=== PATIENT | male | born 1930 | race Caucasian/White ===

== ENCOUNTER 2018-05-06 11:44 | Inpatient (IN) ==
[2018-05-06] MEDS ORDERED: SODIUM CHLORIDE 0.9% 1,000 ML IV STA (13:13)
[2018-05-06 14:15] LABS: Basophils # 0.1 10*3/uL (0.0-0.2); Basophils % 0.8 % (0.0-0.8); Eosinophils # 0.2 10*3/uL (0.0-0.87); Eosinophils % 3.9 % (0.00-10.9); Hematocrit 41.4 VOL% (42.0-52.0); Hemoglobin 13.7 GM/DL (14.0-18.0); Immature Granulocytes % 0.2 %; Immature Granulocytes Absolute 0.01 #; Lymphocytes # 1.8 10*3/uL (1.4-4.0); Lymphocytes % 29.3 % (21.2-54.2); Mean Corpuscular HGB Conc 33.1 GM/DL (32-36); Mean Corpuscular Hemoglobin 32 PG (27-34); Mean Corpuscular Volume 96.3 FL (87-102); Mean Platelet Volume 9.6 FL (9.6-12.0); Monocytes # 0.7 10*3/uL (0.11-0.8); Monocytes % 10.7 % (1.7-12.7); Neutrophils # 3.4 10*3/uL (1.4-7.4); Neutrophils % 55.1 % (38.7-73.9); Platelet Count 115 T/CUMM (130-400); Red Cell Distribution Width 12.1 % (9.3-17.3); White Blood Count 6.2 T/CUMM (4-12)
[2018-05-06 14:30] LABS: INR 1.1; PT Patient Result 11.4 SECS
[2018-05-06 14:31] LABS: Apearance,Urine CLOUDY (Clear); Bacteria,Urine Many /HPF (Few); Bilirubin,Urine Negative (Negative); Blood, Urine Small mg/dL (Negative); Glucose,Urine (UA) Negative (Negative); Hyaline Casts,Urine 18 /LPF (0-3); Ketones,Urine Negative (Negative); Mucus,Urine Occasional /LPF (Occasional); Nitrite,Urine Positive (Negative); Protein,Urine Negative; RBC,Urine 13 /HPF (0-4); Renal Epithelial Cells,Urine Few /HPF (<1); Squamous Epithelial Cell,Urine Occasional /HPF (0-10); Transitional Epi Cells,Urine Occasional /HPF (<1); Urine Color Yellow (Yellow); Urine Specific Gravity 1.014 (1.001-1.035); Urine Urobilinogen < 2.0 EU/DL (0.2-1.0); WBC,Urine 74 /HPF (0-6)
[2018-05-06 14:44] LABS: Alanine Aminotransferase 18 U/L (16-61); Albumin 3.3 G/DL (3.4-5.0); Alkaline Phosphatase 56 U/L (45-117); Aspartate Amino Transferase 13 U/L (0-37); Bilirubin,Total < 0.39 MG/DL (0.2-1.0); Blood Urea Nitrogen 36 MG/DL (7-18); Calcium 8.6 MG/DL (8.5-10.1); Glucose 112 MG/DL (74-106); Osmolality,Calculated 291.1 MOS/KG (273-304); Potassium 3.8 MMOL/L (3.5-5.1); Sodium 142 MMOL/L (136-145); Total Protein 6.5 G/DL (6.4-8.3)
[2018-05-06] MEDS ORDERED: MEROPENEM 500 MG in SODIUM CHLORIDE 0.9% 100 ML IV STA (14:51)
[2018-05-06] MEDS: ACETAMINOPHEN 325 MG TABLET PO PRN (16:00)
[2018-05-06] MEDS ORDERED: INFLUENZA VIRUS VACCINE 0.5 ML SYRINGE IM ONE (17:35)
[2018-05-06] MEDS: CARVEDILOL 3.125 MG TABLET PO SCH (17:55)
[2018-05-06] MEDS: SODIUM CHLORIDE 0.9% 1,000 ML IV SCH (17:55)
[2018-05-06] MEDS: SIMVASTATIN 40 MG TABLET PO SCH (21:10)
[2018-05-06] MEDS: METHENAMINE HIPPURATE 1 GM TABLET PO SCH (21:10)
[2018-05-06] MEDS: DOCUSATE SODIUM 100 MG CAPSULE PO SCH (21:10)
[2018-05-07] MEDS: SODIUM CHLORIDE 0.9% 1,000 ML IV SCH ×2 (01:13→19:41)
[2018-05-07 05:06] LABS: Basophils % 0.7 % (0.0-0.8); Eosinophils # 0.3 10*3/uL (0.0-0.87); Eosinophils % 5.7 % (0.00-10.9); Hematocrit 38.3 VOL% (42.0-52.0); Hemoglobin 12.7 GM/DL (14.0-18.0); Immature Granulocytes % 0.2 %; Immature Granulocytes Absolute 0.01 #; Lymphocytes # 1.7 10*3/uL (1.4-4.0); Lymphocytes % 30.9 % (21.2-54.2); Mean Corpuscular HGB Conc 33.2 GM/DL (32-36); Mean Corpuscular Hemoglobin 32 PG (27-34); Mean Corpuscular Volume 96.5 FL (87-102); Mean Platelet Volume 10.4 FL (9.6-12.0); Monocytes # 0.7 10*3/uL (0.11-0.8); Monocytes % 13.1 % (1.7-12.7); Neutrophils # 2.7 10*3/uL (1.4-7.4); Neutrophils % 49.4 % (38.7-73.9); Platelet Count 99 T/CUMM (130-400); Red Blood Count 3.97 MC/CUMM (3.8-5.5); Red Cell Distribution Width 12.1 % (9.3-17.3); White Blood Count 5.4 T/CUMM (4-12)
[2018-05-07 05:32] LABS: Calcium 8.4 MG/DL (8.5-10.1); Osmolality,Calculated 295.7 MOS/KG (273-304); Potassium 3.5 MMOL/L (3.5-5.1)
[2018-05-07 05:38] LABS: Eosinophils 6 % (0-10); Hypochromasia 1+; Lymphocytes 38 % (20-55); Platelet Estimate Decreased; Segmented Neutrophils 42 % (50-85); Total Cells Counted 100
[2018-05-07] MEDS: MEROPENEM 500 MG in SODIUM CHLORIDE 0.9% 100 ML IV SCH ×2 (06:31→21:15)
[2018-05-07] MEDS: METHENAMINE HIPPURATE 1 GM TABLET PO SCH ×2 (11:55→21:14)
[2018-05-07] MEDS: FUROSEMIDE 20 MG TABLET PO SCH (11:55)
[2018-05-07] MEDS: CARVEDILOL 3.125 MG TABLET PO SCH ×2 (11:55→16:08)
[2018-05-07] MEDS: ASPIRIN EC 81 MG TABLET PO SCH (11:56)
[2018-05-07] MEDS: GLIMEPIRIDE 2 MG TABLET PO SCH (11:56)
[2018-05-07] MEDS: PANTOPRAZOLE 40 MG TABLET PO SCH (11:56)
[2018-05-07] MEDS: MULTIVITAMIN (CENTRUM) TABLET PO SCH (11:56)
[2018-05-07] MEDS: CITALOPRAM 20 MG TABLET PO SCH (11:56)
[2018-05-07] MEDS: DOCUSATE SODIUM 100 MG CAPSULE PO SCH ×2 (11:56→21:14)
[2018-05-07] MEDS: ACETAMINOPHEN 325 MG TABLET PO PRN (16:07)
[2018-05-07] MEDS: SIMVASTATIN 40 MG TABLET PO SCH (21:14)
[2018-05-08] MEDS: SODIUM CHLORIDE 0.9% 1,000 ML IV SCH ×3 (04:09→20:35)
[2018-05-08] MEDS: CITALOPRAM 20 MG TABLET PO SCH (09:34)
[2018-05-08] MEDS: GLIMEPIRIDE 2 MG TABLET PO SCH (09:34)
[2018-05-08] MEDS: FUROSEMIDE 20 MG TABLET PO SCH (09:34)
[2018-05-08] MEDS: DOCUSATE SODIUM 100 MG CAPSULE PO SCH ×2 (09:34→21:19)
[2018-05-08] MEDS: METHENAMINE HIPPURATE 1 GM TABLET PO SCH ×2 (09:35→21:19)
[2018-05-08] MEDS: PANTOPRAZOLE 40 MG TABLET PO SCH (09:35)
[2018-05-08] MEDS: MULTIVITAMIN (CENTRUM) TABLET PO SCH (09:35)
[2018-05-08] MEDS: MEROPENEM 500 MG in SODIUM CHLORIDE 0.9% 100 ML IV SCH ×2 (09:35→21:22)
[2018-05-08] MEDS: ASPIRIN EC 81 MG TABLET PO SCH (09:35)
[2018-05-08] MEDS: CARVEDILOL 3.125 MG TABLET PO SCH ×2 (09:35→18:09)
[2018-05-08] MEDS: ACETAMINOPHEN 325 MG TABLET PO PRN (09:36)
[2018-05-08] MEDS ORDERED: amLODIPine 5 MG TABLET PO SCH (16:00)
[2018-05-08] MEDS ORDERED: ZIPRASIDONE 20 MG/1 ML VIAL IM ONE (17:21)
[2018-05-08] MEDS: SIMVASTATIN 40 MG TABLET PO SCH (21:19)
[2018-05-09] MEDS: SODIUM CHLORIDE 0.9% 1,000 ML IV SCH ×4 (01:37→22:49)
[2018-05-09] MEDS: MEROPENEM 500 MG in SODIUM CHLORIDE 0.9% 100 ML IV SCH ×2 (05:20→18:16)
[2018-05-09] MEDS: CITALOPRAM 20 MG TABLET PO SCH (08:16)
[2018-05-09] MEDS: GLIMEPIRIDE 2 MG TABLET PO SCH (08:16)
[2018-05-09] MEDS: PANTOPRAZOLE 40 MG TABLET PO SCH (08:17)
[2018-05-09] MEDS: DOCUSATE SODIUM 100 MG CAPSULE PO SCH ×2 (08:17→20:01)
[2018-05-09] MEDS: MULTIVITAMIN (CENTRUM) TABLET PO SCH (08:17)
[2018-05-09] MEDS: METHENAMINE HIPPURATE 1 GM TABLET PO SCH ×2 (08:17→20:01)
[2018-05-09] MEDS: CARVEDILOL 3.125 MG TABLET PO SCH (08:18)
[2018-05-09] MEDS: FUROSEMIDE 20 MG TABLET PO SCH (08:18)
[2018-05-09] MEDS: ASPIRIN EC 81 MG TABLET PO SCH (08:21)
[2018-05-09] MEDS: ASCORBIC ACID 500 MG TABLET PO SCH ×2 (14:16→20:01)
[2018-05-09] MEDS ORDERED: ZIPRASIDONE 20 MG/1 ML VIAL IM ONE (18:00)
[2018-05-09] MEDS: CARVEDILOL 6.25 MG TABLET PO SCH (18:18)
[2018-05-09] MEDS: SIMVASTATIN 40 MG TABLET PO SCH (20:01)
[2018-05-10 05:32] LABS: VLDL CHOLESTEROL 39.4 MG/DL
[2018-05-10] MEDS ORDERED: REGADENOSON 0.4 MG/5 ML SYRINGE IV ONE (09:22)
[2018-05-10] MEDS: ACETAMINOPHEN 325 MG TABLET PO PRN (09:39)
[2018-05-10] MEDS: MEROPENEM 500 MG in SODIUM CHLORIDE 0.9% 100 ML IV SCH ×2 (09:39→17:18)
[2018-05-10] MEDS: GLIMEPIRIDE 2 MG TABLET PO SCH (09:40)
[2018-05-10] MEDS: METHENAMINE HIPPURATE 1 GM TABLET PO SCH ×2 (09:40→20:35)
[2018-05-10] MEDS: FUROSEMIDE 20 MG TABLET PO SCH (09:40)
[2018-05-10] MEDS: MULTIVITAMIN (CENTRUM) TABLET PO SCH (09:40)
[2018-05-10] MEDS: ASPIRIN EC 81 MG TABLET PO SCH (09:41)
[2018-05-10] MEDS: CITALOPRAM 20 MG TABLET PO SCH (09:41)
[2018-05-10] MEDS: DOCUSATE SODIUM 100 MG CAPSULE PO SCH ×2 (09:41→20:35)
[2018-05-10] MEDS: PANTOPRAZOLE 40 MG TABLET PO SCH (09:41)
[2018-05-10] MEDS: ASCORBIC ACID 500 MG TABLET PO SCH ×2 (09:41→20:35)
[2018-05-10] MEDS: CARVEDILOL 6.25 MG TABLET PO SCH ×2 (09:42→16:17)
[2018-05-10] MEDS: SODIUM CHLORIDE 0.9% 1,000 ML IV SCH ×3 (09:42→20:37)
[2018-05-10] MEDS: OMEGA 3 ACID ETHYL ESTERS 1 GM CAPSULE PO SCH (15:10)
[2018-05-10] MEDS: AMITRIPTYLINE 25 MG TABLET PO PRN (20:35)
[2018-05-10] MEDS: ATORVASTATIN 40 MG TABLET PO SCH (20:35)
[2018-05-11] MEDS: cloNIDine 0.1 MG TABLET PO PRN (00:06)
[2018-05-11] MEDS: SODIUM CHLORIDE 0.9% 1,000 ML IV SCH ×2 (05:10→13:01)
[2018-05-11] MEDS ORDERED: VANCOMYCIN INJ 500 MG in SODIUM CHLORIDE 0.9% 100 ML IV ONE (06:00)
[2018-05-11] MEDS: MEROPENEM 500 MG in SODIUM CHLORIDE 0.9% 100 ML IV SCH ×2 (07:12→18:14)
[2018-05-11] MEDS ORDERED: HEPARIN 5,000 UNIT/1 ML VIAL ONE (08:09)
[2018-05-11] MEDS ORDERED: LIDOCAINE 1% 20 ML VIAL ONE (08:10)
[2018-05-11] MEDS: CARVEDILOL 6.25 MG TABLET PO SCH ×2 (08:12→17:09)
[2018-05-11] MEDS ORDERED: NITROGLYCERIN DRIP 50 MG/250 ML BOTTLE IV ONE ×2 (09:23→09:39)
[2018-05-11] MEDS ORDERED: PHENYLEPHRINE DRIP 20 MG/250 ML PREMIX IV ONE (09:23)
[2018-05-11] MEDS ORDERED: HEPARIN/NACL 0.9% 2 UNITS/ML 500 ML IV ONE (09:23)
[2018-05-11] MEDS: LACTATED RINGERS 1,000 ML IV SCH ×3 (10:01→23:30)
[2018-05-11] MEDS ORDERED: NALOXONE 0.4 MG/ML VIAL IV PRN (11:32)
[2018-05-11] MEDS ORDERED: GLUCAGON 1 MG VIAL IM PRN (11:32)
[2018-05-11] MEDS ORDERED: oxyCODONE/ACETAMINOPHEN 5-325 MG TABLET PO PRN (11:32)
[2018-05-11] MEDS ORDERED: DEXTROSE 50% 25 GM/50 ML SYRINGE IV PRN (11:32)
[2018-05-11] MEDS ORDERED: fentaNYL 100 MCG/2 ML VIAL ONE (12:05)
[2018-05-11] MEDS ORDERED: HEPARIN 10,000 UNIT/10 ML VIAL ONE (12:06)
[2018-05-11] MEDS ORDERED: PROPOFOL 200 MG/20 ML VIAL IV ONE (12:06)
[2018-05-11] MEDS ORDERED: ONDANSETRON 4 MG/2 ML VIAL ONE (12:06)
[2018-05-11] MEDS ORDERED: SEVOFLURANE 1 UNIT/15 MINUTE INH ONE (12:06)
[2018-05-11] MEDS ORDERED: ePHEDrine 50 MG/ML AMP ONE (12:06)
[2018-05-11] MEDS ORDERED: ROCURONIUM 100 MG/10 ML VIAL IV ONE (12:07)
[2018-05-11] MEDS ORDERED: NEOSTIGMINE 10 MG/10 ML VIAL ONE (12:07)
[2018-05-11] MEDS ORDERED: GLYCOPYRROLATE 0.4 MG/2 ML VIAL ONE (12:07)
[2018-05-11] MEDS ORDERED: LABETALOL 100 MG/20 ML VIAL IV ONE (12:07)
[2018-05-11] MEDS ORDERED: PROTAMINE SULFATE 50 MG/5 ML VIAL IV ONE (12:07)
[2018-05-11] MEDS ORDERED: NITROPRUSSIDE 50 MG/2 ML VIAL ONE ×2 (12:48)
[2018-05-11] MEDS: HYDROmorphone 2 MG/1 ML VIAL IV PRN ×2 (12:51→17:09)
[2018-05-11] MEDS: NITROPRUSSIDE 100 MG in DEXTROSE 5% 250 ML IV SCH (12:55)
[2018-05-11] MEDS: MULTIVITAMIN (CENTRUM) TABLET PO SCH (12:58)
[2018-05-11] MEDS: METHENAMINE HIPPURATE 1 GM TABLET PO SCH ×2 (12:58→20:20)
[2018-05-11] MEDS: DOCUSATE SODIUM 100 MG CAPSULE PO SCH ×2 (12:58→22:00)
[2018-05-11] MEDS: ASPIRIN EC 81 MG TABLET PO SCH (12:58)
[2018-05-11] MEDS: GLIMEPIRIDE 2 MG TABLET PO SCH (12:58)
[2018-05-11] MEDS: FUROSEMIDE 20 MG TABLET PO SCH (12:59)
[2018-05-11] MEDS: PANTOPRAZOLE 40 MG TABLET PO SCH (12:59)
[2018-05-11] MEDS: OMEGA 3 ACID ETHYL ESTERS 1 GM CAPSULE PO SCH (12:59)
[2018-05-11] MEDS: SERTRALINE 25 MG TABLET PO SCH (12:59)
[2018-05-11] MEDS: ASCORBIC ACID 500 MG TABLET PO SCH ×2 (12:59→20:20)
[2018-05-11] MEDS: PHENYLEPHRINE DRIP 40 MG/250 ML PREMIX IV SCH (12:59)
[2018-05-11] MEDS: ATORVASTATIN 40 MG TABLET PO SCH (20:21)
[2018-05-12] MEDS: HYDROmorphone 2 MG/1 ML VIAL IV PRN ×4 (00:04→23:06)
[2018-05-12 04:20] LABS: Basophils % 0.6 % (0.0-0.8); Eosinophils # 0.1 10*3/uL (0.0-0.87); Eosinophils % 1.6 % (0.00-10.9); Hematocrit 33.7 VOL% (42.0-52.0); Hemoglobin 11.1 GM/DL (14.0-18.0); Immature Granulocytes % 0.3 %; Immature Granulocytes Absolute 0.02 #; Lymphocytes # 1.2 10*3/uL (1.4-4.0); Lymphocytes % 16.5 % (21.2-54.2); Mean Corpuscular HGB Conc 32.9 GM/DL (32-36); Mean Corpuscular Hemoglobin 32 PG (27-34); Mean Corpuscular Volume 96.8 FL (87-102); Mean Platelet Volume 9.7 FL (9.6-12.0); Monocytes # 0.7 10*3/uL (0.11-0.8); Monocytes % 10.2 % (1.7-12.7); Neutrophils % 70.8 % (38.7-73.9); Platelet Count 101 T/CUMM (130-400); Red Blood Count 3.48 MC/CUMM (3.8-5.5); Red Cell Distribution Width 12.7 % (9.3-17.3)
[2018-05-12 04:38] LABS: Calcium 8.3 MG/DL (8.5-10.1); Osmolality,Calculated 286.1 MOS/KG (273-304); Potassium 3.9 MMOL/L (3.5-5.1)
[2018-05-12] MEDS: cloNIDine 0.1 MG TABLET PO PRN (05:30)
[2018-05-12] MEDS: NITROPRUSSIDE 100 MG in DEXTROSE 5% 250 ML IV SCH ×3 (05:41→19:07)
[2018-05-12] MEDS: MEROPENEM 500 MG in SODIUM CHLORIDE 0.9% 100 ML IV SCH ×2 (06:57→18:04)
[2018-05-12] MEDS: ONDANSETRON 4 MG/2 ML VIAL IV PRN (07:43)
[2018-05-12] MEDS ORDERED: NITROGLYCERIN SL 0.4 MG TABLET SL PRN (07:51)
[2018-05-12] MEDS ORDERED: ASPIRIN EC 325 MG TABLET PO ONE (08:06)
[2018-05-12] MEDS ORDERED: METOPROLOL TARTRATE 5 MG/5 ML VIAL IV ONE ×2 (08:09→08:20)
[2018-05-12] MEDS ORDERED: NITROGLYCERIN DRIP 50 MG/250 ML BOTTLE IV ONE (08:11)
[2018-05-12] MEDS ORDERED: ASPIRIN 325 MG TABLET PO ONE (08:16)
[2018-05-12] MEDS: NITROGLYCERIN DRIP 50 MG/250 ML BOTTLE IV SCH (08:17)
[2018-05-12] MEDS ORDERED: METOPROLOL TARTRATE 50 MG TABLET PO ONE (08:18)
[2018-05-12] MEDS ORDERED: POTASSIUM CHLORIDE 20 MEQ TABLET PO PRN (08:24)
[2018-05-12] MEDS ORDERED: MAGNESIUM SULF RIDER 2 GM in PREMIX 1 EACH IV PRN (08:24)
[2018-05-12] MEDS: ENOXAPARIN 80 MG/0.8 ML SYRINGE SUBCUT SCH ×2 (08:26→21:03)
[2018-05-12] MEDS ORDERED: ENOXAPARIN 100 MG/ML SYRINGE SUBCUT SCH (08:30)
[2018-05-12] MEDS: LACTATED RINGERS 1,000 ML IV SCH ×2 (08:34→09:47)
[2018-05-12] MEDS: ASPIRIN EC 81 MG TABLET PO SCH (08:51)
[2018-05-12] MEDS: GLIMEPIRIDE 2 MG TABLET PO SCH (09:40)
[2018-05-12] MEDS: DOCUSATE SODIUM 100 MG CAPSULE PO SCH ×2 (09:41→21:03)
[2018-05-12] MEDS: MULTIVITAMIN (CENTRUM) TABLET PO SCH (09:41)
[2018-05-12] MEDS: CLOPIDOGREL 75 MG TABLET PO SCH (09:41)
[2018-05-12] MEDS: FUROSEMIDE 20 MG TABLET PO SCH (09:41)
[2018-05-12] MEDS: PANTOPRAZOLE 40 MG TABLET PO SCH (09:41)
[2018-05-12] MEDS: OMEGA 3 ACID ETHYL ESTERS 1 GM CAPSULE PO SCH (09:41)
[2018-05-12] MEDS: METHENAMINE HIPPURATE 1 GM TABLET PO SCH ×2 (09:41→21:03)
[2018-05-12] MEDS: METOPROLOL TARTRATE 50 MG TABLET PO SCH ×2 (09:42→21:03)
[2018-05-12] MEDS: ASCORBIC ACID 500 MG TABLET PO SCH ×2 (09:42→21:05)
[2018-05-12] MEDS: SERTRALINE 25 MG TABLET PO SCH (09:42)
[2018-05-12] MEDS: CARVEDILOL 6.25 MG TABLET PO SCH (09:45)
[2018-05-12] MEDS: PHENYLEPHRINE DRIP 40 MG/250 ML PREMIX IV SCH (11:25)
[2018-05-12] MEDS: ATORVASTATIN 40 MG TABLET PO SCH (21:03)
[2018-05-13] MEDS: ONDANSETRON 4 MG/2 ML VIAL IV PRN (02:11)
[2018-05-13] MEDS ORDERED: DEXAMETHASONE 10 MG/1 ML VIAL IV ONE (06:08)
[2018-05-13] MEDS: MEROPENEM 500 MG in SODIUM CHLORIDE 0.9% 100 ML IV SCH ×2 (06:32→17:44)
[2018-05-13] MEDS ORDERED: RACEPINEPHRINE 0.5 ML NEB RESP TX ONE (06:53)
[2018-05-13] MEDS ORDERED: ETOMIDATE 20 MG/10 ML VIAL IV ONE ×2 (07:00→07:09)
[2018-05-13] MEDS ORDERED: SUCCINYLCHOLINE 200 MG/10 ML VIAL ONE (07:01)
[2018-05-13] MEDS ORDERED: VECURONIUM 10 MG VIAL IV ONE (07:02)
[2018-05-13] MEDS ORDERED: SUCCINYLCHOLINE 200 MG/10 ML VIAL IV ONE (07:09)
[2018-05-13] MEDS: NITROGLYCERIN DRIP 50 MG/250 ML BOTTLE IV SCH (07:27)
[2018-05-13] MEDS: PROPOFOL 1,000 MG/100 ML BOTTLE IV SCH ×3 (07:30→18:25)
[2018-05-13] MEDS ORDERED: LIDOCAINE 2% TOP JELLY 20 ML VIAL INTRAURETH ONE ×2 (08:14→08:49)
[2018-05-13] MEDS ORDERED: VANCOMYCIN 500 MG VIAL ONE (08:23)
[2018-05-13] MEDS: GLIMEPIRIDE 2 MG TABLET PO SCH (09:04)
[2018-05-13] MEDS: CLOPIDOGREL 75 MG TABLET PO SCH (09:04)
[2018-05-13] MEDS: OMEGA 3 ACID ETHYL ESTERS 1 GM CAPSULE PO SCH (09:04)
[2018-05-13] MEDS: MULTIVITAMIN (CENTRUM) TABLET PO SCH (09:04)
[2018-05-13] MEDS: DOCUSATE SODIUM 100 MG CAPSULE PO SCH ×2 (09:04→21:17)
[2018-05-13] MEDS: METHENAMINE HIPPURATE 1 GM TABLET PO SCH ×2 (09:04→21:17)
[2018-05-13] MEDS: ASPIRIN EC 81 MG TABLET PO SCH (09:04)
[2018-05-13] MEDS: FUROSEMIDE 20 MG TABLET PO SCH (09:04)
[2018-05-13] MEDS: SERTRALINE 25 MG TABLET PO SCH (09:05)
[2018-05-13] MEDS: ASCORBIC ACID 500 MG TABLET PO SCH ×2 (09:05→21:18)
[2018-05-13] MEDS: PANTOPRAZOLE 40 MG TABLET PO SCH (09:05)
[2018-05-13] MEDS ORDERED: MIDAZOLAM 2 MG/2 ML VIAL ONE (09:27)
[2018-05-13] MEDS ORDERED: ROCURONIUM 100 MG/10 ML VIAL IV ONE (09:27)
[2018-05-13] MEDS ORDERED: PROPOFOL 200 MG/20 ML VIAL IV ONE (09:27)
[2018-05-13] MEDS ORDERED: PHENYLEPHRINE 1 MG/10 ML SYRINGE IV ONE (09:27)
[2018-05-13] MEDS ORDERED: fentaNYL 100 MCG/2 ML VIAL ONE (09:27)
[2018-05-13] MEDS ORDERED: SEVOFLURANE 1 UNIT/15 MINUTE INH ONE (09:27)
[2018-05-13] MEDS ORDERED: ENOXAPARIN 40 MG/0.4 ML SYRINGE SUBCUT ONE (09:34)
[2018-05-13 09:36] LABS: Apearance,Urine CLEAR (Clear); Bilirubin,Urine Negative (Negative); Blood, Urine Small mg/dL (Negative); Glucose,Urine (UA) Negative (Negative); Ketones,Urine 5 mg/dL (Negative); Mucus,Urine Occasional /LPF (Occasional); Nitrite,Urine Negative (Negative); Protein,Urine Negative; RBC,Urine 6 /HPF (0-4); Squamous Epithelial Cell,Urine Occasional /HPF (0-10); Urine Color Straw (Yellow); Urine Specific Gravity 1.008 (1.001-1.035); Urine Urobilinogen < 2.0 EU/DL (0.2-1.0); WBC,Urine 1 /HPF (0-6)
[2018-05-13] MEDS: METOPROLOL TARTRATE 50 MG TABLET PO SCH ×2 (09:43→21:18)
[2018-05-13 09:51] LABS: Allen Test Positive; Pt O2 Delivery Device Ventilator
[2018-05-13 09:52] LABS: ABG Base Excess -2.6 MMOL/L (-2.5-2.5); ABG HCO3 22.2 MMOL/L (20-26); ABG Oxygen Saturation 97.6 % (95-100); ABG PCO2 34.6 MM HG (35-48); ABG PH 7.403 (7.35-7.45); ABG PO2 90.6 MM HG (80-95); ABG TCO2 19.4 MMOL/L (23-27)
[2018-05-13] MEDS: LACTATED RINGERS 1,000 ML IV SCH (10:23)
[2018-05-13] MEDS: HYDROmorphone 2 MG/1 ML VIAL IV PRN ×2 (11:23→17:44)
[2018-05-13] MEDS: PHENYLEPHRINE DRIP 40 MG/250 ML PREMIX IV SCH (11:38)
[2018-05-13] MEDS: ALBUTEROL/IPRATROPIUM 3 ML NEB RESP TX SCH ×2 (12:47→19:44)
[2018-05-13] MEDS: NITROPRUSSIDE 100 MG in DEXTROSE 5% 250 ML IV SCH (13:11)
[2018-05-13] MEDS: ATORVASTATIN 40 MG TABLET PO SCH (21:18)
[2018-05-14] MEDS: PROPOFOL 1,000 MG/100 ML BOTTLE IV SCH ×5 (00:20→18:22)
[2018-05-14] MEDS: ALBUTEROL/IPRATROPIUM 3 ML NEB RESP TX SCH ×4 (01:15→20:21)
[2018-05-14] MEDS: HYDROmorphone 2 MG/1 ML VIAL IV PRN ×5 (04:56→21:10)
[2018-05-14 05:25] LABS: Basophils % 0.2 % (0.0-0.8); Eosinophils # 0.1 10*3/uL (0.0-0.87); Eosinophils % 0.7 % (0.00-10.9); Hematocrit 30.3 VOL% (42.0-52.0); Immature Granulocytes % 0.5 %; Immature Granulocytes Absolute 0.04 #; Lymphocytes # 1.4 10*3/uL (1.4-4.0); Mean Corpuscular Hemoglobin 32 PG (27-34); Mean Corpuscular Volume 95.9 FL (87-102); Mean Platelet Volume 10.3 FL (9.6-12.0); Monocytes % 11.4 % (1.7-12.7); Neutrophils # 6.1 10*3/uL (1.4-7.4); Neutrophils % 71.2 % (38.7-73.9); Platelet Count 100 T/CUMM (130-400); Red Blood Count 3.16 MC/CUMM (3.8-5.5); Red Cell Distribution Width 12.3 % (9.3-17.3); White Blood Count 8.6 T/CUMM (4-12)
[2018-05-14 05:37] LABS: Calcium 8.4 MG/DL (8.5-10.1); Osmolality,Calculated 291.1 MOS/KG (273-304); Potassium 3.3 MMOL/L (3.5-5.1)
[2018-05-14] MEDS ORDERED: VANCOMYCIN INJ 500 MG in SODIUM CHLORIDE 0.9% 100 ML IV ONE (09:00)
[2018-05-14] MEDS: GLIMEPIRIDE 2 MG TABLET PO SCH (09:01)
[2018-05-14] MEDS: NITROGLYCERIN DRIP 50 MG/250 ML BOTTLE IV SCH (09:02)
[2018-05-14] MEDS: DOCUSATE SODIUM 100 MG CAPSULE PO SCH ×2 (09:02→20:41)
[2018-05-14] MEDS: ASPIRIN EC 81 MG TABLET PO SCH (09:02)
[2018-05-14] MEDS: MULTIVITAMIN (CENTRUM) TABLET PO SCH (09:02)
[2018-05-14] MEDS: CLOPIDOGREL 75 MG TABLET PO SCH (09:03)
[2018-05-14] MEDS: ASCORBIC ACID 500 MG TABLET PO SCH ×2 (09:03→20:41)
[2018-05-14] MEDS: FUROSEMIDE 20 MG TABLET PO SCH (09:03)
[2018-05-14] MEDS: PANTOPRAZOLE 40 MG TABLET PO SCH (09:03)
[2018-05-14] MEDS: OMEGA 3 ACID ETHYL ESTERS 1 GM CAPSULE PO SCH (09:03)
[2018-05-14] MEDS: METOPROLOL TARTRATE 50 MG TABLET PO SCH ×2 (09:03→20:41)
[2018-05-14] MEDS: POTASSIUM CHLORIDE RIDER 10 MEQ in PREMIX 1 EACH IV PRN ×4 (09:04→14:00)
[2018-05-14] MEDS: SERTRALINE 25 MG TABLET PO SCH (09:04)
[2018-05-14] MEDS: LACTATED RINGERS 1,000 ML IV SCH ×2 (10:02→21:11)
[2018-05-14] MEDS ORDERED: HEPARIN 5,000 UNIT/1 ML VIAL ONE (10:52)
[2018-05-14] MEDS ORDERED: TISSUE ADHESIVE 1 EACH APPLICATOR TOP ONE (10:52)
[2018-05-14] MEDS ORDERED: LIDOCAINE 1% 20 ML VIAL ONE (10:53)
[2018-05-14] MEDS ORDERED: BUPIVACAINE 0.5% 50 ML VIAL ONE (10:59)
[2018-05-14] MEDS ORDERED: MICROFIBRILLAR COLLAGEN POWDER 1 GM CAN TOP ONE (10:59)
[2018-05-14] MEDS ORDERED: VANCOMYCIN 500 MG VIAL ONE ×2 (11:42→11:48)
[2018-05-14] MEDS ORDERED: PROPOFOL 200 MG/20 ML VIAL IV ONE (13:09)
[2018-05-14] MEDS ORDERED: fentaNYL 100 MCG/2 ML VIAL ONE (13:09)
[2018-05-14] MEDS ORDERED: ROCURONIUM 100 MG/10 ML VIAL IV ONE (13:09)
[2018-05-14] MEDS ORDERED: SEVOFLURANE 1 UNIT/15 MINUTE INH ONE (13:09)
[2018-05-14] MEDS: NITROPRUSSIDE 100 MG in DEXTROSE 5% 250 ML IV SCH (13:14)
[2018-05-14] MEDS: PHENYLEPHRINE DRIP 40 MG/250 ML PREMIX IV SCH (13:14)
[2018-05-14] MEDS: ATORVASTATIN 40 MG TABLET PO SCH (20:41)
[2018-05-15] MEDS: HYDROmorphone 2 MG/1 ML VIAL IV PRN ×7 (00:22→20:11)
[2018-05-15] MEDS: ALBUTEROL/IPRATROPIUM 3 ML NEB RESP TX SCH ×4 (01:53→20:11)
[2018-05-15 05:10] LABS: ABG Base Excess 0.7 MMOL/L (-2.5-2.5); ABG HCO3 25.1 MMOL/L (20-26); ABG Oxygen Saturation 97.2 % (95-100); ABG PCO2 44.2 MM HG (35-48); ABG PH 7.379 (7.35-7.45); ABG PO2 89.6 MM HG (80-95)
[2018-05-15 05:11] LABS: Allen Test Positive; Pt O2 Delivery Device Ventilator
[2018-05-15] MEDS: LACTATED RINGERS 1,000 ML IV SCH (05:27)
[2018-05-15] MEDS: PROPOFOL 1,000 MG/100 ML BOTTLE IV SCH ×2 (05:27→08:48)
[2018-05-15] MEDS ORDERED: hydrALAZINE 20 MG/1 ML VIAL IV PRN (08:24)
[2018-05-15] MEDS ORDERED: LABETALOL 100 MG/20 ML VIAL IV ONE (08:27)
[2018-05-15 08:51] LABS: ABG Base Excess -0.3 MMOL/L (-2.5-2.5); ABG HCO3 24.2 MMOL/L (20-26); ABG Oxygen Saturation 96.1 % (95-100); ABG PCO2 47.2 MM HG (35-48); ABG PH 7.345 (7.35-7.45); ABG PO2 83.4 MM HG (80-95); ABG TCO2 23.5 MMOL/L (23-27)
[2018-05-15] MEDS: NITROGLYCERIN DRIP 50 MG/250 ML BOTTLE IV SCH (08:51)
[2018-05-15] MEDS: PANTOPRAZOLE 40 MG TABLET PO SCH (11:36)
[2018-05-15] MEDS: FUROSEMIDE 20 MG TABLET PO SCH (11:50)
[2018-05-15] MEDS: METOPROLOL TARTRATE 50 MG TABLET PO SCH ×2 (11:50→20:11)
[2018-05-15] MEDS: CLOPIDOGREL 75 MG TABLET PO SCH (11:51)
[2018-05-15] MEDS: SERTRALINE 25 MG TABLET PO SCH (11:52)
[2018-05-15] MEDS: ACETAMINOPHEN 325 MG TABLET PO PRN (11:53)
[2018-05-15] MEDS: ASPIRIN EC 81 MG TABLET PO SCH (11:54)
[2018-05-15] MEDS: DOCUSATE SODIUM 100 MG CAPSULE PO SCH ×2 (11:55→20:17)
[2018-05-15] MEDS: GLIMEPIRIDE 2 MG TABLET PO SCH (11:57)
[2018-05-15] MEDS: ASCORBIC ACID 500 MG TABLET PO SCH ×2 (11:58→20:17)
[2018-05-15] MEDS: PHENYLEPHRINE DRIP 40 MG/250 ML PREMIX IV SCH (12:54)
[2018-05-15] MEDS: NITROPRUSSIDE 100 MG in DEXTROSE 5% 250 ML IV SCH (12:59)
[2018-05-15] MEDS: MULTIVITAMIN (CENTRUM) TABLET PO SCH (14:13)
[2018-05-15] MEDS: OMEGA 3 ACID ETHYL ESTERS 1 GM CAPSULE PO SCH (14:13)
[2018-05-15] MEDS: AMITRIPTYLINE 25 MG TABLET PO PRN (20:11)
[2018-05-15] MEDS: ATORVASTATIN 40 MG TABLET PO SCH (20:17)
[2018-05-16] MEDS: ALBUTEROL/IPRATROPIUM 3 ML NEB RESP TX SCH ×4 (01:50→19:44)
[2018-05-16] MEDS: oxyCODONE/ACETAMINOPHEN 5-325 MG TABLET PO PRN ×2 (04:13→13:15)
[2018-05-16 05:36] LABS: Basophils % 0.2 % (0.0-0.8); Eosinophils # 0.2 10*3/uL (0.0-0.87); Eosinophils % 1.7 % (0.00-10.9); Hemoglobin 9.5 GM/DL (14.0-18.0); Immature Granulocytes % 0.6 %; Immature Granulocytes Absolute 0.06 #; Lymphocytes # 0.7 10*3/uL (1.4-4.0); Lymphocytes % 6.1 % (21.2-54.2); Mean Corpuscular HGB Conc 32.8 GM/DL (32-36); Mean Corpuscular Hemoglobin 31 PG (27-34); Mean Corpuscular Volume 95.4 FL (87-102); Mean Platelet Volume 10.5 FL (9.6-12.0); Monocytes # 0.9 10*3/uL (0.11-0.8); Monocytes % 8.8 % (1.7-12.7); Neutrophils # 8.8 10*3/uL (1.4-7.4); Neutrophils % 82.6 % (38.7-73.9); Platelet Count 129 T/CUMM (130-400); Red Blood Count 3.04 MC/CUMM (3.8-5.5); Red Cell Distribution Width 12.2 % (9.3-17.3); White Blood Count 10.6 T/CUMM (4-12)
[2018-05-16 05:54] LABS: Calcium 8.4 MG/DL (8.5-10.1); Osmolality,Calculated 286.4 MOS/KG (273-304); Potassium 3.5 MMOL/L (3.5-5.1)
[2018-05-16] MEDS: NITROGLYCERIN DRIP 50 MG/250 ML BOTTLE IV SCH (08:30)
[2018-05-16] MEDS: MULTIVITAMIN (CENTRUM) TABLET PO SCH (09:30)
[2018-05-16] MEDS: PANTOPRAZOLE 40 MG TABLET PO SCH (09:30)
[2018-05-16] MEDS: FUROSEMIDE 20 MG TABLET PO SCH (09:30)
[2018-05-16] MEDS: clonazePAM 0.5 MG TABLET PO SCH ×2 (09:30→20:19)
[2018-05-16] MEDS: DOCUSATE SODIUM 100 MG CAPSULE PO SCH ×2 (09:30→20:21)
[2018-05-16] MEDS: GLIMEPIRIDE 2 MG TABLET PO SCH (09:30)
[2018-05-16] MEDS: SERTRALINE 25 MG TABLET PO SCH (09:30)
[2018-05-16] MEDS: CLOPIDOGREL 75 MG TABLET PO SCH (09:30)
[2018-05-16] MEDS: METOPROLOL TARTRATE 50 MG TABLET PO SCH ×2 (09:30→20:20)
[2018-05-16] MEDS: ASCORBIC ACID 500 MG TABLET PO SCH ×2 (09:30→20:19)
[2018-05-16] MEDS: ASPIRIN EC 81 MG TABLET PO SCH (09:30)
[2018-05-16] MEDS: OMEGA 3 ACID ETHYL ESTERS 1 GM CAPSULE PO SCH (09:30)
[2018-05-16] MEDS: NITROPRUSSIDE 100 MG in DEXTROSE 5% 250 ML IV SCH (12:00)
[2018-05-16] MEDS: PHENYLEPHRINE DRIP 40 MG/250 ML PREMIX IV SCH (12:00)
[2018-05-16] MEDS: ATORVASTATIN 40 MG TABLET PO SCH (20:21)
[2018-05-17] MEDS: ALBUTEROL/IPRATROPIUM 3 ML NEB RESP TX SCH ×4 (00:58→19:55)
[2018-05-17 01:58] LABS: ABG Base Excess 2.2 MMOL/L (-2.5-2.5); ABG HCO3 26.2 MMOL/L (20-26); ABG Oxygen Saturation 88.9 % (95-100); ABG PCO2 37.4 MM HG (35-48); ABG PH 7.452 (7.35-7.45); ABG TCO2 23.8 MMOL/L (23-27); Allen Test Positive; Pt O2 Delivery Device Venturi Mask
[2018-05-17 04:41] LABS: ABG Base Excess 3.1 MMOL/L (-2.5-2.5); ABG HCO3 27.1 MMOL/L (20-26); ABG Oxygen Saturation 92.9 % (95-100); ABG PCO2 34.5 MM HG (35-48); ABG PO2 61.9 MM HG (80-95); ABG TCO2 23.9 MMOL/L (23-27); Allen Test Positive; Pt O2 Delivery Device Other
[2018-05-17 05:54] LABS: Basophils % 0.3 % (0.0-0.8); Eosinophils # 0.3 10*3/uL (0.0-0.87); Eosinophils % 3.3 % (0.00-10.9); Hematocrit 27.9 VOL% (42.0-52.0); Hemoglobin 9.4 GM/DL (14.0-18.0); Immature Granulocytes % 0.5 %; Immature Granulocytes Absolute 0.04 #; Lymphocytes # 0.8 10*3/uL (1.4-4.0); Mean Corpuscular HGB Conc 33.7 GM/DL (32-36); Mean Corpuscular Hemoglobin 32 PG (27-34); Mean Corpuscular Volume 94.3 FL (87-102); Mean Platelet Volume 9.9 FL (9.6-12.0); Monocytes # 0.8 10*3/uL (0.11-0.8); Monocytes % 9.7 % (1.7-12.7); Neutrophils # 6.7 10*3/uL (1.4-7.4); Neutrophils % 77.2 % (38.7-73.9); Platelet Count 137 T/CUMM (130-400); Red Blood Count 2.96 MC/CUMM (3.8-5.5); Red Cell Distribution Width 12.2 % (9.3-17.3); White Blood Count 8.7 T/CUMM (4-12)
[2018-05-17] MEDS ORDERED: FUROSEMIDE 40 MG/4 ML VIAL IV ONE (06:00)
[2018-05-17] MEDS: LORazepam 2 MG/1 ML VIAL IV PRN (06:04)
[2018-05-17 06:09] LABS: Calcium 8.7 MG/DL (8.5-10.1); Osmolality,Calculated 285.3 MOS/KG (273-304)
[2018-05-17] MEDS: ZIPRASIDONE 20 MG/1 ML VIAL IM PRN ×2 (07:10→14:15)
[2018-05-17] MEDS: NITROGLYCERIN DRIP 50 MG/250 ML BOTTLE IV SCH (08:30)
[2018-05-17] MEDS: SODIUM CHLORIDE 0.45% 500 ML IV SCH (08:45)
[2018-05-17] MEDS: ASPIRIN EC 81 MG TABLET PO SCH (09:00)
[2018-05-17] MEDS: MULTIVITAMIN (CENTRUM) TABLET PO SCH (09:00)
[2018-05-17] MEDS: SERTRALINE 25 MG TABLET PO SCH (09:00)
[2018-05-17] MEDS: PANTOPRAZOLE 40 MG TABLET PO SCH (09:00)
[2018-05-17] MEDS: METOPROLOL TARTRATE 50 MG TABLET PO SCH (09:00)
[2018-05-17] MEDS: DOCUSATE SODIUM 100 MG CAPSULE PO SCH ×2 (09:00→20:46)
[2018-05-17] MEDS: FUROSEMIDE 20 MG TABLET PO SCH (09:00)
[2018-05-17] MEDS: clonazePAM 0.5 MG TABLET PO SCH ×2 (09:00→20:46)
[2018-05-17] MEDS: ASCORBIC ACID 500 MG TABLET PO SCH ×2 (09:00→20:46)
[2018-05-17] MEDS: CLOPIDOGREL 75 MG TABLET PO SCH (09:00)
[2018-05-17] MEDS: OMEGA 3 ACID ETHYL ESTERS 1 GM CAPSULE PO SCH (09:00)
[2018-05-17] MEDS: GLIMEPIRIDE 2 MG TABLET PO SCH (09:00)
[2018-05-17] MEDS: methylPREDNISolone SOD SUC 40 MG/1 ML VIAL IV SCH ×3 (09:05→22:46)
[2018-05-17] MEDS: POTASSIUM CHLORIDE RIDER 10 MEQ in PREMIX 1 EACH IV PRN ×6 (09:05→23:00)
[2018-05-17] MEDS: CEFTAROLINE 600 MG in SODIUM CHLORIDE 0.9% 100 ML IV SCH ×2 (09:10→20:43)
[2018-05-17] MEDS ORDERED: ALBUTEROL/IPRATROPIUM 3 ML NEB RESP TX PRN (10:42)
[2018-05-17 10:53] LABS: ABG Base Excess 2.9 MMOL/L (-2.5-2.5); ABG HCO3 26.1 MMOL/L (20-26); ABG Oxygen Saturation 89.8 % (95-100); ABG PH 7.491 (7.35-7.45); ABG PO2 58.5 MM HG (80-95); ABG TCO2 27.2 MMOL/L (23-27); Pt O2 Delivery Device Other
[2018-05-17] MEDS ORDERED: BISOPROLOL 5 MG TABLET PO SCH (12:00)
[2018-05-17] MEDS: NITROPRUSSIDE 100 MG in DEXTROSE 5% 250 ML IV SCH (12:00)
[2018-05-17] MEDS: PHENYLEPHRINE DRIP 40 MG/250 ML PREMIX IV SCH (12:00)
[2018-05-17] MEDS: METOPROLOL TARTRATE 5 MG/5 ML VIAL IV SCH ×2 (12:00→18:05)
[2018-05-17] MEDS: ATORVASTATIN 40 MG TABLET PO SCH (20:46)
[2018-05-18] MEDS: ALBUTEROL/IPRATROPIUM 3 ML NEB RESP TX SCH ×4 (00:33→19:05)
[2018-05-18] MEDS: METOPROLOL TARTRATE 5 MG/5 ML VIAL IV SCH ×3 (01:08→12:58)
[2018-05-18] MEDS: POTASSIUM CHLORIDE RIDER 10 MEQ in PREMIX 1 EACH IV PRN (01:13)
[2018-05-18] MEDS: LORazepam 2 MG/1 ML VIAL IV PRN (04:32)
[2018-05-18] MEDS: methylPREDNISolone SOD SUC 40 MG/1 ML VIAL IV SCH ×3 (07:13→23:23)
[2018-05-18] MEDS ORDERED: FUROSEMIDE 40 MG/4 ML VIAL IV ONE (07:37)
[2018-05-18] MEDS: GLIMEPIRIDE 2 MG TABLET PO SCH (08:20)
[2018-05-18] MEDS: CEFTAROLINE 600 MG in SODIUM CHLORIDE 0.9% 100 ML IV SCH ×2 (08:21→20:23)
[2018-05-18] MEDS: SODIUM CHLORIDE 0.45% 500 ML IV SCH (09:49)
[2018-05-18] MEDS: NITROGLYCERIN DRIP 50 MG/250 ML BOTTLE IV SCH (09:51)
[2018-05-18] MEDS: ASCORBIC ACID 500 MG TABLET PO SCH ×2 (10:53→20:49)
[2018-05-18] MEDS: clonazePAM 0.5 MG TABLET PO SCH ×2 (10:53→21:40)
[2018-05-18] MEDS: SERTRALINE 25 MG TABLET PO SCH (10:53)
[2018-05-18] MEDS: CLOPIDOGREL 75 MG TABLET PO SCH (10:53)
[2018-05-18] MEDS: OMEGA 3 ACID ETHYL ESTERS 1 GM CAPSULE PO SCH (10:53)
[2018-05-18] MEDS: DOCUSATE SODIUM 100 MG CAPSULE PO SCH ×2 (10:53→20:49)
[2018-05-18] MEDS: ASPIRIN EC 81 MG TABLET PO SCH (10:53)
[2018-05-18] MEDS: MULTIVITAMIN (CENTRUM) TABLET PO SCH (10:54)
[2018-05-18] MEDS: FUROSEMIDE 20 MG TABLET PO SCH (10:54)
[2018-05-18] MEDS: PANTOPRAZOLE 40 MG TABLET PO SCH (10:55)
[2018-05-18] MEDS: PHENYLEPHRINE DRIP 40 MG/250 ML PREMIX IV SCH (12:51)
[2018-05-18] MEDS: NITROPRUSSIDE 100 MG in DEXTROSE 5% 250 ML IV SCH (12:52)
[2018-05-18] MEDS: BISOPROLOL 5 MG TABLET PO SCH ×2 (15:45→20:48)
[2018-05-18] MEDS: INSULIN REGULAR 100 UNIT/ML SUBCUT SCH ×2 (17:45→20:48)
[2018-05-18] MEDS: ATORVASTATIN 40 MG TABLET PO SCH (20:49)
[2018-05-18] MEDS: AMITRIPTYLINE 25 MG TABLET PO PRN (20:49)
[2018-05-19] MEDS: ALBUTEROL/IPRATROPIUM 3 ML NEB RESP TX SCH ×4 (01:36→18:57)
[2018-05-19 04:30] LABS: Basophils % 0.2 % (0.0-0.8); Eosinophils # 0.1 10*3/uL (0.0-0.87); Eosinophils % 0.6 % (0.00-10.9); Hematocrit 28.6 VOL% (42.0-52.0); Hemoglobin 9.3 GM/DL (14.0-18.0); Immature Granulocytes % 0.3 %; Immature Granulocytes Absolute 0.03 #; Lymphocytes # 1.6 10*3/uL (1.4-4.0); Lymphocytes % 16.7 % (21.2-54.2); Mean Corpuscular HGB Conc 32.5 GM/DL (32-36); Mean Corpuscular Hemoglobin 31 PG (27-34); Mean Corpuscular Volume 95.3 FL (87-102); Mean Platelet Volume 10.1 FL (9.6-12.0); Monocytes # 1.1 10*3/uL (0.11-0.8); Monocytes % 11.2 % (1.7-12.7); Neutrophils # 6.9 10*3/uL (1.4-7.4); Platelet Count 200 T/CUMM (130-400); Red Cell Distribution Width 11.9 % (9.3-17.3); White Blood Count 9.8 T/CUMM (4-12)
[2018-05-19 04:39] LABS: Calcium 8.8 MG/DL (8.5-10.1)
[2018-05-19] MEDS: ZIPRASIDONE 20 MG/1 ML VIAL IM PRN ×2 (06:01→23:36)
[2018-05-19] MEDS: methylPREDNISolone SOD SUC 40 MG/1 ML VIAL IV SCH ×3 (07:14→23:39)
[2018-05-19] MEDS: POTASSIUM CHLORIDE RIDER 10 MEQ in PREMIX 1 EACH IV PRN (07:47)
[2018-05-19] MEDS: INSULIN REGULAR 100 UNIT/ML SUBCUT SCH ×4 (08:13→20:51)
[2018-05-19] MEDS: NITROGLYCERIN DRIP 50 MG/250 ML BOTTLE IV SCH (10:14)
[2018-05-19] MEDS: CEFTAROLINE 600 MG in SODIUM CHLORIDE 0.9% 100 ML IV SCH ×2 (10:30→19:59)
[2018-05-19] MEDS: SERTRALINE 25 MG TABLET PO SCH (10:31)
[2018-05-19] MEDS: PANTOPRAZOLE 40 MG TABLET PO SCH (10:31)
[2018-05-19] MEDS: ASCORBIC ACID 500 MG TABLET PO SCH ×2 (10:31→20:49)
[2018-05-19] MEDS: ASPIRIN EC 81 MG TABLET PO SCH (10:32)
[2018-05-19] MEDS: POTASSIUM CHLORIDE 20 MEQ/15 ML UDCUP PO PRN ×4 (10:32→16:42)
[2018-05-19] MEDS: DOCUSATE SODIUM 100 MG CAPSULE PO SCH ×2 (10:32→20:49)
[2018-05-19] MEDS: MULTIVITAMIN (CENTRUM) TABLET PO SCH (10:32)
[2018-05-19] MEDS: CLOPIDOGREL 75 MG TABLET PO SCH (10:32)
[2018-05-19] MEDS: OMEGA 3 ACID ETHYL ESTERS 1 GM CAPSULE PO SCH (10:33)
[2018-05-19] MEDS: BISOPROLOL 5 MG TABLET PO SCH ×2 (10:33→20:49)
[2018-05-19] MEDS: clonazePAM 0.5 MG TABLET PO SCH ×2 (10:41→20:50)
[2018-05-19] MEDS: NITROPRUSSIDE 100 MG in DEXTROSE 5% 250 ML IV SCH (11:07)
[2018-05-19] MEDS: PHENYLEPHRINE DRIP 40 MG/250 ML PREMIX IV SCH (11:07)
[2018-05-19] MEDS: GLIMEPIRIDE 2 MG TABLET PO SCH (11:21)
[2018-05-19] MEDS: FUROSEMIDE 20 MG TABLET PO SCH (11:37)
[2018-05-19] MEDS: ATORVASTATIN 40 MG TABLET PO SCH (20:49)
[2018-05-19] MEDS: AMITRIPTYLINE 25 MG TABLET PO PRN (20:50)
[2018-05-20] MEDS: ALBUTEROL/IPRATROPIUM 3 ML NEB RESP TX SCH ×4 (00:15→18:58)
[2018-05-20] MEDS: methylPREDNISolone SOD SUC 40 MG/1 ML VIAL IV SCH ×3 (07:03→22:03)
[2018-05-20] MEDS: CEFTAROLINE 600 MG in SODIUM CHLORIDE 0.9% 100 ML IV SCH ×2 (08:19→21:42)
[2018-05-20] MEDS: INSULIN REGULAR 100 UNIT/ML SUBCUT SCH ×4 (08:19→21:45)
[2018-05-20] MEDS: NITROGLYCERIN DRIP 50 MG/250 ML BOTTLE IV SCH (08:47)
[2018-05-20 08:59] LABS: Calcium 8.6 MG/DL (8.5-10.1); Osmolality,Calculated 290.4 MOS/KG (273-304); Potassium 4.2 MMOL/L (3.5-5.1)
[2018-05-20] MEDS: MULTIVITAMIN (CENTRUM) TABLET PO SCH (11:07)
[2018-05-20] MEDS: SERTRALINE 25 MG TABLET PO SCH (11:07)
[2018-05-20] MEDS: FUROSEMIDE 20 MG TABLET PO SCH (11:07)
[2018-05-20] MEDS: DOCUSATE SODIUM 100 MG CAPSULE PO SCH ×2 (11:07→21:46)
[2018-05-20] MEDS: CLOPIDOGREL 75 MG TABLET PO SCH (11:07)
[2018-05-20] MEDS: NITROPRUSSIDE 100 MG in DEXTROSE 5% 250 ML IV SCH (11:08)
[2018-05-20] MEDS: PHENYLEPHRINE DRIP 40 MG/250 ML PREMIX IV SCH (11:08)
[2018-05-20] MEDS: PANTOPRAZOLE 40 MG TABLET PO SCH (11:08)
[2018-05-20] MEDS: ASCORBIC ACID 500 MG TABLET PO SCH ×2 (11:08→21:46)
[2018-05-20] MEDS: OMEGA 3 ACID ETHYL ESTERS 1 GM CAPSULE PO SCH (11:08)
[2018-05-20] MEDS: ASPIRIN EC 81 MG TABLET PO SCH (11:10)
[2018-05-20] MEDS: clonazePAM 0.5 MG TABLET PO SCH ×2 (11:16→21:46)
[2018-05-20] MEDS: GLIMEPIRIDE 2 MG TABLET PO SCH (12:07)
[2018-05-20] MEDS: BISOPROLOL 5 MG TABLET PO SCH ×2 (18:10→21:47)
[2018-05-20] MEDS: ATORVASTATIN 40 MG TABLET PO SCH (21:47)
[2018-05-21] MEDS: ALBUTEROL/IPRATROPIUM 3 ML NEB RESP TX SCH ×4 (00:35→19:01)
[2018-05-21 05:26] LABS: Basophils % 0.1 % (0.0-0.8); Eosinophils % 0.1 % (0.00-10.9); Hematocrit 29.5 VOL% (42.0-52.0); Hemoglobin 9.7 GM/DL (14.0-18.0); Immature Granulocytes % 0.4 %; Immature Granulocytes Absolute 0.03 #; Lymphocytes # 0.9 10*3/uL (1.4-4.0); Lymphocytes % 12.7 % (21.2-54.2); Mean Corpuscular HGB Conc 32.9 GM/DL (32-36); Mean Corpuscular Hemoglobin 32 PG (27-34); Mean Corpuscular Volume 95.8 FL (87-102); Mean Platelet Volume 10.2 FL (9.6-12.0); Monocytes # 0.6 10*3/uL (0.11-0.8); Neutrophils # 5.5 10*3/uL (1.4-7.4); Neutrophils % 78.7 % (38.7-73.9); Platelet Count 215 T/CUMM (130-400); Red Blood Count 3.08 MC/CUMM (3.8-5.5); Red Cell Distribution Width 11.9 % (9.3-17.3)
[2018-05-21 05:42] LABS: Calcium 8.6 MG/DL (8.5-10.1); Osmolality,Calculated 288.5 MOS/KG (273-304); Potassium 4.1 MMOL/L (3.5-5.1)
[2018-05-21] MEDS: methylPREDNISolone SOD SUC 40 MG/1 ML VIAL IV SCH ×3 (06:47→22:12)
[2018-05-21] MEDS: NITROGLYCERIN DRIP 50 MG/250 ML BOTTLE IV SCH (08:33)
[2018-05-21] MEDS: INSULIN REGULAR 100 UNIT/ML SUBCUT SCH ×4 (08:53→22:35)
[2018-05-21] MEDS: CEFTAROLINE 600 MG in SODIUM CHLORIDE 0.9% 100 ML IV SCH ×2 (08:53→22:09)
[2018-05-21] MEDS: OMEGA 3 ACID ETHYL ESTERS 1 GM CAPSULE PO SCH (08:54)
[2018-05-21] MEDS: DOCUSATE SODIUM 100 MG CAPSULE PO SCH ×2 (08:54→22:10)
[2018-05-21] MEDS: clonazePAM 0.5 MG TABLET PO SCH ×2 (08:54→22:11)
[2018-05-21] MEDS: FUROSEMIDE 20 MG TABLET PO SCH (08:54)
[2018-05-21] MEDS: ASPIRIN EC 81 MG TABLET PO SCH (08:54)
[2018-05-21] MEDS: GLIMEPIRIDE 2 MG TABLET PO SCH (08:54)
[2018-05-21] MEDS: BISOPROLOL 5 MG TABLET PO SCH ×2 (08:54→22:15)
[2018-05-21] MEDS: ASCORBIC ACID 500 MG TABLET PO SCH ×2 (08:54→22:10)
[2018-05-21] MEDS: PANTOPRAZOLE 40 MG TABLET PO SCH (08:54)
[2018-05-21] MEDS: SERTRALINE 25 MG TABLET PO SCH (08:54)
[2018-05-21] MEDS: CLOPIDOGREL 75 MG TABLET PO SCH (08:54)
[2018-05-21] MEDS: MULTIVITAMIN (CENTRUM) TABLET PO SCH (08:57)
[2018-05-21] MEDS: PHENYLEPHRINE DRIP 40 MG/250 ML PREMIX IV SCH (11:12)
[2018-05-21] MEDS: NITROPRUSSIDE 100 MG in DEXTROSE 5% 250 ML IV SCH (11:55)
[2018-05-21] MEDS: ATORVASTATIN 40 MG TABLET PO SCH (22:10)
[2018-05-22] MEDS: ALBUTEROL/IPRATROPIUM 3 ML NEB RESP TX SCH ×4 (00:25→19:22)
[2018-05-22 06:03] LABS: Calcium 8.6 MG/DL (8.5-10.1); Osmolality,Calculated 287.8 MOS/KG (273-304); Potassium 4.2 MMOL/L (3.5-5.1)
[2018-05-22] MEDS: methylPREDNISolone SOD SUC 40 MG/1 ML VIAL IV SCH ×2 (07:23→14:25)
[2018-05-22] MEDS: NITROGLYCERIN DRIP 50 MG/250 ML BOTTLE IV SCH (09:06)
[2018-05-22] MEDS: PANTOPRAZOLE 40 MG TABLET PO SCH (09:13)
[2018-05-22] MEDS: DOCUSATE SODIUM 100 MG CAPSULE PO SCH ×2 (09:13→22:04)
[2018-05-22] MEDS: OMEGA 3 ACID ETHYL ESTERS 1 GM CAPSULE PO SCH (09:13)
[2018-05-22] MEDS: MULTIVITAMIN (CENTRUM) TABLET PO SCH (09:13)
[2018-05-22] MEDS: CLOPIDOGREL 75 MG TABLET PO SCH (09:13)
[2018-05-22] MEDS: ASCORBIC ACID 500 MG TABLET PO SCH ×2 (09:13→22:03)
[2018-05-22] MEDS: FUROSEMIDE 20 MG TABLET PO SCH (09:13)
[2018-05-22] MEDS: ASPIRIN EC 81 MG TABLET PO SCH (09:13)
[2018-05-22] MEDS: clonazePAM 0.5 MG TABLET PO SCH ×2 (09:13→22:03)
[2018-05-22] MEDS: SERTRALINE 25 MG TABLET PO SCH (09:13)
[2018-05-22] MEDS: GLIMEPIRIDE 2 MG TABLET PO SCH (09:13)
[2018-05-22] MEDS: INSULIN REGULAR 100 UNIT/ML SUBCUT SCH ×4 (09:13→22:04)
[2018-05-22] MEDS: CEFTAROLINE 600 MG in SODIUM CHLORIDE 0.9% 100 ML IV SCH ×2 (09:14→22:14)
[2018-05-22] MEDS: BISOPROLOL 5 MG TABLET PO SCH ×2 (09:14→22:03)
[2018-05-22] MEDS: PHENYLEPHRINE DRIP 40 MG/250 ML PREMIX IV SCH (12:51)
[2018-05-22] MEDS: NITROPRUSSIDE 100 MG in DEXTROSE 5% 250 ML IV SCH (12:51)
[2018-05-22] MEDS: ATORVASTATIN 40 MG TABLET PO SCH (22:04)
[2018-05-23] MEDS: methylPREDNISolone SOD SUC 40 MG/1 ML VIAL IV SCH ×4 (00:42→23:07)
[2018-05-23] MEDS: ALBUTEROL/IPRATROPIUM 3 ML NEB RESP TX SCH ×4 (01:48→20:20)
[2018-05-23 05:51] LABS: Calcium 8.7 MG/DL (8.5-10.1); Osmolality,Calculated 289.5 MOS/KG (273-304); Potassium 4.2 MMOL/L (3.5-5.1)
[2018-05-23] MEDS: DOCUSATE SODIUM 100 MG CAPSULE PO SCH ×2 (08:54→20:33)
[2018-05-23] MEDS: BISOPROLOL 5 MG TABLET PO SCH ×2 (08:54→20:34)
[2018-05-23] MEDS: SERTRALINE 25 MG TABLET PO SCH (08:54)
[2018-05-23] MEDS: INSULIN REGULAR 100 UNIT/ML SUBCUT SCH ×4 (08:54→20:34)
[2018-05-23] MEDS: clonazePAM 0.5 MG TABLET PO SCH (08:54)
[2018-05-23] MEDS: GLIMEPIRIDE 2 MG TABLET PO SCH (08:54)
[2018-05-23] MEDS: FUROSEMIDE 20 MG TABLET PO SCH (08:54)
[2018-05-23] MEDS: CLOPIDOGREL 75 MG TABLET PO SCH (08:54)
[2018-05-23] MEDS: ASPIRIN EC 81 MG TABLET PO SCH (08:54)
[2018-05-23] MEDS: PANTOPRAZOLE 40 MG TABLET PO SCH (08:54)
[2018-05-23] MEDS: CEFTAROLINE 600 MG in SODIUM CHLORIDE 0.9% 100 ML IV SCH ×2 (09:50→20:38)
[2018-05-23] MEDS: ATORVASTATIN 40 MG TABLET PO SCH (20:34)
[2018-05-24] MEDS: ALBUTEROL/IPRATROPIUM 3 ML NEB RESP TX SCH ×4 (01:22→19:25)
[2018-05-24 05:23] LABS: Calcium 9.1 MG/DL (8.5-10.1); Potassium 4.4 MMOL/L (3.5-5.1)
[2018-05-24] MEDS: methylPREDNISolone SOD SUC 40 MG/1 ML VIAL IV SCH ×3 (06:14→22:58)
[2018-05-24] MEDS: CEFTAROLINE 600 MG in SODIUM CHLORIDE 0.9% 100 ML IV SCH (09:29)
[2018-05-24] MEDS: PANTOPRAZOLE 40 MG TABLET PO SCH (09:30)
[2018-05-24] MEDS: CLOPIDOGREL 75 MG TABLET PO SCH (09:31)
[2018-05-24] MEDS: ASPIRIN EC 81 MG TABLET PO SCH (09:31)
[2018-05-24] MEDS: DOCUSATE SODIUM 100 MG CAPSULE PO SCH ×2 (09:31→21:05)
[2018-05-24] MEDS: FUROSEMIDE 20 MG TABLET PO SCH (09:31)
[2018-05-24] MEDS: GLIMEPIRIDE 2 MG TABLET PO SCH (09:32)
[2018-05-24] MEDS: SERTRALINE 25 MG TABLET PO SCH (09:32)
[2018-05-24] MEDS: INSULIN REGULAR 100 UNIT/ML SUBCUT SCH ×4 (10:06→21:05)
[2018-05-24] MEDS: BISOPROLOL 5 MG TABLET PO SCH ×2 (10:21→21:05)
[2018-05-24] MEDS: ATORVASTATIN 40 MG TABLET PO SCH (21:05)
[2018-05-25] MEDS: ALBUTEROL/IPRATROPIUM 3 ML NEB RESP TX SCH ×2 (01:00→07:42)
[2018-05-25] MEDS: methylPREDNISolone SOD SUC 40 MG/1 ML VIAL IV SCH (06:20)
[2018-05-25 07:58] VITALS: BP 136/67
[2018-05-25] MEDS: INSULIN REGULAR 100 UNIT/ML SUBCUT SCH ×2 (08:46→11:35)
[2018-05-25] MEDS: GLIMEPIRIDE 2 MG TABLET PO SCH (08:48)
[2018-05-25] MEDS: DOCUSATE SODIUM 100 MG CAPSULE PO SCH (08:48)
[2018-05-25] MEDS: ASPIRIN EC 81 MG TABLET PO SCH (08:48)
[2018-05-25] MEDS: BISOPROLOL 5 MG TABLET PO SCH (08:49)
[2018-05-25] MEDS: CLOPIDOGREL 75 MG TABLET PO SCH (08:49)
[2018-05-25] MEDS: FUROSEMIDE 20 MG TABLET PO SCH (08:49)
[2018-05-25] MEDS: PANTOPRAZOLE 40 MG TABLET PO SCH (08:49)
[2018-05-25] MEDS: SERTRALINE 25 MG TABLET PO SCH (08:50)
== END 2018-05-25 11:35 | disposition home health service (06) | DRG 38 ==
LOC: EDUNIT# → EDBD → N.ED 11:44 → N.EDINP 14:53 → N.2E 17:21 → N.ICU 05-11 10:17 → N.3E 05-23 07:56
PROVIDERS: ADMIT Family Medicine; ATTEND Family Medicine

== ENCOUNTER 2018-08-14 12:31 | Inpatient (IN) ==
[2018-08-14] MEDS ORDERED: ACETAMINOPHEN 325 MG TABLET PO PRN (13:12)
[2018-08-14] MEDS ORDERED: NALOXONE 0.4 MG/ML VIAL IV PRN (13:12)
[2018-08-14] MEDS: HYDROmorphone 2 MG/1 ML VIAL IV PRN ×3 (14:15→22:31)
[2018-08-14 15:01] LABS: Basophils # 0.1 10*3/uL (0.0-0.2); Basophils % 0.8 % (0.0-0.8); Eosinophils # 0.3 10*3/uL (0.0-0.87); Eosinophils % 3.9 % (0.00-10.9); Hematocrit 36.5 VOL% (42.0-52.0); Hemoglobin 11.8 GM/DL (14.0-18.0); Immature Granulocytes % 0.3 %; Immature Granulocytes Absolute 0.02 #; Lymphocytes # 1.5 10*3/uL (1.4-4.0); Lymphocytes % 23.3 % (21.2-54.2); Mean Corpuscular HGB Conc 32.3 GM/DL (32-36); Mean Corpuscular Hemoglobin 31 PG (27-34); Mean Corpuscular Volume 95.1 FL (87-102); Mean Platelet Volume 9.7 FL (9.6-12.0); Monocytes # 0.4 10*3/uL (0.11-0.8); Monocytes % 5.6 % (1.7-12.7); Neutrophils # 4.2 10*3/uL (1.4-7.4); Neutrophils % 66.1 % (38.7-73.9); Platelet Count 188 T/CUMM (130-400); Red Blood Count 3.84 MC/CUMM (3.8-5.5); Red Cell Distribution Width 12.9 % (9.3-17.3); White Blood Count 6.4 T/CUMM (4-12)
[2018-08-14 15:25] LABS: Alanine Aminotransferase 18 U/L (16-61); Albumin 3.9 G/DL (3.4-5.0); Alkaline Phosphatase 70 U/L (45-117); Aspartate Amino Transferase 13 U/L (0-37); Bilirubin,Total < 0.39 MG/DL (0.2-1.0); Blood Urea Nitrogen 38 MG/DL (7-18); Glucose 231 MG/DL (74-106); Osmolality,Calculated 283.2 MOS/KG (273-304); Potassium 4.7 MMOL/L (3.5-5.1); Sodium 134 MMOL/L (136-145); Total Protein 7.9 G/DL (6.4-8.3)
[2018-08-14] MEDS: ENOXAPARIN 30 MG/0.3 ML SYRINGE SUBCUT SCH (16:51)
[2018-08-14] MEDS: SODIUM CHLORIDE 0.45% 1,000 ML IV SCH (17:12)
[2018-08-14] MEDS: hydrALAZINE 20 MG/1 ML VIAL IV PRN (17:33)
[2018-08-14] MEDS: ONDANSETRON 4 MG/2 ML VIAL IV PRN (18:11)
[2018-08-14] MEDS: SULFAMETHOX/TRIMETHOPRIM 800-160 MG TABLET PO SCH (20:17)
[2018-08-14] MEDS: DOCUSATE SODIUM 100 MG CAPSULE PO SCH (20:17)
[2018-08-14] MEDS: SIMVASTATIN 40 MG TABLET PO SCH (20:17)
[2018-08-14] MEDS ORDERED: METHENAMINE HIPPURATE 1 GM TABLET PO SCH (21:00)
[2018-08-15] MEDS: ONDANSETRON 4 MG/2 ML VIAL IV PRN ×3 (00:41→11:55)
[2018-08-15] MEDS: HYDROmorphone 2 MG/1 ML VIAL IV PRN ×3 (02:40→11:53)
[2018-08-15] MEDS: hydrALAZINE 20 MG/1 ML VIAL IV PRN (05:24)
[2018-08-15] MEDS: DOCUSATE SODIUM 100 MG CAPSULE PO SCH ×2 (08:27→20:01)
[2018-08-15] MEDS: SULFAMETHOX/TRIMETHOPRIM 800-160 MG TABLET PO SCH ×2 (08:27→20:00)
[2018-08-15] MEDS: CARVEDILOL 3.125 MG TABLET PO SCH ×2 (08:27→17:43)
[2018-08-15] MEDS: OMEGA 3 ACID ETHYL ESTERS 1 GM CAPSULE PO SCH (08:27)
[2018-08-15] MEDS: ASPIRIN EC 81 MG TABLET PO SCH (08:27)
[2018-08-15] MEDS: MULTIVITAMIN (CENTRUM) TABLET PO SCH (08:27)
[2018-08-15] MEDS: FUROSEMIDE 20 MG TABLET PO SCH (08:28)
[2018-08-15] MEDS: PANTOPRAZOLE 40 MG TABLET PO SCH (08:28)
[2018-08-15] MEDS: GLIMEPIRIDE 2 MG TABLET PO SCH (08:28)
[2018-08-15] MEDS: SERTRALINE 25 MG TABLET PO SCH (08:28)
[2018-08-15] MEDS: amLODIPine 5 MG TABLET PO SCH (08:28)
[2018-08-15] MEDS ORDERED: CLOPIDOGREL 75 MG TABLET PO SCH (09:00)
[2018-08-15] MEDS: SODIUM CHLORIDE 0.45% 1,000 ML IV SCH (12:00)
[2018-08-15] MEDS ORDERED: PROMETHAZINE 25 MG/1 ML VIAL IM PRN (12:53)
[2018-08-15] MEDS: ENOXAPARIN 30 MG/0.3 ML SYRINGE SUBCUT SCH (14:49)
[2018-08-15 17:39] LABS: Folate 18.7 NG/ML (5.4-24.0)
[2018-08-15] MEDS: SIMVASTATIN 40 MG TABLET PO SCH (20:00)
[2018-08-16] MEDS: SODIUM CHLORIDE 0.45% 1,000 ML IV SCH (05:11)
[2018-08-16] MEDS: ONDANSETRON 4 MG/2 ML VIAL IV PRN (06:01)
[2018-08-16] MEDS: CARVEDILOL 6.25 MG TABLET PO SCH ×2 (10:09→20:35)
[2018-08-16] MEDS: amLODIPine 5 MG TABLET PO SCH (10:09)
[2018-08-16] MEDS: SERTRALINE 25 MG TABLET PO SCH (10:10)
[2018-08-16] MEDS: PANTOPRAZOLE 40 MG TABLET PO SCH (10:11)
[2018-08-16] MEDS: FUROSEMIDE 20 MG TABLET PO SCH (10:11)
[2018-08-16] MEDS: OMEGA 3 ACID ETHYL ESTERS 1 GM CAPSULE PO SCH (10:11)
[2018-08-16] MEDS: MULTIVITAMIN (CENTRUM) TABLET PO SCH (10:11)
[2018-08-16] MEDS: DOCUSATE SODIUM 100 MG CAPSULE PO SCH ×2 (10:11→20:35)
[2018-08-16] MEDS: SULFAMETHOX/TRIMETHOPRIM 800-160 MG TABLET PO SCH ×2 (10:12→20:34)
[2018-08-16] MEDS: ASPIRIN EC 81 MG TABLET PO SCH (10:12)
[2018-08-16] MEDS: GLIMEPIRIDE 2 MG TABLET PO SCH (10:12)
[2018-08-16] MEDS: CARVEDILOL 3.125 MG TABLET PO SCH (10:19)
[2018-08-16 12:09] LABS: Calcium 9.1 MG/DL (8.5-10.1); Osmolality,Calculated 284.1 MOS/KG (273-304); Potassium 4.8 MMOL/L (3.5-5.1)
[2018-08-16] MEDS: ENOXAPARIN 30 MG/0.3 ML SYRINGE SUBCUT SCH (14:20)
[2018-08-16] MEDS: SODIUM CHLORIDE 0.9% 1,000 ML IV SCH (18:34)
[2018-08-16] MEDS: SIMVASTATIN 40 MG TABLET PO SCH (20:34)
[2018-08-17] MEDS: HYDROmorphone 2 MG/1 ML VIAL IV PRN ×2 (04:01→10:57)
[2018-08-17 06:04] LABS: Calcium 8.5 MG/DL (8.5-10.1); Osmolality,Calculated 279.1 MOS/KG (273-304); Potassium 3.9 MMOL/L (3.5-5.1)
[2018-08-17] MEDS: SODIUM CHLORIDE 0.9% 1,000 ML IV SCH ×2 (06:23→19:58)
[2018-08-17] MEDS: GLIMEPIRIDE 2 MG TABLET PO SCH (08:24)
[2018-08-17] MEDS: PANTOPRAZOLE 40 MG TABLET PO SCH (08:24)
[2018-08-17] MEDS: SULFAMETHOX/TRIMETHOPRIM 800-160 MG TABLET PO SCH ×2 (08:24→20:01)
[2018-08-17] MEDS: CARVEDILOL 6.25 MG TABLET PO SCH ×2 (08:24→20:01)
[2018-08-17] MEDS: OMEGA 3 ACID ETHYL ESTERS 1 GM CAPSULE PO SCH (08:24)
[2018-08-17] MEDS: SERTRALINE 25 MG TABLET PO SCH (08:24)
[2018-08-17] MEDS: DOCUSATE SODIUM 100 MG CAPSULE PO SCH ×2 (08:24→20:01)
[2018-08-17] MEDS: MULTIVITAMIN (CENTRUM) TABLET PO SCH (08:24)
[2018-08-17] MEDS: FUROSEMIDE 20 MG TABLET PO SCH (08:24)
[2018-08-17] MEDS: ASPIRIN EC 81 MG TABLET PO SCH (08:24)
[2018-08-17] MEDS: amLODIPine 5 MG TABLET PO SCH (08:24)
[2018-08-17] MEDS: BISACODYL 5 MG TABLET PO PRN (10:55)
[2018-08-17] MEDS: ENOXAPARIN 30 MG/0.3 ML SYRINGE SUBCUT SCH (15:45)
[2018-08-17] MEDS: SIMVASTATIN 40 MG TABLET PO SCH (20:01)
[2018-08-18] MEDS: ONDANSETRON 4 MG/2 ML VIAL IV PRN (01:45)
[2018-08-18] MEDS: BISACODYL 5 MG TABLET PO PRN (04:37)
[2018-08-18] MEDS: GLIMEPIRIDE 2 MG TABLET PO SCH (07:48)
[2018-08-18] MEDS: ASPIRIN EC 81 MG TABLET PO SCH ×2 (08:04→08:14)
[2018-08-18] MEDS: FUROSEMIDE 20 MG TABLET PO SCH (08:04)
[2018-08-18] MEDS: PANTOPRAZOLE 40 MG TABLET PO SCH ×2 (08:04→08:15)
[2018-08-18] MEDS: amLODIPine 5 MG TABLET PO SCH (08:04)
[2018-08-18] MEDS: CARVEDILOL 6.25 MG TABLET PO SCH ×2 (08:05→20:43)
[2018-08-18] MEDS: OMEGA 3 ACID ETHYL ESTERS 1 GM CAPSULE PO SCH (08:05)
[2018-08-18] MEDS: SULFAMETHOX/TRIMETHOPRIM 800-160 MG TABLET PO SCH ×2 (08:05→20:43)
[2018-08-18] MEDS: SERTRALINE 25 MG TABLET PO SCH (08:05)
[2018-08-18] MEDS: MULTIVITAMIN (CENTRUM) TABLET PO SCH (08:06)
[2018-08-18] MEDS: DOCUSATE SODIUM 100 MG CAPSULE PO SCH ×2 (08:11→20:43)
[2018-08-18] MEDS: SODIUM CHLORIDE 0.9% 1,000 ML IV SCH (11:38)
[2018-08-18] MEDS: ENOXAPARIN 30 MG/0.3 ML SYRINGE SUBCUT SCH (13:50)
[2018-08-18] MEDS: SIMVASTATIN 40 MG TABLET PO SCH (20:43)
[2018-08-19] MEDS: SODIUM CHLORIDE 0.9% 1,000 ML IV SCH ×2 (01:06→13:06)
[2018-08-19] MEDS: GLIMEPIRIDE 2 MG TABLET PO SCH (08:15)
[2018-08-19] MEDS: SERTRALINE 25 MG TABLET PO SCH (08:15)
[2018-08-19] MEDS: BISACODYL 5 MG TABLET PO PRN (08:15)
[2018-08-19] MEDS: FUROSEMIDE 20 MG TABLET PO SCH (08:15)
[2018-08-19] MEDS: PANTOPRAZOLE 40 MG TABLET PO SCH (08:15)
[2018-08-19] MEDS: SULFAMETHOX/TRIMETHOPRIM 800-160 MG TABLET PO SCH ×2 (08:15→23:01)
[2018-08-19] MEDS: amLODIPine 5 MG TABLET PO SCH (08:15)
[2018-08-19] MEDS: ASPIRIN EC 81 MG TABLET PO SCH (08:16)
[2018-08-19] MEDS: DOCUSATE SODIUM 100 MG CAPSULE PO SCH ×2 (08:16→20:47)
[2018-08-19] MEDS: MULTIVITAMIN (CENTRUM) TABLET PO SCH (08:16)
[2018-08-19] MEDS: OMEGA 3 ACID ETHYL ESTERS 1 GM CAPSULE PO SCH (08:16)
[2018-08-19] MEDS: CARVEDILOL 6.25 MG TABLET PO SCH ×2 (08:16→20:47)
[2018-08-19] MEDS ORDERED: BUPIVACAINE 0.5% 50 ML VIAL MISC INJ ONE (12:32)
[2018-08-19] MEDS ORDERED: TRIAMCINOLONE ACETONIDE 40 MG/1 ML VIAL INTRAARTIC ONE (12:34)
[2018-08-19] MEDS: ENOXAPARIN 30 MG/0.3 ML SYRINGE SUBCUT SCH ×2 (15:26→18:05)
[2018-08-19] MEDS: SIMVASTATIN 40 MG TABLET PO SCH (20:47)
[2018-08-20 05:16] LABS: Calcium 8.8 MG/DL (8.5-10.1); Osmolality,Calculated 280.5 MOS/KG (273-304); Potassium 4.1 MMOL/L (3.5-5.1)
[2018-08-20] MEDS: GLIMEPIRIDE 2 MG TABLET PO SCH (08:34)
[2018-08-20] MEDS: CARVEDILOL 6.25 MG TABLET PO SCH ×2 (08:35→21:23)
[2018-08-20] MEDS: PANTOPRAZOLE 40 MG TABLET PO SCH (08:35)
[2018-08-20] MEDS: SULFAMETHOX/TRIMETHOPRIM 800-160 MG TABLET PO SCH ×2 (08:36→21:23)
[2018-08-20] MEDS: ASPIRIN EC 81 MG TABLET PO SCH (08:36)
[2018-08-20] MEDS: DOCUSATE SODIUM 100 MG CAPSULE PO SCH ×2 (08:36→21:23)
[2018-08-20] MEDS: SERTRALINE 25 MG TABLET PO SCH (08:36)
[2018-08-20] MEDS: FUROSEMIDE 20 MG TABLET PO SCH (08:39)
[2018-08-20] MEDS: amLODIPine 5 MG TABLET PO SCH (08:39)
[2018-08-20] MEDS: MULTIVITAMIN (CENTRUM) TABLET PO SCH (08:40)
[2018-08-20] MEDS: OMEGA 3 ACID ETHYL ESTERS 1 GM CAPSULE PO SCH (08:40)
[2018-08-20] MEDS: SODIUM CHLORIDE 0.9% 1,000 ML IV SCH ×2 (08:41→15:14)
[2018-08-20] MEDS: ENOXAPARIN 30 MG/0.3 ML SYRINGE SUBCUT SCH (13:32)
[2018-08-20] MEDS ORDERED: POLYVINYL ALCOHOL 1.4% OPH SOLN 15 ML BOTTLE BOTH EYES PRN (14:22)
[2018-08-20] MEDS: SIMVASTATIN 40 MG TABLET PO SCH (21:23)
[2018-08-21] MEDS: SODIUM CHLORIDE 0.9% 1,000 ML IV SCH ×2 (04:29→20:42)
[2018-08-21] MEDS: SERTRALINE 25 MG TABLET PO SCH (08:32)
[2018-08-21] MEDS: CARVEDILOL 6.25 MG TABLET PO SCH ×2 (08:32→20:39)
[2018-08-21] MEDS: hydrALAZINE 20 MG/1 ML VIAL IV PRN (08:33)
[2018-08-21] MEDS: amLODIPine 5 MG TABLET PO SCH (08:33)
[2018-08-21] MEDS: FUROSEMIDE 20 MG TABLET PO SCH (08:33)
[2018-08-21] MEDS: OMEGA 3 ACID ETHYL ESTERS 1 GM CAPSULE PO SCH (08:38)
[2018-08-21] MEDS: PANTOPRAZOLE 40 MG TABLET PO SCH (08:38)
[2018-08-21] MEDS: GLIMEPIRIDE 2 MG TABLET PO SCH (08:38)
[2018-08-21] MEDS: MULTIVITAMIN (CENTRUM) TABLET PO SCH (08:38)
[2018-08-21] MEDS: ASPIRIN EC 81 MG TABLET PO SCH (08:38)
[2018-08-21] MEDS: DOCUSATE SODIUM 100 MG CAPSULE PO SCH ×2 (08:38→20:39)
[2018-08-21 10:32] LABS: Glucose,CSF 67 MG/DL (40-70)
[2018-08-21 10:37] LABS: Appearance,CSF Clear
[2018-08-21 10:38] LABS: Lymphocytes,CSF 60 %; Monocytes,CSF 27 %; Neutrophils,CSF 13 %; Red Blood Cell,CSF < 1 C/CUMM; White Blood Cell,CSF 9 C/CUMM
[2018-08-21] MEDS: MEPERIDINE 25 MG/1 ML VIAL IV PRN ×2 (13:30→20:38)
[2018-08-21] MEDS: ENOXAPARIN 30 MG/0.3 ML SYRINGE SUBCUT SCH (15:20)
[2018-08-21] MEDS: PROMETHAZINE 25 MG/1 ML VIAL IM SCH (17:41)
[2018-08-21] MEDS: methylPREDNISolone SOD SUC 40 MG/1 ML VIAL IV SCH (17:42)
[2018-08-21] MEDS: ACYCLOVIR INJ 500 MG in SODIUM CHLORIDE 0.9% 100 ML IV SCH (17:42)
[2018-08-21] MEDS: VALPROIC ACID INJ 500 MG in SODIUM CHLORIDE 0.9% 100 ML IV SCH (18:55)
[2018-08-21] MEDS: SIMVASTATIN 40 MG TABLET PO SCH (20:39)
[2018-08-22] MEDS: PROMETHAZINE 25 MG/1 ML VIAL IM SCH ×4 (00:52→17:13)
[2018-08-22] MEDS: methylPREDNISolone SOD SUC 40 MG/1 ML VIAL IV SCH ×3 (00:54→17:13)
[2018-08-22] MEDS: VALPROIC ACID INJ 500 MG in SODIUM CHLORIDE 0.9% 100 ML IV SCH ×3 (00:56→18:40)
[2018-08-22] MEDS: ACYCLOVIR INJ 500 MG in SODIUM CHLORIDE 0.9% 100 ML IV SCH ×2 (05:09→17:13)
[2018-08-22 06:07] LABS: Basophils % 0.3 % (0.0-0.8); Hematocrit 33.2 VOL% (42.0-52.0); Hemoglobin 10.7 GM/DL (14.0-18.0); Immature Granulocytes % 0.3 %; Immature Granulocytes Absolute 0.01 #; Lymphocytes # 0.6 10*3/uL (1.4-4.0); Lymphocytes % 15.1 % (21.2-54.2); Mean Corpuscular HGB Conc 32.2 GM/DL (32-36); Mean Corpuscular Hemoglobin 31 PG (27-34); Mean Corpuscular Volume 96.2 FL (87-102); Mean Platelet Volume 9.9 FL (9.6-12.0); Neutrophils # 3.3 10*3/uL (1.4-7.4); Neutrophils % 83.3 % (38.7-73.9); Platelet Count 178 T/CUMM (130-400); Red Blood Count 3.45 MC/CUMM (3.8-5.5); Red Cell Distribution Width 12.9 % (9.3-17.3); White Blood Count 3.9 T/CUMM (4-12)
[2018-08-22] MEDS: SODIUM CHLORIDE 0.9% 1,000 ML IV SCH (06:59)
[2018-08-22] MEDS ORDERED: ASPIRIN CHEW 81 MG TABLET PO ONE (09:36)
[2018-08-22] MEDS: NITROGLYCERIN SL 0.4 MG TABLET SL PRN ×3 (09:39→09:50)
[2018-08-22] MEDS: CARVEDILOL 6.25 MG TABLET PO SCH (09:55)
[2018-08-22] MEDS: GLIMEPIRIDE 2 MG TABLET PO SCH (09:55)
[2018-08-22] MEDS: ASPIRIN EC 81 MG TABLET PO SCH (09:55)
[2018-08-22] MEDS: PANTOPRAZOLE 40 MG TABLET PO SCH (09:55)
[2018-08-22] MEDS: MULTIVITAMIN (CENTRUM) TABLET PO SCH (09:56)
[2018-08-22] MEDS: FUROSEMIDE 20 MG TABLET PO SCH (09:56)
[2018-08-22] MEDS: amLODIPine 5 MG TABLET PO SCH (09:56)
[2018-08-22] MEDS: SERTRALINE 25 MG TABLET PO SCH (09:56)
[2018-08-22] MEDS: OMEGA 3 ACID ETHYL ESTERS 1 GM CAPSULE PO SCH (09:57)
[2018-08-22] MEDS: DOCUSATE SODIUM 100 MG CAPSULE PO SCH ×2 (09:57→21:43)
[2018-08-22 11:27] LABS: VDRL Spinal Fluid Negative (Negative)
[2018-08-22] MEDS: ENOXAPARIN 30 MG/0.3 ML SYRINGE SUBCUT SCH (14:28)
[2018-08-22] MEDS ORDERED: CARVEDILOL 12.5 MG TABLET PO SCH (17:00)
[2018-08-22] MEDS ORDERED: ASPIRIN 325 MG TABLET ONE (19:52)
[2018-08-22 20:42] LABS: Troponin I 0.384 NG/ML (0.00-0.045)
[2018-08-22] MEDS: SIMVASTATIN 40 MG TABLET PO SCH (21:43)
[2018-08-23] MEDS: methylPREDNISolone SOD SUC 40 MG/1 ML VIAL IV SCH ×3 (02:28→17:46)
[2018-08-23] MEDS: VALPROIC ACID INJ 500 MG in SODIUM CHLORIDE 0.9% 100 ML IV SCH ×3 (02:31→17:45)
[2018-08-23] MEDS: PROMETHAZINE 25 MG/1 ML VIAL IM SCH ×3 (02:32→17:46)
[2018-08-23] MEDS: ACYCLOVIR INJ 500 MG in SODIUM CHLORIDE 0.9% 100 ML IV SCH ×2 (05:42→18:59)
[2018-08-23] MEDS: hydrALAZINE 20 MG/1 ML VIAL IV PRN (06:03)
[2018-08-23] MEDS: HYDROmorphone 2 MG/1 ML VIAL IV PRN (06:05)
[2018-08-23] MEDS: NITROGLYCERIN SL 0.4 MG TABLET SL PRN ×3 (06:11→06:21)
[2018-08-23] MEDS ORDERED: BETAXOLOL 10 MG PO SCH (08:00)
[2018-08-23 08:24] LABS: Troponin I 0.847 NG/ML (0.00-0.045)
[2018-08-23 08:27] LABS: Basophils % 0.1 % (0.0-0.8); Hematocrit 34.2 VOL% (42.0-52.0); Immature Granulocytes % 0.7 %; Immature Granulocytes Absolute 0.08 #; Lymphocytes # 0.9 10*3/uL (1.4-4.0); Lymphocytes % 8.2 % (21.2-54.2); Mean Corpuscular HGB Conc 32.2 GM/DL (32-36); Mean Corpuscular Hemoglobin 31 PG (27-34); Mean Corpuscular Volume 97.4 FL (87-102); Mean Platelet Volume 9.8 FL (9.6-12.0); Monocytes # 0.3 10*3/uL (0.11-0.8); Monocytes % 2.8 % (1.7-12.7); Neutrophils # 9.8 10*3/uL (1.4-7.4); Neutrophils % 88.2 % (38.7-73.9); Platelet Count 240 T/CUMM (130-400); Red Blood Count 3.51 MC/CUMM (3.8-5.5); Red Cell Distribution Width 13.2 % (9.3-17.3); White Blood Count 11.1 T/CUMM (4-12)
[2018-08-23 08:34] LABS: Calcium 9.2 MG/DL (8.5-10.1); Osmolality,Calculated 286.8 MOS/KG (273-304); Potassium 4.2 MMOL/L (3.5-5.1)
[2018-08-23] MEDS: ASPIRIN EC 81 MG TABLET PO SCH (08:58)
[2018-08-23] MEDS: MULTIVITAMIN (CENTRUM) TABLET PO SCH (08:58)
[2018-08-23] MEDS: DOCUSATE SODIUM 100 MG CAPSULE PO SCH ×2 (08:58→21:38)
[2018-08-23] MEDS: SERTRALINE 25 MG TABLET PO SCH (08:58)
[2018-08-23] MEDS: NITROGLYCERIN 2% OINT 1 INCH/GM PACK TOP SCH ×3 (08:58→17:47)
[2018-08-23] MEDS: PANTOPRAZOLE 40 MG TABLET PO SCH (08:58)
[2018-08-23] MEDS: FUROSEMIDE 20 MG TABLET PO SCH (08:58)
[2018-08-23] MEDS: OMEGA 3 ACID ETHYL ESTERS 1 GM CAPSULE PO SCH (08:58)
[2018-08-23] MEDS: amLODIPine 5 MG TABLET PO SCH (09:10)
[2018-08-23] MEDS: BISOPROLOL 5 MG TABLET PO SCH ×3 (09:16→17:47)
[2018-08-23] MEDS: GLIMEPIRIDE 2 MG TABLET PO SCH (10:53)
[2018-08-23] MEDS ORDERED: BISOPROLOL 5 MG TABLET PO SCH (12:00)
[2018-08-23 13:41] LABS: CKMB % 1.9 %
[2018-08-23 13:45] LABS: Troponin I 6.54 NG/ML (0.00-0.045)
[2018-08-23] MEDS: hydrALAZINE 25 MG TABLET PO SCH ×2 (15:15→21:41)
[2018-08-23] MEDS: ENOXAPARIN 30 MG/0.3 ML SYRINGE SUBCUT SCH (15:15)
[2018-08-23] MEDS: SODIUM CHLORIDE 0.9% 1,000 ML IV SCH ×2 (15:16)
[2018-08-23] MEDS: SIMVASTATIN 40 MG TABLET PO SCH (21:38)
[2018-08-24] MEDS: BISOPROLOL 5 MG TABLET PO SCH ×5 (00:50→21:39)
[2018-08-24] MEDS: NITROGLYCERIN 2% OINT 1 INCH/GM PACK TOP SCH ×2 (00:50→06:51)
[2018-08-24] MEDS: VALPROIC ACID INJ 500 MG in SODIUM CHLORIDE 0.9% 100 ML IV SCH ×2 (01:50→10:26)
[2018-08-24] MEDS: PROMETHAZINE 25 MG/1 ML VIAL IM SCH ×2 (01:51→09:56)
[2018-08-24] MEDS: methylPREDNISolone SOD SUC 40 MG/1 ML VIAL IV SCH ×2 (01:51→09:51)
[2018-08-24] MEDS: ACYCLOVIR INJ 500 MG in SODIUM CHLORIDE 0.9% 100 ML IV SCH (05:37)
[2018-08-24] MEDS: amLODIPine 5 MG TABLET PO SCH (09:54)
[2018-08-24] MEDS: hydrALAZINE 25 MG TABLET PO SCH ×3 (09:54→21:39)
[2018-08-24] MEDS: MULTIVITAMIN (CENTRUM) TABLET PO SCH (09:54)
[2018-08-24] MEDS: GLIMEPIRIDE 2 MG TABLET PO SCH (09:54)
[2018-08-24] MEDS: PANTOPRAZOLE 40 MG TABLET PO SCH (09:54)
[2018-08-24] MEDS: OMEGA 3 ACID ETHYL ESTERS 1 GM CAPSULE PO SCH (09:54)
[2018-08-24] MEDS: DOCUSATE SODIUM 100 MG CAPSULE PO SCH ×2 (09:54→21:40)
[2018-08-24] MEDS: ASPIRIN EC 81 MG TABLET PO SCH (09:55)
[2018-08-24] MEDS: SERTRALINE 25 MG TABLET PO SCH (09:55)
[2018-08-24] MEDS: FUROSEMIDE 20 MG TABLET PO SCH (09:55)
[2018-08-24 10:37] LABS: Calcium 9.1 MG/DL (8.5-10.1); Osmolality,Calculated 291.8 MOS/KG (273-304); Potassium 4.2 MMOL/L (3.5-5.1)
[2018-08-24 10:43] LABS: Troponin I 5.17 NG/ML (0.00-0.045)
[2018-08-24] MEDS: ISOSORBIDE MONONITRATE 30 MG TABLET PO SCH (12:30)
[2018-08-24 13:40] LABS: West Nile Virus Ab, IgG, CSF Negative (Negative); West Nile Virus Ab, IgM, CSF Negative (Negative)
[2018-08-24] MEDS: ENOXAPARIN 30 MG/0.3 ML SYRINGE SUBCUT SCH (16:05)
[2018-08-24] MEDS: SIMVASTATIN 40 MG TABLET PO SCH (21:39)
[2018-08-25 04:21] LABS: Calcium 8.9 MG/DL (8.5-10.1); Osmolality,Calculated 289.5 MOS/KG (273-304); Potassium 3.8 MMOL/L (3.5-5.1)
[2018-08-25] MEDS: DOCUSATE SODIUM 100 MG CAPSULE PO SCH ×2 (09:55→22:00)
[2018-08-25] MEDS: BISOPROLOL 5 MG TABLET PO SCH ×2 (09:55→21:58)
[2018-08-25] MEDS: ASPIRIN EC 81 MG TABLET PO SCH (09:55)
[2018-08-25] MEDS: SERTRALINE 25 MG TABLET PO SCH (09:55)
[2018-08-25] MEDS: FUROSEMIDE 20 MG TABLET PO SCH (09:55)
[2018-08-25] MEDS: predniSONE 20 MG TABLET PO SCH (09:55)
[2018-08-25] MEDS: GLIMEPIRIDE 2 MG TABLET PO SCH (09:55)
[2018-08-25] MEDS: PANTOPRAZOLE 40 MG TABLET PO SCH (09:55)
[2018-08-25] MEDS: ISOSORBIDE MONONITRATE 30 MG TABLET PO SCH (09:55)
[2018-08-25] MEDS: amLODIPine 5 MG TABLET PO SCH (09:56)
[2018-08-25] MEDS: hydrALAZINE 25 MG TABLET PO SCH ×3 (09:56→21:58)
[2018-08-25] MEDS: MULTIVITAMIN (CENTRUM) TABLET PO SCH (09:59)
[2018-08-25] MEDS: OMEGA 3 ACID ETHYL ESTERS 1 GM CAPSULE PO SCH (10:00)
[2018-08-25] MEDS: ENOXAPARIN 30 MG/0.3 ML SYRINGE SUBCUT SCH (14:54)
[2018-08-25] MEDS: SIMVASTATIN 40 MG TABLET PO SCH (21:58)
[2018-08-26 05:04] LABS: Calcium 8.5 MG/DL (8.5-10.1); Osmolality,Calculated 290.5 MOS/KG (273-304); Potassium 3.7 MMOL/L (3.5-5.1)
[2018-08-26] MEDS: DOCUSATE SODIUM 100 MG CAPSULE PO SCH ×2 (09:15→21:09)
[2018-08-26] MEDS: BISOPROLOL 5 MG TABLET PO SCH ×2 (09:15→21:08)
[2018-08-26] MEDS: SERTRALINE 25 MG TABLET PO SCH (09:15)
[2018-08-26] MEDS: GLIMEPIRIDE 2 MG TABLET PO SCH (09:15)
[2018-08-26] MEDS: predniSONE 20 MG TABLET PO SCH (09:16)
[2018-08-26] MEDS: ISOSORBIDE MONONITRATE 30 MG TABLET PO SCH (09:16)
[2018-08-26] MEDS: ASPIRIN EC 81 MG TABLET PO SCH (09:16)
[2018-08-26] MEDS: amLODIPine 5 MG TABLET PO SCH (09:16)
[2018-08-26] MEDS: PANTOPRAZOLE 40 MG TABLET PO SCH (09:16)
[2018-08-26] MEDS: FUROSEMIDE 20 MG TABLET PO SCH (09:16)
[2018-08-26] MEDS: hydrALAZINE 25 MG TABLET PO SCH ×3 (09:16→21:09)
[2018-08-26] MEDS: MULTIVITAMIN (CENTRUM) TABLET PO SCH (09:17)
[2018-08-26] MEDS: OMEGA 3 ACID ETHYL ESTERS 1 GM CAPSULE PO SCH (09:17)
[2018-08-26] MEDS ORDERED: ENOXAPARIN 40 MG/0.4 ML SYRINGE SUBCUT SCH (14:00)
[2018-08-26] MEDS: SIMVASTATIN 40 MG TABLET PO SCH (21:09)
[2018-08-27 05:30] LABS: Calcium 8.7 MG/DL (8.5-10.1); Osmolality,Calculated 292.5 MOS/KG (273-304); Potassium 3.9 MMOL/L (3.5-5.1)
[2018-08-27 07:53] VITALS: BP 161/83
[2018-08-27] MEDS: GLIMEPIRIDE 2 MG TABLET PO SCH (07:58)
[2018-08-27] MEDS ORDERED: CLOPIDOGREL 75 MG TABLET PO SCH (09:00)
[2018-08-27] MEDS: predniSONE 20 MG TABLET PO SCH (09:54)
[2018-08-27] MEDS: PANTOPRAZOLE 40 MG TABLET PO SCH (09:54)
[2018-08-27] MEDS: DOCUSATE SODIUM 100 MG CAPSULE PO SCH (09:54)
[2018-08-27] MEDS: hydrALAZINE 25 MG TABLET PO SCH (09:54)
[2018-08-27] MEDS: SERTRALINE 25 MG TABLET PO SCH (09:54)
[2018-08-27] MEDS: ASPIRIN EC 81 MG TABLET PO SCH (09:54)
[2018-08-27] MEDS: FUROSEMIDE 20 MG TABLET PO SCH (09:55)
[2018-08-27] MEDS: ISOSORBIDE MONONITRATE 30 MG TABLET PO SCH (09:55)
[2018-08-27] MEDS: MULTIVITAMIN (CENTRUM) TABLET PO SCH (10:48)
[2018-08-27] MEDS: BISOPROLOL 5 MG TABLET PO SCH (10:49)
[2018-08-27] MEDS: amLODIPine 5 MG TABLET PO SCH (10:49)
[2018-08-27] MEDS: OMEGA 3 ACID ETHYL ESTERS 1 GM CAPSULE PO SCH (10:49)
== END 2018-08-27 11:14 | disposition home or self-care (01) | DRG 102 ==
LOC: N.5E → OBSVTOIN 13:12 → N.TELES 08-22 20:25
PROVIDERS: ADMIT Family Medicine; ATTEND Family Medicine

== ENCOUNTER 2018-09-11 11:05 | Inpatient (IN) ==
[2018-09-11 12:02] LABS: Basophils % 0.4 % (0.0-0.8); Eosinophils # 0.2 10*3/uL (0.0-0.87); Eosinophils % 2.3 % (0.00-10.9); Hemoglobin 11.5 GM/DL (14.0-18.0); Immature Granulocytes % 0.6 %; Immature Granulocytes Absolute 0.05 #; Lymphocytes # 1.1 10*3/uL (1.4-4.0); Lymphocytes % 12.5 % (21.2-54.2); Mean Corpuscular HGB Conc 31.9 GM/DL (32-36); Mean Corpuscular Volume 98.4 FL (87-102); Monocytes % 6.4 % (1.7-12.7); Neutrophils % 77.8 % (38.7-73.9); Platelet Count 147 T/CUMM (130-400); Red Blood Count 3.66 MC/CUMM (3.8-5.5); Red Cell Distribution Width 13.4 % (9.3-17.3)
[2018-09-11 12:22] LABS: Alanine Aminotransferase 19 U/L (16-61); Albumin 3.7 G/DL (3.4-5.0); Alkaline Phosphatase 55 U/L (45-117); Aspartate Amino Transferase 12 U/L (0-37); Bilirubin,Total < 0.39 MG/DL (0.2-1.0); Blood Urea Nitrogen 46 MG/DL (7-18); Calcium 9.1 MG/DL (8.5-10.1); Glucose 229 MG/DL (74-106); Total Protein 7.1 G/DL (6.4-8.3)
[2018-09-11] MEDS ORDERED: ONDANSETRON 4 MG/2 ML VIAL IV PRN (14:32)
[2018-09-11] MEDS ORDERED: MORPHINE 4 MG/1 ML VIAL IV PRN (14:32)
[2018-09-11] MEDS ORDERED: MEPERIDINE 50 MG TABLET PO PRN (14:36)
[2018-09-11] MEDS ORDERED: MEPERIDINE 25 MG/1 ML VIAL IV PRN (14:36)
[2018-09-11] MEDS ORDERED: GLUCAGON 1 MG VIAL IM PRN (14:37)
[2018-09-11] MEDS ORDERED: DEXTROSE 50% 25 GM/50 ML VIAL IV PRN (14:37)
[2018-09-11 14:54] LABS: Apearance,Urine CLEAR (Clear); Bacteria,Urine Many /HPF (Few); Bilirubin,Urine Negative (Negative); Blood, Urine Large mg/dL (Negative); Glucose,Urine (UA) Negative (Negative); Hyaline Casts,Urine 16 /LPF (0-3); Ketones,Urine Negative (Negative); Mucus,Urine Occasional /LPF (Occasional); Nitrite,Urine Positive (Negative); Protein,Urine Negative; RBC,Urine 53 /HPF (0-4); Squamous Epithelial Cell,Urine Occasional /HPF (0-10); Urine Color Yellow (Yellow); Urine Specific Gravity 1.012 (1.001-1.035); Urine Urobilinogen < 2.0 EU/DL (0.2-1.0); WBC,Urine 30 /HPF (0-6)
[2018-09-11] MEDS ORDERED: cefOXitin 2,000 MG in SYRINGE 1 EACH IV SCH (15:00)
[2018-09-11] MEDS ORDERED: AMITRIPTYLINE 25 MG TABLET PO PRN (15:27)
[2018-09-11] MEDS: CARVEDILOL 3.125 MG TABLET PO SCH (18:41)
[2018-09-11] MEDS: INSULIN LISPRO 100 UNIT/ML SUBCUT SCH (18:41)
[2018-09-11] MEDS: BISOPROLOL 5 MG TABLET PO SCH (20:08)
[2018-09-12 05:26] LABS: Basophils % 0.4 % (0.0-0.8); Eosinophils # 0.2 10*3/uL (0.0-0.87); Eosinophils % 3.2 % (0.00-10.9); Hematocrit 33.5 VOL% (42.0-52.0); Hemoglobin 11.2 GM/DL (14.0-18.0); Immature Granulocytes % 0.3 %; Immature Granulocytes Absolute 0.02 #; Lymphocytes # 1.6 10*3/uL (1.4-4.0); Lymphocytes % 23.9 % (21.2-54.2); Mean Corpuscular HGB Conc 33.4 GM/DL (32-36); Mean Corpuscular Volume 94.9 FL (87-102); Mean Platelet Volume 10.5 FL (9.6-12.0); Monocytes % 8.2 % (1.7-12.7); Platelet Count 134 T/CUMM (130-400); Red Blood Count 3.53 MC/CUMM (3.8-5.5); Red Cell Distribution Width 13.5 % (9.3-17.3); White Blood Count 6.9 T/CUMM (4-12)
[2018-09-12] MEDS ORDERED: ceFAZolin 1,000 MG in SYRINGE 1 EACH IV ONE (06:00)
[2018-09-12 06:07] LABS: Calcium 8.9 MG/DL (8.5-10.1); Osmolality,Calculated 286.5 MOS/KG (273-304)
[2018-09-12 06:08] LABS: Albumin 3.1 G/DL (3.4-5.0); Bilirubin,Total 0.6 MG/DL (0.2-1.0); Calcium 8.9 MG/DL (8.5-10.1); Osmolality,Calculated 287.5 MOS/KG (273-304); Total Protein 6.2 G/DL (6.4-8.3)
[2018-09-12] MEDS: PANTOPRAZOLE 40 MG TABLET PO SCH (08:50)
[2018-09-12] MEDS: SERTRALINE 25 MG TABLET PO SCH (08:50)
[2018-09-12] MEDS: INSULIN LISPRO 100 UNIT/ML SUBCUT SCH ×3 (08:50→18:00)
[2018-09-12] MEDS: BISOPROLOL 5 MG TABLET PO SCH ×2 (08:50→20:24)
[2018-09-12] MEDS: CARVEDILOL 3.125 MG TABLET PO SCH ×2 (08:50→18:00)
[2018-09-12] MEDS ORDERED: CIPROFLOXACIN INJ 400 MG in PREMIX 1 EACH IV SCH (09:30)
[2018-09-12] MEDS: cefTRIAXone 1,000 MG in SYRINGE 1 EACH IV SCH (11:20)
[2018-09-12] MEDS: BISACODYL 5 MG TABLET PO PRN (15:37)
[2018-09-13] MEDS ORDERED: CLINDAMYCIN INJ 900 MG in PREMIX 1 EACH IV ONE (08:05)
[2018-09-13] MEDS: INSULIN LISPRO 100 UNIT/ML SUBCUT SCH ×3 (08:35→16:47)
[2018-09-13] MEDS: PANTOPRAZOLE 40 MG TABLET PO SCH (08:35)
[2018-09-13] MEDS: CARVEDILOL 3.125 MG TABLET PO SCH ×2 (08:35→16:45)
[2018-09-13] MEDS: BISOPROLOL 5 MG TABLET PO SCH ×2 (08:35→21:24)
[2018-09-13] MEDS: SERTRALINE 25 MG TABLET PO SCH (08:35)
[2018-09-13] MEDS: cefTRIAXone 1,000 MG in SYRINGE 1 EACH IV SCH (10:27)
[2018-09-13] MEDS: CEFEPIME 2,000 MG in SYRINGE 1 EACH IV SCH ×2 (15:20→23:44)
[2018-09-13] MEDS ORDERED: DEXTROSE 50% 25 GM/50 ML SYRINGE IV PRN (22:00)
[2018-09-14 05:35] LABS: Basophils % 0.3 % (0.0-0.8); Eosinophils # 0.3 10*3/uL (0.0-0.87); Hematocrit 33.5 VOL% (42.0-52.0); Immature Granulocytes % 0.3 %; Immature Granulocytes Absolute 0.02 #; Lymphocytes # 1.3 10*3/uL (1.4-4.0); Lymphocytes % 21.5 % (21.2-54.2); Mean Corpuscular HGB Conc 32.8 GM/DL (32-36); Mean Corpuscular Volume 96.3 FL (87-102); Mean Platelet Volume 10.1 FL (9.6-12.0); Monocytes % 9.5 % (1.7-12.7); Neutrophils % 63.4 % (38.7-73.9); Platelet Count 116 T/CUMM (130-400); Red Blood Count 3.48 MC/CUMM (3.8-5.5); Red Cell Distribution Width 13.4 % (9.3-17.3)
[2018-09-14 05:57] LABS: Calcium 8.7 MG/DL (8.5-10.1); Osmolality,Calculated 290.4 MOS/KG (273-304)
[2018-09-14] MEDS: CEFEPIME 2,000 MG in SYRINGE 1 EACH IV SCH ×3 (06:50→23:29)
[2018-09-14] MEDS ORDERED: TISSUE ADHESIVE 1 EACH APPLICATOR TOP ONE (07:13)
[2018-09-14] MEDS ORDERED: CLINDAMYCIN INJ 900 MG in PREMIX 1 EACH IV ONE (07:30)
[2018-09-14] MEDS: LACTATED RINGERS 1,000 ML IV SCH (08:30)
[2018-09-14] MEDS ORDERED: hydrALAZINE 20 MG/1 ML VIAL ONE (09:55)
[2018-09-14] MEDS ORDERED: hydrALAZINE 25 MG TABLET PO PRN (09:56)
[2018-09-14] MEDS: SERTRALINE 25 MG TABLET PO SCH (11:09)
[2018-09-14] MEDS: PANTOPRAZOLE 40 MG TABLET PO SCH (11:09)
[2018-09-14] MEDS: BISOPROLOL 5 MG TABLET PO SCH ×2 (11:10→20:44)
[2018-09-14] MEDS: predniSONE 10 MG TABLET PO SCH (11:10)
[2018-09-14] MEDS: amLODIPine 5 MG TABLET PO SCH (11:10)
[2018-09-14] MEDS: CARVEDILOL 3.125 MG TABLET PO SCH ×2 (11:11→16:31)
[2018-09-14] MEDS: INSULIN LISPRO 100 UNIT/ML SUBCUT SCH ×3 (11:18→16:32)
[2018-09-14] MEDS ORDERED: GLUCAGON 1 MG VIAL IM PRN (11:42)
[2018-09-14] MEDS ORDERED: DEXTROSE 50% 25 GM/50 ML VIAL IV PRN (11:42)
[2018-09-14] MEDS: BISACODYL 5 MG TABLET PO PRN (14:41)
[2018-09-14] MEDS: SIMVASTATIN 40 MG TABLET PO SCH (20:44)
[2018-09-15] MEDS: CEFEPIME 2,000 MG in SYRINGE 1 EACH IV SCH ×3 (06:29→22:52)
[2018-09-15] MEDS: BISACODYL 5 MG TABLET PO PRN (06:36)
[2018-09-15] MEDS: ASPIRIN EC 81 MG TABLET PO SCH (08:31)
[2018-09-15] MEDS: CARVEDILOL 3.125 MG TABLET PO SCH ×2 (08:31→16:58)
[2018-09-15] MEDS: amLODIPine 5 MG TABLET PO SCH (08:31)
[2018-09-15] MEDS: FUROSEMIDE 20 MG TABLET PO SCH (08:32)
[2018-09-15] MEDS: ISOSORBIDE MONONITRATE 30 MG TABLET PO SCH (08:32)
[2018-09-15] MEDS: predniSONE 10 MG TABLET PO SCH (08:32)
[2018-09-15] MEDS: INSULIN LISPRO 100 UNIT/ML SUBCUT SCH ×3 (08:32→16:58)
[2018-09-15] MEDS: SERTRALINE 25 MG TABLET PO SCH (08:32)
[2018-09-15] MEDS: BISOPROLOL 5 MG TABLET PO SCH ×2 (08:32→20:18)
[2018-09-15] MEDS: PANTOPRAZOLE 40 MG TABLET PO SCH (10:44)
[2018-09-15] MEDS: LACTATED RINGERS 1,000 ML IV SCH (19:20)
[2018-09-15] MEDS: SIMVASTATIN 40 MG TABLET PO SCH (20:18)
[2018-09-16] MEDS: CEFEPIME 2,000 MG in SYRINGE 1 EACH IV SCH ×3 (06:38→22:09)
[2018-09-16] MEDS: LACTATED RINGERS 1,000 ML IV SCH (08:30)
[2018-09-16] MEDS: ISOSORBIDE MONONITRATE 30 MG TABLET PO SCH (10:17)
[2018-09-16] MEDS: SERTRALINE 25 MG TABLET PO SCH (10:17)
[2018-09-16] MEDS: predniSONE 10 MG TABLET PO SCH (10:17)
[2018-09-16] MEDS: amLODIPine 5 MG TABLET PO SCH (10:17)
[2018-09-16] MEDS: FUROSEMIDE 20 MG TABLET PO SCH (10:17)
[2018-09-16] MEDS: CARVEDILOL 3.125 MG TABLET PO SCH ×2 (10:17→16:29)
[2018-09-16] MEDS: BISOPROLOL 5 MG TABLET PO SCH ×2 (10:17→20:37)
[2018-09-16] MEDS: ASPIRIN EC 81 MG TABLET PO SCH (10:18)
[2018-09-16] MEDS: PANTOPRAZOLE 40 MG TABLET PO SCH (10:18)
[2018-09-16] MEDS: INSULIN LISPRO 100 UNIT/ML SUBCUT SCH ×3 (10:19→16:29)
[2018-09-16] MEDS: ACETAMINOPHEN 325 MG TABLET PO PRN (13:11)
[2018-09-16] MEDS: SIMVASTATIN 40 MG TABLET PO SCH (20:37)
[2018-09-17] MEDS: LACTATED RINGERS 1,000 ML IV SCH ×3 (01:11→10:01)
[2018-09-17] MEDS: ACETAMINOPHEN 325 MG TABLET PO PRN (03:32)
[2018-09-17] MEDS ORDERED: ceFAZolin 2,000 MG in PREMIX 1 EACH IV ONE (06:00)
[2018-09-17] MEDS: CEFEPIME 2,000 MG in SYRINGE 1 EACH IV SCH ×3 (06:09→23:30)
[2018-09-17 06:19] LABS: Basophils % 0.2 % (0.0-0.8); Eosinophils # 0.2 10*3/uL (0.0-0.87); Eosinophils % 2.7 % (0.00-10.9); Hematocrit 35.7 VOL% (42.0-52.0); Hemoglobin 11.7 GM/DL (14.0-18.0); Immature Granulocytes % 0.2 %; Immature Granulocytes Absolute 0.02 #; Lymphocytes # 1.5 10*3/uL (1.4-4.0); Lymphocytes % 18.2 % (21.2-54.2); Mean Corpuscular HGB Conc 32.8 GM/DL (32-36); Mean Platelet Volume 10.8 FL (9.6-12.0); Monocytes % 9.9 % (1.7-12.7); Neutrophils % 68.8 % (38.7-73.9); Platelet Count 138 T/CUMM (130-400); Red Blood Count 3.72 MC/CUMM (3.8-5.5); Red Cell Distribution Width 13.3 % (9.3-17.3); White Blood Count 8.5 T/CUMM (4-12)
[2018-09-17 06:27] LABS: Calcium 9.7 MG/DL (8.5-10.1); Osmolality,Calculated 287.5 MOS/KG (273-304)
[2018-09-17] MEDS: SODIUM CHLORIDE 0.9% 1,000 ML IV SCH (08:00)
[2018-09-17 08:12] LABS: Basophils % 0.5 % (0.0-0.8); Eosinophils # 0.2 10*3/uL (0.0-0.87); Eosinophils % 2.8 % (0.00-10.9); Hematocrit 37.4 VOL% (42.0-52.0); Hemoglobin 12.2 GM/DL (14.0-18.0); Immature Granulocytes % 0.3 %; Immature Granulocytes Absolute 0.03 #; Lymphocytes # 1.6 10*3/uL (1.4-4.0); Lymphocytes % 18.9 % (21.2-54.2); Mean Corpuscular HGB Conc 32.6 GM/DL (32-36); Mean Corpuscular Volume 96.9 FL (87-102); Monocytes % 11.6 % (1.7-12.7); Neutrophils % 65.9 % (38.7-73.9); Platelet Count 140 T/CUMM (130-400); Red Blood Count 3.86 MC/CUMM (3.8-5.5); Red Cell Distribution Width 13.2 % (9.3-17.3); White Blood Count 8.7 T/CUMM (4-12)
[2018-09-17 08:20] LABS: INR 1.1; PT Patient Result 11.4 SECS; Partial Thromboplastin Time 22.6 SECS (0-40)
[2018-09-17 08:32] LABS: Albumin 3.5 G/DL (3.4-5.0); Bilirubin,Total 0.4 MG/DL (0.2-1.0); Calcium 9.6 MG/DL (8.5-10.1); Osmolality,Calculated 290.5 MOS/KG (273-304); Total Protein 7.1 G/DL (6.4-8.3)
[2018-09-17] MEDS: ISOSORBIDE MONONITRATE 30 MG TABLET PO SCH (08:38)
[2018-09-17] MEDS: ASPIRIN EC 81 MG TABLET PO SCH (08:38)
[2018-09-17] MEDS: FUROSEMIDE 20 MG TABLET PO SCH (08:38)
[2018-09-17] MEDS: CARVEDILOL 3.125 MG TABLET PO SCH ×2 (08:38→18:18)
[2018-09-17] MEDS: PANTOPRAZOLE 40 MG TABLET PO SCH (08:38)
[2018-09-17] MEDS: predniSONE 10 MG TABLET PO SCH (08:38)
[2018-09-17] MEDS: BISOPROLOL 5 MG TABLET PO SCH ×2 (08:38→20:42)
[2018-09-17] MEDS: SERTRALINE 25 MG TABLET PO SCH (08:39)
[2018-09-17] MEDS ORDERED: LORazepam 2 MG/1 ML VIAL IV ONE (10:39)
[2018-09-17] MEDS ORDERED: GLUCAGON 1 MG VIAL IM PRN (11:01)
[2018-09-17] MEDS ORDERED: DEXTROSE 50% 25 GM/50 ML SYRINGE IV PRN (11:01)
[2018-09-17] MEDS: INSULIN LISPRO 100 UNIT/ML SUBCUT SCH ×3 (13:28→18:18)
[2018-09-17 14:51] LABS: PT Patient Result 10.9 SECS; Partial Thromboplastin Time 24.3 SECS (0-40)
[2018-09-17] MEDS: HEPARIN DRIP 25,000 UNITS/500 ML PREMIX IV SCH (15:32)
[2018-09-17] MEDS: amLODIPine 5 MG TABLET PO SCH (15:54)
[2018-09-17] MEDS: SIMVASTATIN 40 MG TABLET PO SCH (20:42)
[2018-09-17 22:05] LABS: PT Patient Result 11.3 SECS
[2018-09-18] MEDS: CEFEPIME 2,000 MG in SYRINGE 1 EACH IV SCH ×3 (06:41→21:08)
[2018-09-18] MEDS: LACTATED RINGERS 1,000 ML IV SCH ×3 (07:38→16:44)
[2018-09-18 08:06] LABS: Basophils % 0.3 % (0.0-0.8); Eosinophils # 0.3 10*3/uL (0.0-0.87); Eosinophils % 3.8 % (0.00-10.9); Hematocrit 31.5 VOL% (42.0-52.0); Immature Granulocytes % 0.4 %; Immature Granulocytes Absolute 0.03 #; Lymphocytes # 1.9 10*3/uL (1.4-4.0); Lymphocytes % 24.2 % (21.2-54.2); Mean Corpuscular HGB Conc 32.1 GM/DL (32-36); Mean Corpuscular Volume 98.4 FL (87-102); Mean Platelet Volume 10.9 FL (9.6-12.0); Monocytes % 11.6 % (1.7-12.7); Neutrophils % 59.7 % (38.7-73.9); Platelet Count 112 T/CUMM (130-400); Red Cell Distribution Width 13.5 % (9.3-17.3); White Blood Count 7.7 T/CUMM (4-12)
[2018-09-18 08:12] LABS: Hemoglobin 10.1 GM/DL (14.0-18.0)
[2018-09-18] MEDS: INSULIN LISPRO 100 UNIT/ML SUBCUT SCH ×3 (08:28→16:43)
[2018-09-18] MEDS: ASPIRIN EC 81 MG TABLET PO SCH (08:29)
[2018-09-18] MEDS: amLODIPine 5 MG TABLET PO SCH (08:29)
[2018-09-18] MEDS: ISOSORBIDE MONONITRATE 30 MG TABLET PO SCH (08:29)
[2018-09-18] MEDS: BISOPROLOL 5 MG TABLET PO SCH ×2 (08:29→21:08)
[2018-09-18] MEDS: SERTRALINE 25 MG TABLET PO SCH (08:29)
[2018-09-18] MEDS: PANTOPRAZOLE 40 MG TABLET PO SCH (08:29)
[2018-09-18] MEDS: predniSONE 10 MG TABLET PO SCH (08:29)
[2018-09-18] MEDS: FUROSEMIDE 20 MG TABLET PO SCH (08:29)
[2018-09-18] MEDS: CARVEDILOL 3.125 MG TABLET PO SCH ×2 (08:29→16:43)
[2018-09-18] MEDS: SODIUM CHLORIDE 0.9% 1,000 ML IV SCH (08:35)
[2018-09-18 09:14] LABS: Sedimentation Rate-Westergren 30 MM/HR (0-20)
[2018-09-18 09:28] LABS: Apearance,Urine CLEAR (Clear); Bilirubin,Urine Negative (Negative); Blood, Urine Small mg/dL (Negative); Glucose,Urine (UA) Negative (Negative); Ketones,Urine 5 mg/dL (Negative); Nitrite,Urine Negative (Negative); Protein,Urine 30 MG/DL; RBC,Urine <1 /HPF (0-4); Squamous Epithelial Cell,Urine Occasional /HPF (0-10); Urine Color Yellow (Yellow); Urine Specific Gravity 1.013 (1.001-1.035); Urine Urobilinogen < 2.0 EU/DL (0.2-1.0); WBC,Urine 2 /HPF (0-6)
[2018-09-18] MEDS ORDERED: SODIUM CHLORIDE 0.9% 0 ML IV ONE (13:07)
[2018-09-18] MEDS: HEPARIN DRIP 25,000 UNITS/500 ML PREMIX IV SCH (15:19)
[2018-09-18] MEDS: SIMVASTATIN 40 MG TABLET PO SCH (21:08)
[2018-09-19] MEDS: LACTATED RINGERS 1,000 ML IV SCH ×3 (02:49→18:24)
[2018-09-19] MEDS ORDERED: LORazepam 2 MG/1 ML VIAL IV ONE ×2 (08:12→17:32)
[2018-09-19] MEDS: INSULIN LISPRO 100 UNIT/ML SUBCUT SCH ×3 (10:11→17:59)
[2018-09-19] MEDS: ISOSORBIDE MONONITRATE 30 MG TABLET PO SCH (10:26)
[2018-09-19] MEDS: amLODIPine 5 MG TABLET PO SCH (10:26)
[2018-09-19] MEDS: CARVEDILOL 3.125 MG TABLET PO SCH ×2 (10:26→17:56)
[2018-09-19] MEDS: SODIUM CHLORIDE 0.9% 1,000 ML IV SCH (15:57)
[2018-09-19] MEDS: ASPIRIN EC 81 MG TABLET PO SCH (16:26)
[2018-09-19] MEDS: FUROSEMIDE 20 MG TABLET PO SCH (16:26)
[2018-09-19] MEDS: CLOPIDOGREL 75 MG TABLET PO SCH (16:26)
[2018-09-19] MEDS: predniSONE 10 MG TABLET PO SCH (16:26)
[2018-09-19] MEDS: SERTRALINE 25 MG TABLET PO SCH (16:26)
[2018-09-19] MEDS: PANTOPRAZOLE 40 MG TABLET PO SCH (16:26)
[2018-09-19] MEDS: BISOPROLOL 5 MG TABLET PO SCH ×2 (16:26→21:35)
[2018-09-19] MEDS: CEFEPIME 2,000 MG in SYRINGE 1 EACH IV SCH ×2 (17:25→20:39)
[2018-09-19] MEDS ORDERED: HALOPERIDOL 5 MG/ML AMP IM ONE (17:32)
[2018-09-19] MEDS: SIMVASTATIN 40 MG TABLET PO SCH (21:35)
[2018-09-20] MEDS: LACTATED RINGERS 1,000 ML IV SCH ×2 (04:58→08:48)
[2018-09-20] MEDS: amLODIPine 5 MG TABLET PO SCH (08:42)
[2018-09-20] MEDS: ISOSORBIDE MONONITRATE 30 MG TABLET PO SCH (08:42)
[2018-09-20] MEDS: BISOPROLOL 5 MG TABLET PO SCH (08:43)
[2018-09-20] MEDS: CLOPIDOGREL 75 MG TABLET PO SCH (08:43)
[2018-09-20] MEDS: PANTOPRAZOLE 40 MG TABLET PO SCH (08:43)
[2018-09-20] MEDS: FUROSEMIDE 20 MG TABLET PO SCH (08:43)
[2018-09-20] MEDS: CARVEDILOL 3.125 MG TABLET PO SCH (08:43)
[2018-09-20] MEDS: SERTRALINE 25 MG TABLET PO SCH (08:43)
[2018-09-20] MEDS: ASPIRIN EC 81 MG TABLET PO SCH (08:43)
[2018-09-20] MEDS: INSULIN LISPRO 100 UNIT/ML SUBCUT SCH ×2 (08:45→12:39)
[2018-09-20] MEDS: CEFEPIME 2,000 MG in SYRINGE 1 EACH IV SCH (08:46)
[2018-09-20] MEDS: SODIUM CHLORIDE 0.9% 1,000 ML IV SCH (08:47)
[2018-09-20] MEDS ORDERED: predniSONE 5 MG TABLET PO SCH (09:00)
[2018-09-20 12:07] VITALS: BP 165/79
== END 2018-09-20 14:12 | DRG 393 ==
LOC: EDUNIT# → EDBD → N.ED 11:05 → N.EDINP 14:32 → SUATTDRO 14:32 → N.3E 18:05
PROVIDERS: ADMIT Surgery; ATTEND Family Medicine

== ENCOUNTER 2018-10-17 08:32 | Inpatient (IN) ==
[2018-10-17] MEDS ORDERED: ONDANSETRON 4 MG/2 ML VIAL IV PRN (08:48)
[2018-10-17] MEDS ORDERED: ACETAMINOPHEN 325 MG TABLET PO PRN (08:48)
[2018-10-17] MEDS ORDERED: ENOXAPARIN 40 MG/0.4 ML SYRINGE SUBCUT SCH (09:00)
[2018-10-17] MEDS ORDERED: NITROGLYCERIN SL 0.4 MG TABLET SL PRN (09:44)
[2018-10-17] MEDS: SODIUM CHLORIDE 0.45% 1,000 ML IV SCH ×4 (09:56→18:01)
[2018-10-17 10:03] LABS: Basophils # 0.1 10*3/uL (0.0-0.2); Basophils % 0.6 % (0.0-0.8); Eosinophils # 0.3 10*3/uL (0.0-0.87); Hematocrit 31.6 VOL% (42.0-52.0); Immature Granulocytes % 0.5 %; Immature Granulocytes Absolute 0.04 #; Lymphocytes % 23.9 % (21.2-54.2); Mean Corpuscular HGB Conc 31.6 GM/DL (32-36); Mean Corpuscular Volume 99.1 FL (87-102); Mean Platelet Volume 8.9 FL (9.6-12.0); Monocytes % 10.4 % (1.7-12.7); Neutrophils % 60.6 % (38.7-73.9); Platelet Count 277 T/CUMM (130-400); Red Blood Count 3.19 MC/CUMM (3.8-5.5); Red Cell Distribution Width 13.4 % (9.3-17.3); White Blood Count 8.2 T/CUMM (4-12)
[2018-10-17 10:28] LABS: Albumin 3.5 G/DL (3.4-5.0); Bilirubin,Total 1.1 MG/DL (0.2-1.0); Calcium 9.5 MG/DL (8.5-10.1); Osmolality,Calculated 282.5 MOS/KG (273-304)
[2018-10-17] MEDS: PANTOPRAZOLE 40 MG TABLET PO SCH (10:38)
[2018-10-17 13:47] LABS: Apearance,Urine CLOUDY (Clear); Bilirubin,Urine Negative (Negative); Blood, Urine Moderate mg/dL (Negative); Glucose,Urine (UA) Negative (Negative); Ketones,Urine Negative (Negative); Nitrite,Urine Negative (Negative); Protein,Urine 100 MG/DL; RBC,Urine 50 /HPF (0-4); Urine Color Yellow (Yellow); Urine Urobilinogen < 2.0 EU/DL (0.2-1.0); WBC,Urine 896 /HPF (0-6)
[2018-10-17] MEDS ORDERED: ALUMINUM/MAGNES/SIMETH MAX STR 30 ML UDCUP PO PRN (14:52)
[2018-10-17] MEDS: hydrALAZINE 25 MG TABLET PO SCH ×2 (15:11→20:49)
[2018-10-17] MEDS: CARVEDILOL 3.125 MG TABLET PO SCH (16:35)
[2018-10-17] MEDS: DEXTROMETHORPHAN ER 6 MG/ML 90 ML/BOTTLE PO PRN ×2 (16:35→22:25)
[2018-10-17] MEDS: MEROPENEM 1,000 MG in SODIUM CHLORIDE 0.9% 100 ML IV SCH (16:35)
[2018-10-17] MEDS ORDERED: IBUPROFEN 600 MG TABLET PO PRN (17:13)
[2018-10-17] MEDS: MINOXIDIL 2.5 MG TABLET PO SCH ×2 (17:57→20:50)
[2018-10-17] MEDS: METHENAMINE HIPPURATE 1 GM TABLET PO SCH (20:49)
[2018-10-17] MEDS: DOCUSATE SODIUM 100 MG CAPSULE PO SCH (20:49)
[2018-10-17] MEDS: QUEtiapine 25 MG TABLET PO SCH (20:50)
[2018-10-17] MEDS: SIMVASTATIN 40 MG TABLET PO SCH (20:50)
[2018-10-17] MEDS ORDERED: MELATONIN 3 MG TABLET PO PRN (21:00)
[2018-10-17] MEDS ORDERED: ENOXAPARIN 30 MG/0.3 ML SYRINGE SUBCUT SCH (21:00)
[2018-10-18] MEDS: SODIUM CHLORIDE 0.45% 1,000 ML IV SCH ×3 (02:37→18:45)
[2018-10-18 04:32] LABS: Basophils % 0.6 % (0.0-0.8); Eosinophils # 0.3 10*3/uL (0.0-0.87); Eosinophils % 4.1 % (0.00-10.9); Hematocrit 26.9 VOL% (42.0-52.0); Hemoglobin 8.6 GM/DL (14.0-18.0); Immature Granulocytes % 0.3 %; Immature Granulocytes Absolute 0.02 #; Lymphocytes # 1.3 10*3/uL (1.4-4.0); Mean Corpuscular Volume 96.8 FL (87-102); Monocytes % 9.9 % (1.7-12.7); Neutrophils % 67.1 % (38.7-73.9); Platelet Count 198 T/CUMM (130-400); Red Blood Count 2.78 MC/CUMM (3.8-5.5); Red Cell Distribution Width 13.2 % (9.3-17.3); White Blood Count 7.1 T/CUMM (4-12)
[2018-10-18 04:49] LABS: Albumin 2.8 G/DL (3.4-5.0); Bilirubin,Total 0.5 MG/DL (0.2-1.0); Calcium 8.5 MG/DL (8.5-10.1); Total Protein 5.7 G/DL (6.4-8.3)
[2018-10-18] MEDS ORDERED: ALBUTEROL/IPRATROPIUM 3 ML NEB RESP TX STA (05:13)
[2018-10-18] MEDS: MEROPENEM 1,000 MG in SODIUM CHLORIDE 0.9% 100 ML IV SCH ×2 (06:02→16:12)
[2018-10-18] MEDS ORDERED: LIDOCAINE 1%/EPI INJ 20 ML VIAL ONE (06:14)
[2018-10-18] MEDS ORDERED: TISSUE ADHESIVE 1 EACH APPLICATOR TOP ONE (06:14)
[2018-10-18] MEDS ORDERED: BUPIVACAINE 0.25% /EPI 10 ML VIAL ONE (06:14)
[2018-10-18] MEDS ORDERED: VANCOMYCIN INJ 1,000 MG in SODIUM CHLORIDE 0.9% 250 ML IV ONE (07:00)
[2018-10-18] MEDS ORDERED: SODIUM CHLORIDE 0.9% 1,000 ML IV PRN (07:01)
[2018-10-18] MEDS ORDERED: NITROGLYCERIN SL 0.4 MG TABLET SL ONE ×4 (07:11→08:04)
[2018-10-18] MEDS ORDERED: MORPHINE 10 MG/1 ML VIAL ONE (07:11)
[2018-10-18] MEDS ORDERED: ENOXAPARIN 80 MG/0.8 ML SYRINGE SUBCUT ONE ×2 (07:24→07:40)
[2018-10-18] MEDS ORDERED: METOPROLOL TARTRATE 25 MG TABLET ONE (07:28)
[2018-10-18 07:32] LABS: Hematocrit 30.3 VOL% (42.0-52.0); Hemoglobin 9.9 GM/DL (14.0-18.0)
[2018-10-18] MEDS ORDERED: METOPROLOL TARTRATE 25 MG TABLET PO ONE (07:39)
[2018-10-18] MEDS ORDERED: MORPHINE 4 MG/1 ML VIAL IV ONE (07:51)
[2018-10-18 08:00] LABS: Troponin I 0.023 NG/ML (0.00-0.045)
[2018-10-18] MEDS ORDERED: METOPROLOL TARTRATE 5 MG/5 ML VIAL IV ONE ×2 (08:21→08:41)
[2018-10-18] MEDS ORDERED: HEPARIN DRIP 25,000 UNITS/500 ML PREMIX IV SCH (08:40)
[2018-10-18] MEDS ORDERED: FUROSEMIDE 20 MG TABLET PO SCH (09:00)
[2018-10-18 09:14] LABS: Troponin I 0.026 NG/ML (0.00-0.045)
[2018-10-18 10:12] LABS: Troponin I 0.032 NG/ML (0.00-0.045)
[2018-10-18] MEDS: CLOPIDOGREL 75 MG TABLET PO SCH (10:41)
[2018-10-18] MEDS: MULTIVITAMIN (OCUVITE) TABLET PO SCH (10:41)
[2018-10-18] MEDS: MINOXIDIL 2.5 MG TABLET PO SCH (10:41)
[2018-10-18] MEDS: ISOSORBIDE MONONITRATE 30 MG TABLET PO SCH (10:41)
[2018-10-18] MEDS: METHENAMINE HIPPURATE 1 GM TABLET PO SCH ×2 (10:41→21:08)
[2018-10-18] MEDS: GLIMEPIRIDE 2 MG TABLET PO SCH (10:41)
[2018-10-18] MEDS: DOCUSATE SODIUM 100 MG CAPSULE PO SCH ×2 (10:41→21:09)
[2018-10-18] MEDS: FOLIC ACID 0.4 MG TABLET PO SCH (10:41)
[2018-10-18] MEDS: DEXTROMETHORPHAN ER 6 MG/ML 90 ML/BOTTLE PO PRN ×2 (10:41→21:08)
[2018-10-18] MEDS: amLODIPine 10 MG TABLET PO SCH (10:42)
[2018-10-18] MEDS: MULTIVITAMIN (CENTRUM) TABLET PO SCH (10:42)
[2018-10-18] MEDS: PANTOPRAZOLE 40 MG TABLET PO SCH (10:42)
[2018-10-18] MEDS: OMEGA 3 ACID ETHYL ESTERS 1 GM CAPSULE PO SCH (10:42)
[2018-10-18] MEDS: ASPIRIN 325 MG TABLET PO SCH (10:42)
[2018-10-18] MEDS: THIAMINE 100 MG TABLET PO SCH (10:42)
[2018-10-18] MEDS: CARVEDILOL 3.125 MG TABLET PO SCH (10:43)
[2018-10-18] MEDS: hydrALAZINE 25 MG TABLET PO SCH ×3 (10:43→21:09)
[2018-10-18 11:55] LABS: Troponin I 0.036 NG/ML (0.00-0.045)
[2018-10-18] MEDS ORDERED: NITROGLYCERIN 2% OINT 1 INCH/GM PACK TOP SCH (12:00)
[2018-10-18 12:38] LABS: Troponin I 0.042 NG/ML (0.00-0.045)
[2018-10-18 15:29] LABS: Hematocrit 28.9 VOL% (42.0-52.0); Hemoglobin 9.4 GM/DL (14.0-18.0)
[2018-10-18 15:55] LABS: Troponin I 0.039 NG/ML (0.00-0.045)
[2018-10-18 16:14] LABS: INR 1.1; PT Patient Result 11.4 SECS
[2018-10-18 16:38] LABS: Hematocrit 27.6 VOL% (42.0-52.0); Hemoglobin 9.1 GM/DL (14.0-18.0)
[2018-10-18] MEDS ORDERED: CARVEDILOL 6.25 MG TABLET PO SCH ×2 (17:00→19:30)
[2018-10-18 19:50] LABS: Troponin I 0.041 NG/ML (0.00-0.045)
[2018-10-18] MEDS: METOPROLOL TARTRATE 25 MG TABLET PO SCH (21:08)
[2018-10-18] MEDS: QUEtiapine 25 MG TABLET PO SCH (21:09)
[2018-10-18] MEDS: SIMVASTATIN 40 MG TABLET PO SCH (21:09)
[2018-10-19] MEDS: SODIUM CHLORIDE 0.45% 1,000 ML IV SCH ×2 (03:40→12:03)
[2018-10-19] MEDS: MEROPENEM 1,000 MG in SODIUM CHLORIDE 0.9% 100 ML IV SCH ×2 (03:42→16:54)
[2018-10-19 03:51] LABS: Basophils % 0.6 % (0.0-0.8); Eosinophils # 0.3 10*3/uL (0.0-0.87); Eosinophils % 5.9 % (0.00-10.9); Hematocrit 24.6 VOL% (42.0-52.0); Immature Granulocytes % 0.2 %; Immature Granulocytes Absolute 0.01 #; Lymphocytes # 1.2 10*3/uL (1.4-4.0); Lymphocytes % 23.4 % (21.2-54.2); Mean Corpuscular HGB Conc 32.5 GM/DL (32-36); Mean Corpuscular Volume 97.6 FL (87-102); Mean Platelet Volume 9.5 FL (9.6-12.0); Neutrophils % 57.9 % (38.7-73.9); Platelet Count 172 T/CUMM (130-400); Red Blood Count 2.52 MC/CUMM (3.8-5.5); Red Cell Distribution Width 13.3 % (9.3-17.3); White Blood Count 5.1 T/CUMM (4-12)
[2018-10-19 04:13] LABS: Calcium 8.2 MG/DL (8.5-10.1); Osmolality,Calculated 285.3 MOS/KG (273-304)
[2018-10-19 06:24] LABS: Hematocrit 27.1 VOL% (42.0-52.0); Hemoglobin 8.7 GM/DL (14.0-18.0)
[2018-10-19] MEDS: DEXTROMETHORPHAN ER 6 MG/ML 90 ML/BOTTLE PO PRN ×2 (08:53→20:32)
[2018-10-19] MEDS: PANTOPRAZOLE 40 MG TABLET PO SCH (08:55)
[2018-10-19] MEDS: DOCUSATE SODIUM 100 MG CAPSULE PO SCH ×2 (08:55→22:14)
[2018-10-19] MEDS: METOPROLOL TARTRATE 25 MG TABLET PO SCH (08:55)
[2018-10-19] MEDS: GLIMEPIRIDE 2 MG TABLET PO SCH (08:55)
[2018-10-19] MEDS: FOLIC ACID 0.4 MG TABLET PO SCH (08:55)
[2018-10-19] MEDS: MULTIVITAMIN (CENTRUM) TABLET PO SCH (08:55)
[2018-10-19] MEDS: hydrALAZINE 25 MG TABLET PO SCH ×3 (08:55→22:13)
[2018-10-19] MEDS: ASPIRIN 325 MG TABLET PO SCH (08:55)
[2018-10-19] MEDS: MULTIVITAMIN (OCUVITE) TABLET PO SCH (08:55)
[2018-10-19] MEDS: METHENAMINE HIPPURATE 1 GM TABLET PO SCH ×2 (08:56→22:14)
[2018-10-19] MEDS: CLOPIDOGREL 75 MG TABLET PO SCH (08:56)
[2018-10-19] MEDS: THIAMINE 100 MG TABLET PO SCH (08:56)
[2018-10-19] MEDS: ISOSORBIDE MONONITRATE 30 MG TABLET PO SCH (08:56)
[2018-10-19] MEDS: OMEGA 3 ACID ETHYL ESTERS 1 GM CAPSULE PO SCH ×2 (08:56→09:05)
[2018-10-19] MEDS: amLODIPine 10 MG TABLET PO SCH (08:59)
[2018-10-19] MEDS ORDERED: METOPROLOL TARTRATE 5 MG/5 ML VIAL IV ONE (09:56)
[2018-10-19] MEDS: BISOPROLOL 5 MG TABLET PO SCH ×2 (16:53→22:12)
[2018-10-19] MEDS ORDERED: ISOSORBIDE MONONITRATE 30 MG TABLET PO ONE (21:00)
[2018-10-19] MEDS ORDERED: METOPROLOL TARTRATE 50 MG TABLET PO SCH (21:00)
[2018-10-19] MEDS: SIMVASTATIN 40 MG TABLET PO SCH (22:12)
[2018-10-19] MEDS: QUEtiapine 25 MG TABLET PO SCH (22:12)
[2018-10-20 04:17] LABS: Basophils % 0.6 % (0.0-0.8); Eosinophils # 0.3 10*3/uL (0.0-0.87); Eosinophils % 5.2 % (0.00-10.9); Hematocrit 24.7 VOL% (42.0-52.0); Hemoglobin 8.1 GM/DL (14.0-18.0); Immature Granulocytes % 0.4 %; Immature Granulocytes Absolute 0.02 #; Lymphocytes # 1.3 10*3/uL (1.4-4.0); Lymphocytes % 25.2 % (21.2-54.2); Mean Corpuscular HGB Conc 32.8 GM/DL (32-36); Mean Corpuscular Volume 97.6 FL (87-102); Mean Platelet Volume 9.5 FL (9.6-12.0); Monocytes % 12.5 % (1.7-12.7); Neutrophils % 56.1 % (38.7-73.9); Platelet Count 163 T/CUMM (130-400); Red Blood Count 2.53 MC/CUMM (3.8-5.5); Red Cell Distribution Width 13.1 % (9.3-17.3)
[2018-10-20 04:44] LABS: Calcium 8.5 MG/DL (8.5-10.1); Osmolality,Calculated 291.8 MOS/KG (273-304)
[2018-10-20] MEDS: MEROPENEM 1,000 MG in SODIUM CHLORIDE 0.9% 100 ML IV SCH ×2 (05:30→16:19)
[2018-10-20] MEDS ORDERED: ISOSORBIDE MONONITRATE 60 MG TABLET PO SCH (09:00)
[2018-10-20] MEDS: PANTOPRAZOLE 40 MG TABLET PO SCH (09:11)
[2018-10-20] MEDS: MULTIVITAMIN (OCUVITE) TABLET PO SCH (09:11)
[2018-10-20] MEDS: BISOPROLOL 5 MG TABLET PO SCH (09:11)
[2018-10-20] MEDS: CLOPIDOGREL 75 MG TABLET PO SCH (09:11)
[2018-10-20] MEDS: FOLIC ACID 0.4 MG TABLET PO SCH (09:11)
[2018-10-20] MEDS: hydrALAZINE 25 MG TABLET PO SCH ×2 (09:12→15:25)
[2018-10-20] MEDS: METHENAMINE HIPPURATE 1 GM TABLET PO SCH (09:12)
[2018-10-20] MEDS: GLIMEPIRIDE 2 MG TABLET PO SCH (09:12)
[2018-10-20] MEDS: MULTIVITAMIN (CENTRUM) TABLET PO SCH (09:12)
[2018-10-20] MEDS: amLODIPine 10 MG TABLET PO SCH (09:12)
[2018-10-20] MEDS: DOCUSATE SODIUM 100 MG CAPSULE PO SCH (09:12)
[2018-10-20] MEDS: ASPIRIN 325 MG TABLET PO SCH (09:12)
[2018-10-20] MEDS: THIAMINE 100 MG TABLET PO SCH (09:12)
[2018-10-20] MEDS: OMEGA 3 ACID ETHYL ESTERS 1 GM CAPSULE PO SCH (09:13)
[2018-10-20] MEDS: DEXTROMETHORPHAN ER 6 MG/ML 90 ML/BOTTLE PO PRN (09:13)
[2018-10-20 12:42] LABS: Hematocrit 28.3 VOL% (42.0-52.0)
[2018-10-20 16:05] VITALS: BP 131/60
== END 2018-10-20 18:30 | disposition home health service (06) | DRG 394 ==
LOC: N.2E 09:08 → N.TELES 10-18 08:41
PROVIDERS: ADMIT Family Medicine; ATTEND Family Medicine

== ENCOUNTER 2019-07-04 06:18 | Observation (INO) ==
[2019-07-04] MEDS ORDERED: METOPROLOL TARTRATE 5 MG/5 ML VIAL IV STA ×2 (06:38→07:53)
[2019-07-04] MEDS ORDERED: NITROGLYCERIN 2% OINT 1 INCH/GM PACK TOP STA (06:38)
[2019-07-04] MEDS ORDERED: ASPIRIN 325 MG TABLET PO STA (06:38)
[2019-07-04] MEDS ORDERED: ENOXAPARIN 80 MG/0.8 ML SYRINGE SUBCUT STA (06:39)
[2019-07-04 06:50] LABS: Basophils # 0.1 10*3/uL (0.0-0.2); Eosinophils # 0.5 10*3/uL (0.0-0.87); Eosinophils % 7.9 % (0.00-10.9); Hematocrit 31.5 VOL% (42.0-52.0); Hemoglobin 10.2 GM/DL (14.0-18.0); Immature Granulocytes % 0.2 %; Immature Granulocytes Absolute 0.01 #; Lymphocytes # 1.2 10*3/uL (1.4-4.0); Lymphocytes % 19.2 % (21.2-54.2); Mean Corpuscular HGB Conc 32.4 GM/DL (32-36); Mean Corpuscular Volume 97.2 FL (87-102); Mean Platelet Volume 10.2 FL (9.6-12.0); Monocytes % 9.5 % (1.7-12.7); Neutrophils % 62.2 % (38.7-73.9); Platelet Count 144 T/CUMM (130-400); Red Blood Count 3.24 MC/CUMM (3.8-5.5); Red Cell Distribution Width 11.9 % (9.3-17.3); White Blood Count 6.2 T/CUMM (4-12)
[2019-07-04] MEDS ORDERED: ACETAMINOPHEN 325 MG TABLET PO PRN (06:55)
[2019-07-04] MEDS ORDERED: ONDANSETRON 4 MG/2 ML VIAL IV PRN (06:55)
[2019-07-04 06:59] LABS: PT Patient Result 11.1 SECS (9.6-12.2); Partial Thromboplastin Time 26.5 SECS (20.8-36.0)
[2019-07-04 07:13] LABS: Alanine Aminotransferase 21 U/L (16-61); Albumin 3.6 G/DL (3.4-5.0); Alkaline Phosphatase 58 U/L (45-117); Aspartate Amino Transferase 21 U/L (0-37); Bilirubin,Total < 0.39 MG/DL (0.2-1.0); Blood Urea Nitrogen 42 MG/DL (7-18); Calcium 8.4 MG/DL (8.5-10.1); Estimated Glom Filtration Rate 19 ML/MIN; Glucose 205 MG/DL (74-106); Osmolality,Calculated 286.1 MOS/KG (273-304); Total Protein 6.6 G/DL (6.4-8.3)
[2019-07-04 07:19] LABS: Risk Ratio 3.39; VLDL CHOLESTEROL 31.2 MG/DL
[2019-07-04] MEDS ORDERED: MELATONIN 3 MG TABLET PO PRN (08:04)
[2019-07-04] MEDS: FOLIC ACID 0.4 MG TABLET PO SCH (09:53)
[2019-07-04] MEDS: BISOPROLOL 5 MG TABLET PO SCH ×2 (09:53→21:00)
[2019-07-04] MEDS: ASPIRIN EC 81 MG TABLET PO SCH (09:53)
[2019-07-04] MEDS: DOCUSATE SODIUM 100 MG CAPSULE PO SCH ×2 (09:54→20:56)
[2019-07-04] MEDS: amLODIPine 10 MG TABLET PO SCH (09:54)
[2019-07-04] MEDS: METHENAMINE HIPPURATE 1 GM TABLET PO SCH ×2 (09:54→20:55)
[2019-07-04] MEDS: ISOSORBIDE MONONITRATE 30 MG TABLET PO SCH (09:54)
[2019-07-04] MEDS: MULTIVITAMIN (CENTRUM) TABLET PO SCH (09:54)
[2019-07-04] MEDS: PANTOPRAZOLE 40 MG TABLET PO SCH (09:54)
[2019-07-04] MEDS: CLOPIDOGREL 75 MG TABLET PO SCH (09:54)
[2019-07-04] MEDS: IRON (CARBONYL)/VIT C/B12/FA TABLET PO SCH (09:55)
[2019-07-04] MEDS: OMEGA 3 ACID ETHYL ESTERS 1 GM CAPSULE PO SCH (09:56)
[2019-07-04] MEDS: SODIUM CHLORIDE 0.9% 1,000 ML IV SCH ×2 (10:08→18:14)
[2019-07-04] MEDS: hydrALAZINE 25 MG TABLET PO SCH ×2 (12:11→17:22)
[2019-07-04] MEDS: GABAPENTIN 100 MG CAPSULE PO SCH ×3 (14:23→20:56)
[2019-07-04] MEDS: ACETAMINOPHEN 325 MG TABLET PO SCH ×2 (14:24→20:54)
[2019-07-04] MEDS ORDERED: VENLAFAXINE 37.5 MG TABLET PO ONE (18:37)
[2019-07-04] MEDS: QUEtiapine 25 MG TABLET PO SCH (20:54)
[2019-07-04] MEDS: SIMVASTATIN 40 MG TABLET PO SCH (20:55)
[2019-07-05] MEDS: SODIUM CHLORIDE 0.9% 1,000 ML IV SCH ×5 (02:45→23:04)
[2019-07-05 06:05] LABS: Basophils # 0.1 10*3/uL (0.0-0.2); Eosinophils # 0.5 10*3/uL (0.0-0.87); Eosinophils % 10.7 % (0.00-10.9); Hematocrit 27.6 VOL% (42.0-52.0); Hemoglobin 8.8 GM/DL (14.0-18.0); Immature Granulocytes % 0.2 %; Immature Granulocytes Absolute 0.01 #; Lymphocytes # 1.1 10*3/uL (1.4-4.0); Lymphocytes % 23.1 % (21.2-54.2); Mean Corpuscular HGB Conc 31.9 GM/DL (32-36); Mean Corpuscular Volume 99.3 FL (87-102); Mean Platelet Volume 10.7 FL (9.6-12.0); Monocytes % 9.5 % (1.7-12.7); Neutrophils % 55.5 % (38.7-73.9); Platelet Count 114 T/CUMM (130-400); Red Blood Count 2.78 MC/CUMM (3.8-5.5); Red Cell Distribution Width 11.9 % (9.3-17.3); White Blood Count 4.8 T/CUMM (4-12)
[2019-07-05] MEDS: ENOXAPARIN 30 MG/0.3 ML SYRINGE SUBCUT SCH (06:08)
[2019-07-05 06:28] LABS: Bilirubin,Total 0.7 MG/DL (0.2-1.0); Calcium 8.1 MG/DL (8.5-10.1); Osmolality,Calculated 291.4 MOS/KG (273-304); Total Protein 5.6 G/DL (6.4-8.3)
[2019-07-05] MEDS ORDERED: MORPHINE 4 MG/1 ML VIAL IV ONE (08:52)
[2019-07-05] MEDS ORDERED: ALUM/MAG/SIMETH/LIDO VISC 1:1 30 ML BOTTLE PO ONE (09:20)
[2019-07-05] MEDS ORDERED: clonazePAM 0.5 MG TABLET PO PRN (09:32)
[2019-07-05] MEDS: GLIMEPIRIDE 2 MG TABLET PO SCH (10:31)
[2019-07-05] MEDS: hydrALAZINE 25 MG TABLET PO SCH ×3 (10:31→17:39)
[2019-07-05] MEDS: FOLIC ACID 0.4 MG TABLET PO SCH (10:32)
[2019-07-05] MEDS: MULTIVITAMIN (CENTRUM) TABLET PO SCH (10:32)
[2019-07-05] MEDS: DOCUSATE SODIUM 100 MG CAPSULE PO SCH ×2 (10:32→21:37)
[2019-07-05] MEDS: ASPIRIN EC 81 MG TABLET PO SCH (10:32)
[2019-07-05] MEDS: VENLAFAXINE 37.5 MG TABLET PO SCH (10:32)
[2019-07-05] MEDS: ISOSORBIDE MONONITRATE 30 MG TABLET PO SCH (10:33)
[2019-07-05] MEDS: OMEGA 3 ACID ETHYL ESTERS 1 GM CAPSULE PO SCH (10:33)
[2019-07-05] MEDS: GABAPENTIN 100 MG CAPSULE PO SCH ×3 (10:33→21:36)
[2019-07-05] MEDS: IRON (CARBONYL)/VIT C/B12/FA TABLET PO SCH (10:33)
[2019-07-05] MEDS: BISOPROLOL 5 MG TABLET PO SCH ×2 (10:34→21:36)
[2019-07-05] MEDS: PANTOPRAZOLE 40 MG TABLET PO SCH (10:34)
[2019-07-05] MEDS: ACETAMINOPHEN 325 MG TABLET PO SCH ×2 (10:34→21:37)
[2019-07-05] MEDS: CLOPIDOGREL 75 MG TABLET PO SCH (10:34)
[2019-07-05] MEDS: amLODIPine 10 MG TABLET PO SCH (10:34)
[2019-07-05] MEDS: METHENAMINE HIPPURATE 1 GM TABLET PO SCH ×2 (10:40→21:45)
[2019-07-05] MEDS ORDERED: GLUCAGON 1 MG VIAL IM PRN (11:05)
[2019-07-05] MEDS ORDERED: DEXTROSE 10% 250 ML BAG IV PRN (11:05)
[2019-07-05 12:16] LABS: Troponin I 0.041 NG/ML (0.00-0.045)
[2019-07-05 14:45] LABS: Troponin I 0.084 NG/ML (0.00-0.045)
[2019-07-05 17:49] LABS: Troponin I 0.101 NG/ML (0.00-0.045)
[2019-07-05] MEDS: SIMVASTATIN 40 MG TABLET PO SCH (21:36)
[2019-07-05] MEDS: QUEtiapine 25 MG TABLET PO SCH (21:37)
[2019-07-06] MEDS: NITROGLYCERIN SL 0.4 MG TABLET SL PRN ×2 (04:11→05:53)
[2019-07-06] MEDS: SODIUM CHLORIDE 0.9% 1,000 ML IV SCH ×3 (04:13→15:02)
[2019-07-06] MEDS: ENOXAPARIN 30 MG/0.3 ML SYRINGE SUBCUT SCH (06:12)
[2019-07-06 06:21] LABS: Basophils # 0.1 10*3/uL (0.0-0.2); Basophils % 1.1 % (0.0-0.8); Eosinophils # 0.6 10*3/uL (0.0-0.87); Eosinophils % 11.1 % (0.00-10.9); Hematocrit 28.4 VOL% (42.0-52.0); Hemoglobin 9.1 GM/DL (14.0-18.0); Immature Granulocytes % 0.2 %; Immature Granulocytes Absolute 0.01 #; Lymphocytes # 1.2 10*3/uL (1.4-4.0); Mean Corpuscular Volume 99.3 FL (87-102); Mean Platelet Volume 10.4 FL (9.6-12.0); Monocytes % 9.4 % (1.7-12.7); Neutrophils % 56.2 % (38.7-73.9); Platelet Count 118 T/CUMM (130-400); Red Blood Count 2.86 MC/CUMM (3.8-5.5); Red Cell Distribution Width 12.1 % (9.3-17.3); White Blood Count 5.4 T/CUMM (4-12)
[2019-07-06 06:42] LABS: Eosinophils 17 % (0-10); Lymphocytes 27 % (20-55); Segmented Neutrophils 51 % (50-85); Total Cells Counted 100
[2019-07-06 06:43] LABS: Hypochromasia Slight; Ovalocytes Slight; Platelet Estimate Decreased
[2019-07-06 06:59] LABS: Osmolality,Calculated 289.3 MOS/KG (273-304)
[2019-07-06] MEDS: BISOPROLOL 5 MG TABLET PO SCH ×2 (08:28→21:02)
[2019-07-06] MEDS: OMEGA 3 ACID ETHYL ESTERS 1 GM CAPSULE PO SCH (08:28)
[2019-07-06] MEDS: DOCUSATE SODIUM 100 MG CAPSULE PO SCH ×2 (08:30→21:02)
[2019-07-06] MEDS: FOLIC ACID 0.4 MG TABLET PO SCH (08:34)
[2019-07-06] MEDS: ASPIRIN EC 81 MG TABLET PO SCH (08:35)
[2019-07-06] MEDS: GLIMEPIRIDE 2 MG TABLET PO SCH (08:35)
[2019-07-06] MEDS: PANTOPRAZOLE 40 MG TABLET PO SCH (08:35)
[2019-07-06] MEDS: ACETAMINOPHEN 325 MG TABLET PO SCH ×2 (08:35→21:02)
[2019-07-06] MEDS: MULTIVITAMIN (CENTRUM) TABLET PO SCH (08:35)
[2019-07-06] MEDS: GABAPENTIN 100 MG CAPSULE PO SCH ×3 (08:36→21:02)
[2019-07-06] MEDS: CLOPIDOGREL 75 MG TABLET PO SCH (08:36)
[2019-07-06] MEDS: METHENAMINE HIPPURATE 1 GM TABLET PO SCH ×2 (08:36→21:03)
[2019-07-06] MEDS: hydrALAZINE 25 MG TABLET PO SCH ×3 (08:36→16:23)
[2019-07-06] MEDS: VENLAFAXINE 37.5 MG TABLET PO SCH (08:36)
[2019-07-06] MEDS: amLODIPine 10 MG TABLET PO SCH (08:37)
[2019-07-06] MEDS: ISOSORBIDE MONONITRATE 30 MG TABLET PO SCH (08:37)
[2019-07-06] MEDS: IRON (CARBONYL)/VIT C/B12/FA TABLET PO SCH (08:37)
[2019-07-06] MEDS: QUEtiapine 25 MG TABLET PO SCH (21:02)
[2019-07-06] MEDS: SIMVASTATIN 40 MG TABLET PO SCH (21:03)
[2019-07-07] MEDS: SODIUM CHLORIDE 0.9% 1,000 ML IV SCH ×2 (01:15→06:01)
[2019-07-07 05:38] LABS: Basophils # 0.1 10*3/uL (0.0-0.2); Eosinophils # 0.6 10*3/uL (0.0-0.87); Eosinophils % 12.1 % (0.00-10.9); Hematocrit 28.4 VOL% (42.0-52.0); Immature Granulocytes % 0.2 %; Immature Granulocytes Absolute 0.01 #; Lymphocytes # 1.2 10*3/uL (1.4-4.0); Lymphocytes % 23.7 % (21.2-54.2); Mean Corpuscular HGB Conc 31.7 GM/DL (32-36); Monocytes % 9.7 % (1.7-12.7); Neutrophils % 53.3 % (38.7-73.9); Platelet Count 109 T/CUMM (130-400); Red Blood Count 2.84 MC/CUMM (3.8-5.5); Red Cell Distribution Width 12.2 % (9.3-17.3); White Blood Count 5.1 T/CUMM (4-12)
[2019-07-07 05:53] LABS: Calcium 8.4 MG/DL (8.5-10.1); Osmolality,Calculated 286.4 MOS/KG (273-304)
[2019-07-07] MEDS: ENOXAPARIN 30 MG/0.3 ML SYRINGE SUBCUT SCH (06:26)
[2019-07-07 06:37] LABS: Eosinophils 17 % (0-10); Lymphocytes 19 % (20-55); Segmented Neutrophils 53 % (50-85); Total Cells Counted 100
[2019-07-07 06:38] LABS: Helmet Cells Few; Platelet Estimate Decreased
[2019-07-07] MEDS: hydrALAZINE 25 MG TABLET PO SCH ×3 (09:49→17:22)
[2019-07-07] MEDS: ASPIRIN EC 81 MG TABLET PO SCH (09:49)
[2019-07-07] MEDS: amLODIPine 10 MG TABLET PO SCH (09:49)
[2019-07-07] MEDS: PANTOPRAZOLE 40 MG TABLET PO SCH (09:49)
[2019-07-07] MEDS: DOCUSATE SODIUM 100 MG CAPSULE PO SCH ×2 (09:49→21:11)
[2019-07-07] MEDS: ACETAMINOPHEN 325 MG TABLET PO SCH ×2 (09:50→21:11)
[2019-07-07] MEDS: CLOPIDOGREL 75 MG TABLET PO SCH (09:50)
[2019-07-07] MEDS: IRON (CARBONYL)/VIT C/B12/FA TABLET PO SCH (09:51)
[2019-07-07] MEDS: OMEGA 3 ACID ETHYL ESTERS 1 GM CAPSULE PO SCH (09:51)
[2019-07-07] MEDS: FOLIC ACID 0.4 MG TABLET PO SCH (09:51)
[2019-07-07] MEDS: METHENAMINE HIPPURATE 1 GM TABLET PO SCH ×2 (09:51→21:11)
[2019-07-07] MEDS: MULTIVITAMIN (CENTRUM) TABLET PO SCH (09:52)
[2019-07-07] MEDS: GABAPENTIN 100 MG CAPSULE PO SCH ×3 (09:53→21:11)
[2019-07-07] MEDS: VENLAFAXINE 37.5 MG TABLET PO SCH (09:53)
[2019-07-07] MEDS: GLIMEPIRIDE 2 MG TABLET PO SCH (09:53)
[2019-07-07] MEDS: ISOSORBIDE MONONITRATE 30 MG TABLET PO SCH (09:53)
[2019-07-07] MEDS: BISOPROLOL 5 MG TABLET PO SCH ×2 (09:54→21:11)
[2019-07-07] MEDS ORDERED: FUROSEMIDE 40 MG/4 ML VIAL IV ONE (11:44)
[2019-07-07] MEDS: SIMVASTATIN 40 MG TABLET PO SCH (21:11)
[2019-07-07] MEDS: QUEtiapine 25 MG TABLET PO SCH (21:11)
[2019-07-08 05:51] LABS: Basophils # 0.1 10*3/uL (0.0-0.2); Basophils % 1.1 % (0.0-0.8); Eosinophils # 0.6 10*3/uL (0.0-0.87); Eosinophils % 12.1 % (0.00-10.9); Hematocrit 27.6 VOL% (42.0-52.0); Hemoglobin 8.9 GM/DL (14.0-18.0); Immature Granulocytes % 0.2 %; Immature Granulocytes Absolute 0.01 #; Lymphocytes # 1.3 10*3/uL (1.4-4.0); Lymphocytes % 24.3 % (21.2-54.2); Mean Corpuscular HGB Conc 32.2 GM/DL (32-36); Mean Corpuscular Volume 97.9 FL (87-102); Mean Platelet Volume 10.8 FL (9.6-12.0); Neutrophils % 51.3 % (38.7-73.9); Platelet Count 114 T/CUMM (130-400); Red Blood Count 2.82 MC/CUMM (3.8-5.5); White Blood Count 5.3 T/CUMM (4-12)
[2019-07-08] MEDS: ENOXAPARIN 30 MG/0.3 ML SYRINGE SUBCUT SCH (06:00)
[2019-07-08 06:03] LABS: Calcium 8.7 MG/DL (8.5-10.1); Osmolality,Calculated 288.4 MOS/KG (273-304)
[2019-07-08 06:20] LABS: Eosinophils 19 % (0-10); Lymphocytes 19 % (20-55); Platelet Estimate Decreased; Segmented Neutrophils 57 % (50-85); Total Cells Counted 100
[2019-07-08 06:21] LABS: Hypochromasia Slight
[2019-07-08] MEDS: VENLAFAXINE 37.5 MG TABLET PO SCH (11:06)
[2019-07-08] MEDS: FOLIC ACID 0.4 MG TABLET PO SCH (11:06)
[2019-07-08] MEDS: amLODIPine 10 MG TABLET PO SCH (11:07)
[2019-07-08] MEDS: ASPIRIN EC 81 MG TABLET PO SCH (11:07)
[2019-07-08] MEDS: MULTIVITAMIN (CENTRUM) TABLET PO SCH (11:07)
[2019-07-08] MEDS: DOCUSATE SODIUM 100 MG CAPSULE PO SCH ×2 (11:07→21:52)
[2019-07-08] MEDS: GLIMEPIRIDE 2 MG TABLET PO SCH (11:07)
[2019-07-08] MEDS: ISOSORBIDE MONONITRATE 30 MG TABLET PO SCH (11:07)
[2019-07-08] MEDS: BISOPROLOL 5 MG TABLET PO SCH ×2 (11:08→21:53)
[2019-07-08] MEDS: IRON (CARBONYL)/VIT C/B12/FA TABLET PO SCH (11:08)
[2019-07-08] MEDS: GABAPENTIN 100 MG CAPSULE PO SCH ×3 (11:08→21:51)
[2019-07-08] MEDS: hydrALAZINE 25 MG TABLET PO SCH ×2 (11:08→13:02)
[2019-07-08] MEDS: ACETAMINOPHEN 325 MG TABLET PO SCH ×2 (11:08→21:51)
[2019-07-08] MEDS: PANTOPRAZOLE 40 MG TABLET PO SCH (11:08)
[2019-07-08] MEDS: OMEGA 3 ACID ETHYL ESTERS 1 GM CAPSULE PO SCH (11:08)
[2019-07-08] MEDS: METHENAMINE HIPPURATE 1 GM TABLET PO SCH ×2 (11:09→21:54)
[2019-07-08] MEDS: CLOPIDOGREL 75 MG TABLET PO SCH (11:09)
[2019-07-08] MEDS: QUEtiapine 25 MG TABLET PO SCH (21:51)
[2019-07-08] MEDS: SIMVASTATIN 40 MG TABLET PO SCH (21:53)
[2019-07-09] MEDS: ENOXAPARIN 30 MG/0.3 ML SYRINGE SUBCUT SCH (06:39)
[2019-07-09] MEDS: FOLIC ACID 0.4 MG TABLET PO SCH (10:07)
[2019-07-09] MEDS: IRON (CARBONYL)/VIT C/B12/FA TABLET PO SCH (10:07)
[2019-07-09] MEDS: GABAPENTIN 100 MG CAPSULE PO SCH (10:07)
[2019-07-09] MEDS: DOCUSATE SODIUM 100 MG CAPSULE PO SCH (10:07)
[2019-07-09] MEDS: VENLAFAXINE 37.5 MG TABLET PO SCH (10:08)
[2019-07-09] MEDS: CLOPIDOGREL 75 MG TABLET PO SCH (10:08)
[2019-07-09] MEDS: METHENAMINE HIPPURATE 1 GM TABLET PO SCH (10:08)
[2019-07-09] MEDS: amLODIPine 10 MG TABLET PO SCH (10:08)
[2019-07-09] MEDS: BISOPROLOL 5 MG TABLET PO SCH (10:08)
[2019-07-09] MEDS: MULTIVITAMIN (CENTRUM) TABLET PO SCH (10:09)
[2019-07-09] MEDS: ACETAMINOPHEN 325 MG TABLET PO SCH (10:09)
[2019-07-09] MEDS: ISOSORBIDE MONONITRATE 30 MG TABLET PO SCH (10:09)
[2019-07-09] MEDS: GLIMEPIRIDE 2 MG TABLET PO SCH (10:10)
[2019-07-09] MEDS: ASPIRIN EC 81 MG TABLET PO SCH (10:10)
[2019-07-09] MEDS: PANTOPRAZOLE 40 MG TABLET PO SCH (10:10)
[2019-07-09] MEDS: OMEGA 3 ACID ETHYL ESTERS 1 GM CAPSULE PO SCH (10:19)
[2019-07-09 11:31] VITALS: BP 144/98
== END 2019-07-09 12:45 | disposition home or self-care (01) ==
LOC: EDBD → EDUNIT# → N.EDINP 06:18 → N.ED 06:18 → N.TELEN 08:26
PROVIDERS: ADMIT Family Medicine; ATTEND Family Medicine

== ENCOUNTER 2019-09-16 10:21 | Inpatient (IN) ==
[2019-09-16 10:43] LABS: Basophils # 0.1 10*3/uL (0.0-0.2); Basophils % 1.1 % (0.0-0.8); Eosinophils # 0.7 10*3/uL (0.0-0.87); Eosinophils % 10.1 % (0.00-10.9); Hematocrit 34.3 VOL% (42.0-52.0); Hemoglobin 10.8 GM/DL (14.0-18.0); Immature Granulocytes % 0.2 %; Immature Granulocytes Absolute 0.01 #; Lymphocytes # 1.4 10*3/uL (1.4-4.0); Lymphocytes % 21.2 % (21.2-54.2); Mean Corpuscular HGB Conc 31.5 GM/DL (32-36); Mean Platelet Volume 10.5 FL (9.6-12.0); Monocytes % 9.3 % (1.7-12.7); Neutrophils % 58.1 % (38.7-73.9); Platelet Count 149 T/CUMM (130-400); Red Blood Count 3.43 MC/CUMM (3.8-5.5); Red Cell Distribution Width 12.4 % (9.3-17.3); White Blood Count 6.6 T/CUMM (4-12)
[2019-09-16] MEDS ORDERED: FUROSEMIDE 40 MG/4 ML VIAL IV STA (10:45)
[2019-09-16] MEDS ORDERED: NITROGLYCERIN 2% OINT 1 INCH/GM PACK TOP STA (10:45)
[2019-09-16] MEDS ORDERED: HYDROmorphone 2 MG/1 ML VIAL IV STA (10:45)
[2019-09-16] MEDS ORDERED: ASPIRIN 325 MG TABLET PO STA (10:45)
[2019-09-16] MEDS ORDERED: ALUM/MAG/SIMETH/LIDO VISC 1:1 30 ML BOTTLE PO STA (10:45)
[2019-09-16] MEDS ORDERED: ONDANSETRON 4 MG/2 ML VIAL IV STA (10:45)
[2019-09-16 11:10] LABS: Albumin 3.9 G/DL (3.4-5.0); Calcium 9.3 MG/DL (8.5-10.1); Osmolality,Calculated 294.4 MOS/KG (273-304); Total Protein 7.3 G/DL (6.4-8.3)
[2019-09-16] MEDS ORDERED: ENOXAPARIN 100 MG/ML SYRINGE SUBCUT STA (11:22)
[2019-09-16 11:28] LABS: INR 1.2; PT Patient Result 12.4 SECS (9.8-11.9); Partial Thromboplastin Time 28.8 SECS (23.9-33.8)
[2019-09-16] MEDS ORDERED: DEXTROSE 50% 25 GM/50 ML VIAL IV PRN (13:10)
[2019-09-16] MEDS ORDERED: HYDROmorphone 2 MG/1 ML VIAL IV PRN (13:10)
[2019-09-16] MEDS ORDERED: ONDANSETRON 4 MG/2 ML VIAL IV PRN (13:10)
[2019-09-16] MEDS ORDERED: ALBUTEROL/IPRATROPIUM 3 ML NEB RESP TX PRN (13:10)
[2019-09-16] MEDS ORDERED: GLUCAGON 1 MG VIAL IM PRN (13:10)
[2019-09-16] MEDS ORDERED: ACETAMINOPHEN 325 MG TABLET PO PRN (13:10)
[2019-09-16] MEDS: INSULIN REGULAR 100 UNIT/ML SUBCUT SCH ×2 (13:27→17:11)
[2019-09-16] MEDS: SODIUM CHLORIDE 0.9% 1,000 ML IV SCH (13:51)
[2019-09-16] MEDS: ENOXAPARIN 30 MG/0.3 ML SYRINGE SUBCUT SCH (13:51)
[2019-09-16] MEDS: NITROGLYCERIN 2% OINT 1 INCH/GM PACK TOP SCH ×2 (13:52→17:11)
[2019-09-16] MEDS ORDERED: NITROGLYCERIN SL 0.4 MG TABLET SL PRN (16:19)
[2019-09-16] MEDS ORDERED: MELATONIN 3 MG TABLET PO PRN (16:26)
[2019-09-16] MEDS ORDERED: clonazePAM 0.5 MG TABLET PO PRN (16:26)
[2019-09-16] MEDS: FUROSEMIDE 20 MG/2 ML VIAL IV SCH (17:11)
[2019-09-16] MEDS: hydrALAZINE 25 MG TABLET PO SCH (20:59)
[2019-09-16] MEDS: DOCUSATE SODIUM 100 MG CAPSULE PO SCH (21:02)
[2019-09-16] MEDS: GABAPENTIN 100 MG CAPSULE PO SCH (21:03)
[2019-09-16] MEDS: SIMVASTATIN 40 MG TABLET PO SCH (21:03)
[2019-09-16] MEDS: ISOSORBIDE MONONITRATE 30 MG TABLET PO SCH (21:03)
[2019-09-16] MEDS: QUEtiapine 25 MG TABLET PO SCH (21:04)
[2019-09-16] MEDS: VENLAFAXINE 37.5 MG TABLET PO SCH (21:04)
[2019-09-16] MEDS: PANTOPRAZOLE 40 MG TABLET PO SCH (21:04)
[2019-09-16] MEDS: BISOPROLOL 5 MG TABLET PO SCH (21:05)
[2019-09-16] MEDS: ACETAMINOPHEN 325 MG TABLET PO SCH (21:05)
[2019-09-16] MEDS: METHENAMINE HIPPURATE 1 GM TABLET PO SCH (21:06)
[2019-09-17] MEDS: INSULIN REGULAR 100 UNIT/ML SUBCUT SCH ×4 (00:52→17:07)
[2019-09-17 07:35] LABS: Basophils % 0.7 % (0.0-0.8); Eosinophils # 0.6 10*3/uL (0.0-0.87); Eosinophils % 9.3 % (0.00-10.9); Hematocrit 27.2 VOL% (42.0-52.0); Immature Granulocytes % 0.2 %; Immature Granulocytes Absolute 0.01 #; Lymphocytes # 1.2 10*3/uL (1.4-4.0); Lymphocytes % 20.5 % (21.2-54.2); Mean Corpuscular HGB Conc 31.3 GM/DL (32-36); Mean Corpuscular Volume 101.1 FL (87-102); Mean Platelet Volume 10.6 FL (9.6-12.0); Monocytes % 11.7 % (1.7-12.7); Neutrophils % 57.6 % (38.7-73.9); Red Cell Distribution Width 12.5 % (9.3-17.3); White Blood Count 5.9 T/CUMM (4-12)
[2019-09-17 07:37] LABS: Hemoglobin 8.5 GM/DL (14.0-18.0); Platelet Count 106 T/CUMM (130-400); Red Blood Count 2.69 MC/CUMM (3.8-5.5)
[2019-09-17 07:53] LABS: Alanine Aminotransferase 24 U/L (16-61); Albumin 3.2 G/DL (3.4-5.0); Alkaline Phosphatase 61 U/L (45-117); Aspartate Amino Transferase 17 U/L (0-37); Bilirubin,Total < 0.39 MG/DL (0.2-1.0); Blood Urea Nitrogen 60 MG/DL (7-18); Calcium 8.2 MG/DL (8.5-10.1); Estimated Glom Filtration Rate 16 ML/MIN; Glucose 101 MG/DL (74-106); HDL Cholesterol 37 MG/DL (40-60); Osmolality,Calculated 293.5 MOS/KG (273-304); Risk Ratio 3.22; Total Protein 5.9 G/DL (6.4-8.3); Triglycerides 124 MG/DL (2-150); VLDL CHOLESTEROL 24.8 MG/DL
[2019-09-17] MEDS: VENLAFAXINE 37.5 MG TABLET PO SCH ×2 (08:29→21:18)
[2019-09-17] MEDS: DOCUSATE SODIUM 100 MG CAPSULE PO SCH ×2 (08:29→21:18)
[2019-09-17] MEDS: PANTOPRAZOLE 40 MG TABLET PO SCH ×2 (08:29→21:18)
[2019-09-17] MEDS: FOLIC ACID 0.4 MG TABLET PO SCH (08:29)
[2019-09-17] MEDS: GABAPENTIN 100 MG CAPSULE PO SCH ×3 (08:30→21:17)
[2019-09-17] MEDS: BISOPROLOL 5 MG TABLET PO SCH ×2 (08:30→21:17)
[2019-09-17] MEDS: CLOPIDOGREL 75 MG TABLET PO SCH (08:31)
[2019-09-17] MEDS: OMEGA 3 ACID ETHYL ESTERS 1 GM CAPSULE PO SCH (08:31)
[2019-09-17] MEDS: METHENAMINE HIPPURATE 1 GM TABLET PO SCH ×2 (08:31→21:18)
[2019-09-17] MEDS: ACETAMINOPHEN 325 MG TABLET PO SCH ×2 (08:31→21:18)
[2019-09-17] MEDS: ISOSORBIDE MONONITRATE 30 MG TABLET PO SCH ×2 (08:31→21:18)
[2019-09-17] MEDS: ASPIRIN EC 81 MG TABLET PO SCH (08:31)
[2019-09-17] MEDS: GLIMEPIRIDE 2 MG TABLET PO SCH (08:31)
[2019-09-17] MEDS: MULTIVITAMIN (CENTRUM) TABLET PO SCH (08:32)
[2019-09-17] MEDS: FUROSEMIDE 20 MG/2 ML VIAL IV SCH (08:33)
[2019-09-17] MEDS: hydrALAZINE 25 MG TABLET PO SCH ×3 (08:33→21:18)
[2019-09-17] MEDS ORDERED: MULTIVITAMIN (BEROCCA) TABLET PO SCH (09:00)
[2019-09-17] MEDS ORDERED: ASPIRIN EC 81 MG TABLET PO SCH (09:00)
[2019-09-17] MEDS ORDERED: PANTOPRAZOLE 40 MG VIAL IV SCH (09:00)
[2019-09-17] MEDS: ENOXAPARIN 30 MG/0.3 ML SYRINGE SUBCUT SCH (14:59)
[2019-09-17] MEDS: QUEtiapine 25 MG TABLET PO SCH (21:17)
[2019-09-17] MEDS: SIMVASTATIN 40 MG TABLET PO SCH (21:18)
[2019-09-17] MEDS: SODIUM CHLORIDE 0.9% 1,000 ML IV SCH (23:18)
[2019-09-18] MEDS: INSULIN REGULAR 100 UNIT/ML SUBCUT SCH ×2 (00:12→06:44)
[2019-09-18 06:18] LABS: Calcium 8.4 MG/DL (8.5-10.1); Osmolality,Calculated 294.4 MOS/KG (273-304)
[2019-09-18 08:42] VITALS: BP 169/70
[2019-09-18] MEDS: FOLIC ACID 0.4 MG TABLET PO SCH (09:19)
[2019-09-18] MEDS: VENLAFAXINE 37.5 MG TABLET PO SCH (09:19)
[2019-09-18] MEDS: METHENAMINE HIPPURATE 1 GM TABLET PO SCH (09:19)
[2019-09-18] MEDS: GLIMEPIRIDE 2 MG TABLET PO SCH (09:19)
[2019-09-18] MEDS: DOCUSATE SODIUM 100 MG CAPSULE PO SCH (09:20)
[2019-09-18] MEDS: BISOPROLOL 5 MG TABLET PO SCH (09:20)
[2019-09-18] MEDS: PANTOPRAZOLE 40 MG TABLET PO SCH (09:20)
[2019-09-18] MEDS: ISOSORBIDE MONONITRATE 30 MG TABLET PO SCH (09:20)
[2019-09-18] MEDS: hydrALAZINE 25 MG TABLET PO SCH (09:20)
[2019-09-18] MEDS: GABAPENTIN 100 MG CAPSULE PO SCH (09:20)
[2019-09-18] MEDS: OMEGA 3 ACID ETHYL ESTERS 1 GM CAPSULE PO SCH (09:20)
[2019-09-18] MEDS: MULTIVITAMIN (CENTRUM) TABLET PO SCH (09:20)
[2019-09-18] MEDS: CLOPIDOGREL 75 MG TABLET PO SCH (09:21)
[2019-09-18] MEDS: ASPIRIN EC 81 MG TABLET PO SCH (09:21)
[2019-09-18] MEDS: ACETAMINOPHEN 325 MG TABLET PO SCH (09:21)
== END 2019-09-18 11:09 | disposition home or self-care (01) | DRG 291 ==
LOC: N.ED 10:21 → N.EDINP 11:22 → N.TELEN 13:00
PROVIDERS: ADMIT Family Medicine; ATTEND Family Medicine

== ENCOUNTER 2019-10-22 20:35 | Inpatient (IN) ==
[2019-10-22] MEDS ORDERED: METOPROLOL TARTRATE 5 MG/5 ML VIAL IV STA (21:02)
[2019-10-22] MEDS ORDERED: NITROGLYCERIN 2% OINT 1 INCH/GM PACK TOP STA (21:02)
[2019-10-22] MEDS ORDERED: KETOROLAC 30 MG/1 ML VIAL IV STA (21:02)
[2019-10-22] MEDS ORDERED: ORPHENADRINE 60 MG/2 ML VIAL IV STA (21:02)
[2019-10-22 21:17] LABS: Basophils # 0.1 10*3/uL (0.0-0.2); Eosinophils # 0.3 10*3/uL (0.0-0.87); Hematocrit 36.6 VOL% (42.0-52.0); Hemoglobin 11.7 GM/DL (14.0-18.0); Immature Granulocytes % 0.3 %; Immature Granulocytes Absolute 0.02 #; Lymphocytes # 0.9 10*3/uL (1.4-4.0); Lymphocytes % 11.7 % (21.2-54.2); Mean Corpuscular Volume 96.3 FL (87-102); Mean Platelet Volume 10.3 FL (9.6-12.0); Monocytes % 6.6 % (1.7-12.7); Neutrophils % 76.4 % (38.7-73.9); Platelet Count 140 T/CUMM (130-400); Red Cell Distribution Width 11.7 % (9.3-17.3); White Blood Count 7.3 T/CUMM (4-12)
[2019-10-22 21:26] LABS: PT Patient Result 11.2 SECS (9.8-11.9); Partial Thromboplastin Time 27.3 SECS (23.9-33.8)
[2019-10-22 21:29] LABS: Alanine Aminotransferase 23 U/L (16-61); Albumin 3.7 G/DL (3.4-5.0); Alkaline Phosphatase 71 U/L (45-117); Aspartate Amino Transferase 26 U/L (0-37); Bilirubin,Total < 0.39 MG/DL (0.2-1.0); Blood Urea Nitrogen 61 MG/DL (7-18); CKMB % 1.9 %; Calcium 8.5 MG/DL (8.5-10.1); Estimated Glom Filtration Rate 16 ML/MIN; Ferritin 29.8 ng/ml (26-388); Glucose 302 MG/DL (74-106); Osmolality,Calculated 293.4 MOS/KG (273-304); Total Protein 7.4 G/DL (6.4-8.3)
[2019-10-22 21:30] LABS: Troponin I 0.213 NG/ML (0.00-0.045)
[2019-10-22] MEDS ORDERED: ACETAMINOPHEN 500 MG TABLET PO PRN (22:17)
[2019-10-22] MEDS ORDERED: DEXTROSE 50% 25 GM/50 ML VIAL IV PRN (22:17)
[2019-10-22] MEDS ORDERED: ONDANSETRON 4 MG/2 ML VIAL IV PRN (22:17)
[2019-10-22] MEDS ORDERED: GLUCAGON 1 MG VIAL IM PRN (22:17)
[2019-10-22] MEDS ORDERED: fentaNYL 100 MCG/2 ML VIAL IV PRN (22:18)
[2019-10-23] MEDS ORDERED: NITROGLYCERIN SL 0.4 MG TABLET SL PRN (01:07)
[2019-10-23 02:02] LABS: CKMB % 4.2 %
[2019-10-23 02:05] LABS: Troponin I 6.77 NG/ML (0.00-0.045)
[2019-10-23 06:06] LABS: CKMB % 5.2 %; Calcium 8.7 MG/DL (8.5-10.1); Osmolality,Calculated 292.7 MOS/KG (273-304)
[2019-10-23 06:09] LABS: Troponin I 11.2 NG/ML (0.00-0.045)
[2019-10-23] MEDS: INSULIN REGULAR 100 UNIT/ML SUBCUT SCH ×4 (07:54→22:03)
[2019-10-23] MEDS: GLIMEPIRIDE 2 MG TABLET PO SCH (08:29)
[2019-10-23] MEDS: FOLIC ACID 0.4 MG TABLET PO SCH (08:29)
[2019-10-23] MEDS: DOCUSATE SODIUM 100 MG CAPSULE PO SCH (08:29)
[2019-10-23] MEDS: ASPIRIN EC 81 MG TABLET PO SCH (08:29)
[2019-10-23] MEDS: CLOPIDOGREL 75 MG TABLET PO SCH (08:29)
[2019-10-23] MEDS: METHENAMINE HIPPURATE 1 GM TABLET PO SCH ×2 (08:35→22:02)
[2019-10-23] MEDS: VENLAFAXINE 37.5 MG TABLET PO SCH (08:35)
[2019-10-23] MEDS: hydrALAZINE 25 MG TABLET PO SCH ×3 (08:35→22:02)
[2019-10-23] MEDS: GABAPENTIN 100 MG CAPSULE PO SCH ×3 (08:36→22:03)
[2019-10-23] MEDS: PANTOPRAZOLE 40 MG TABLET PO SCH (08:36)
[2019-10-23] MEDS: ISOSORBIDE MONONITRATE 30 MG TABLET PO SCH ×2 (08:36→22:03)
[2019-10-23 08:53] LABS: Apearance,Urine Slightly Hazy (Clear); Bacteria,Urine Occasional /HPF (Few); Bilirubin,Urine Negative (Negative); Blood, Urine Small mg/dL (Negative); Glucose,Urine (UA) 50 mg/dL (Negative); Hyaline Casts,Urine 1 /LPF (0-3); Ketones,Urine Negative (Negative); Mucus,Urine Occasional /LPF (Occasional); Nitrite,Urine Negative (Negative); Protein,Urine Negative; Urine Color Yellow (Yellow); Urine Specific Gravity 1.011 (1.001-1.035); Urine Urobilinogen < 2.0 EU/DL (0.2-1.0); WBC,Urine 4 /HPF (0-6)
[2019-10-23] MEDS ORDERED: FUROSEMIDE 40 MG TABLET PO SCH (09:00)
[2019-10-23] MEDS ORDERED: SODIUM CHLORIDE 0.9% 1,000 ML IV SCH (10:30)
[2019-10-23] MEDS ORDERED: diphenhydrAMINE CAP 25 MG CAPSULE PO ONE (13:27)
[2019-10-23] MEDS ORDERED: DIAZEPAM 5 MG TABLET PO ONE (13:27)
[2019-10-23] MEDS ORDERED: LIDOCAINE 1% 20 ML VIAL ONE (14:16)
[2019-10-23] MEDS ORDERED: fentaNYL 100 MCG/2 ML VIAL ONE (14:28)
[2019-10-23] MEDS ORDERED: MIDAZOLAM 2 MG/2 ML VIAL ONE (14:28)
[2019-10-23] MEDS ORDERED: HEPARIN 5,000 UNIT/1 ML VIAL ONE (14:56)
[2019-10-23] MEDS ORDERED: NIFEdipine 10 MG CAPSULE PO ONE (15:32)
[2019-10-23] MEDS: BISOPROLOL 5 MG TABLET PO SCH (17:20)
[2019-10-23] MEDS ORDERED: SIMVASTATIN 40 MG TABLET PO SCH (21:00)
[2019-10-24 05:12] LABS: Basophils # 0.1 10*3/uL (0.0-0.2); Basophils % 1.2 % (0.0-0.8); Eosinophils # 0.6 10*3/uL (0.0-0.87); Eosinophils % 11.2 % (0.00-10.9); Hemoglobin 9.7 GM/DL (14.0-18.0); Immature Granulocytes % 0.2 %; Immature Granulocytes Absolute 0.01 #; Lymphocytes # 1.3 10*3/uL (1.4-4.0); Lymphocytes % 23.4 % (21.2-54.2); Mean Corpuscular HGB Conc 31.3 GM/DL (32-36); Mean Corpuscular Volume 98.7 FL (87-102); Mean Platelet Volume 9.7 FL (9.6-12.0); Monocytes % 9.1 % (1.7-12.7); Neutrophils % 54.9 % (38.7-73.9); Platelet Count 113 T/CUMM (130-400); Red Blood Count 3.14 MC/CUMM (3.8-5.5); Red Cell Distribution Width 11.7 % (9.3-17.3); White Blood Count 5.7 T/CUMM (4-12)
[2019-10-24 05:42] LABS: Calcium 8.5 MG/DL (8.5-10.1); Osmolality,Calculated 294.8 MOS/KG (273-304)
[2019-10-24 06:01] LABS: Eosinophils 16 % (0-10); Hypochromasia 1+; Lymphocytes 22 % (20-55); Microcytosis 1+; Platelet Estimate Decreased; Segmented Neutrophils 56 % (50-85); Total Cells Counted 100
[2019-10-24] MEDS: INSULIN REGULAR 100 UNIT/ML SUBCUT SCH ×3 (08:35→15:23)
[2019-10-24] MEDS ORDERED: amLODIPine 5 MG TABLET PO SCH (09:00)
[2019-10-24] MEDS ORDERED: SIMVASTATIN 10 MG TABLET PO SCH (09:19)
[2019-10-24] MEDS: GLIMEPIRIDE 2 MG TABLET PO SCH (09:20)
[2019-10-24] MEDS: BISOPROLOL 5 MG TABLET PO SCH (09:21)
[2019-10-24] MEDS: FOLIC ACID 0.4 MG TABLET PO SCH (09:21)
[2019-10-24] MEDS: METHENAMINE HIPPURATE 1 GM TABLET PO SCH (09:21)
[2019-10-24] MEDS: ISOSORBIDE MONONITRATE 30 MG TABLET PO SCH (09:22)
[2019-10-24] MEDS: GABAPENTIN 100 MG CAPSULE PO SCH (09:22)
[2019-10-24] MEDS: PANTOPRAZOLE 40 MG TABLET PO SCH (09:22)
[2019-10-24] MEDS: VENLAFAXINE 37.5 MG TABLET PO SCH (09:22)
[2019-10-24] MEDS: ASPIRIN EC 81 MG TABLET PO SCH (09:22)
[2019-10-24] MEDS: DOCUSATE SODIUM 100 MG CAPSULE PO SCH (09:23)
[2019-10-24] MEDS: CLOPIDOGREL 75 MG TABLET PO SCH (09:23)
[2019-10-24] MEDS: hydrALAZINE 25 MG TABLET PO SCH (09:23)
[2019-10-24 12:26] VITALS: BP 143/61
== END 2019-10-24 15:38 | disposition home or self-care (01) | DRG 281 ==
LOC: EDUNIT# → EDBD → N.EDINP 20:35 → N.ED 20:35 → N.EDINP 10-23 01:00 → N.TELES 10-23 01:09
PROVIDERS: ADMIT Family Medicine; ATTEND Family Medicine

== ENCOUNTER 2019-10-27 06:38 | Inpatient (IN) ==
[2019-10-27] MEDS ORDERED: ONDANSETRON 4 MG/2 ML VIAL ONE ×2 (07:22→07:25)
[2019-10-27] MEDS ORDERED: NITROGLYCERIN DRIP 50 MG/250 ML BOTTLE IV ONE (07:23)
[2019-10-27] MEDS ORDERED: HYDROmorphone 2 MG/1 ML VIAL ONE (07:23)
[2019-10-27 07:24] LABS: Basophils # 0.1 10*3/uL (0.0-0.2); Basophils % 1.1 % (0.0-0.8); Eosinophils # 0.8 10*3/uL (0.0-0.87); Eosinophils % 11.6 % (0.00-10.9); Hematocrit 32.1 VOL% (42.0-52.0); Hemoglobin 10.4 GM/DL (14.0-18.0); Immature Granulocytes % 0.4 %; Immature Granulocytes Absolute 0.03 #; Lymphocytes # 1.7 10*3/uL (1.4-4.0); Lymphocytes % 23.5 % (21.2-54.2); Mean Corpuscular HGB Conc 32.4 GM/DL (32-36); Mean Corpuscular Volume 97.6 FL (87-102); Monocytes % 9.3 % (1.7-12.7); Neutrophils % 54.1 % (38.7-73.9); Platelet Count 138 T/CUMM (130-400); Red Blood Count 3.29 MC/CUMM (3.8-5.5); Red Cell Distribution Width 11.8 % (9.3-17.3); White Blood Count 7.1 T/CUMM (4-12)
[2019-10-27] MEDS ORDERED: ONDANSETRON 4 MG/2 ML VIAL IV STA (07:27)
[2019-10-27] MEDS ORDERED: HYDROmorphone 2 MG/1 ML VIAL IV STA (07:27)
[2019-10-27] MEDS ORDERED: NITROGLYCERIN DRIP 50 MG/250 ML BOTTLE IV SCH (07:30)
[2019-10-27 07:51] LABS: Albumin 3.7 G/DL (3.4-5.0); Bilirubin,Total 0.5 MG/DL (0.2-1.0); Calcium 9.2 MG/DL (8.5-10.1); Osmolality,Calculated 291.1 MOS/KG (273-304); Total Protein 7.5 G/DL (6.4-8.3)
[2019-10-27 07:53] LABS: Eosinophils 21 % (0-10); Hypochromasia 1+; Lymphocytes 23 % (20-55); Microcytosis Slight; Platelet Estimate Adequate; Segmented Neutrophils 46 % (50-85); Total Cells Counted 100
[2019-10-27] MEDS ORDERED: ACETAMINOPHEN 325 MG TABLET PO PRN (09:05)
[2019-10-27] MEDS ORDERED: ONDANSETRON 4 MG/2 ML VIAL IV PRN (09:05)
[2019-10-27] MEDS ORDERED: ACETAMINOPHEN 500 MG TABLET PO PRN (09:09)
[2019-10-27] MEDS: hydrALAZINE 25 MG TABLET PO SCH ×2 (15:20→21:57)
[2019-10-27] MEDS: GABAPENTIN 100 MG CAPSULE PO SCH ×2 (15:20→21:54)
[2019-10-27] MEDS: ISOSORBIDE MONONITRATE 30 MG TABLET PO SCH ×2 (15:20→21:54)
[2019-10-27] MEDS: HYDROmorphone 2 MG/1 ML VIAL IV PRN ×2 (15:21→21:45)
[2019-10-27] MEDS: LIDOCAINE 5% PATCH TRANSDERM SCH (17:55)
[2019-10-27] MEDS ORDERED: DEXTROSE 50% 25 GM/50 ML VIAL IV PRN (20:07)
[2019-10-27] MEDS ORDERED: GLUCAGON 1 MG VIAL IM PRN (20:07)
[2019-10-27] MEDS ORDERED: ISOSORBIDE MONONITRATE 30 MG TABLET PO SCH (21:00)
[2019-10-27] MEDS ORDERED: ASPIRIN CHEW 81 MG TABLET PO ONE (21:26)
[2019-10-27] MEDS ORDERED: NITROGLYCERIN SL 0.4 MG TABLET SL PRN (21:26)
[2019-10-27] MEDS: DOCUSATE SODIUM 100 MG CAPSULE PO SCH ×2 (21:54→21:57)
[2019-10-27] MEDS: SIMVASTATIN 10 MG TABLET PO SCH (21:55)
[2019-10-27] MEDS: BISOPROLOL 5 MG TABLET PO SCH (21:55)
[2019-10-27] MEDS: methylPREDNISolone SOD SUC 40 MG/1 ML VIAL IV SCH (21:56)
[2019-10-27 21:57] LABS: Alanine Aminotransferase 20 U/L (16-61); Albumin 3.3 G/DL (3.4-5.0); Alkaline Phosphatase 68 U/L (45-117); Aspartate Amino Transferase 27 U/L (0-37); Bilirubin,Total < 0.39 MG/DL (0.2-1.0); Blood Urea Nitrogen 61 MG/DL (7-18); Calcium 8.1 MG/DL (8.5-10.1); Estimated Glom Filtration Rate 16 ML/MIN; Glucose 105 MG/DL (74-106); Osmolality,Calculated 293.5 MOS/KG (273-304); Total Protein 6.5 G/DL (6.4-8.3)
[2019-10-27] MEDS ORDERED: ENOXAPARIN 80 MG/0.8 ML SYRINGE SUBCUT ONE (22:00)
[2019-10-27] MEDS: NITROGLYCERIN 2% OINT 1 INCH/GM PACK TOP SCH (22:01)
[2019-10-27] MEDS: METHENAMINE HIPPURATE 1 GM TABLET PO SCH (22:05)
[2019-10-28 06:10] LABS: Basophils % 0.6 % (0.0-0.8); Eosinophils % 0.8 % (0.00-10.9); Hematocrit 28.8 VOL% (42.0-52.0); Immature Granulocytes % 0.2 %; Immature Granulocytes Absolute 0.01 #; Lymphocytes # 0.4 10*3/uL (1.4-4.0); Lymphocytes % 8.3 % (21.2-54.2); Mean Corpuscular HGB Conc 31.3 GM/DL (32-36); Mean Corpuscular Volume 98.6 FL (87-102); Mean Platelet Volume 10.7 FL (9.6-12.0); Monocytes % 2.4 % (1.7-12.7); Neutrophils % 87.7 % (38.7-73.9); Platelet Count 117 T/CUMM (130-400); Red Blood Count 2.92 MC/CUMM (3.8-5.5); Red Cell Distribution Width 11.9 % (9.3-17.3)
[2019-10-28 06:34] LABS: Calcium 8.5 MG/DL (8.5-10.1); Osmolality,Calculated 297.7 MOS/KG (273-304); Uric Acid 8.4 MG/DL (3.5-7.2)
[2019-10-28] MEDS: methylPREDNISolone SOD SUC 40 MG/1 ML VIAL IV SCH ×3 (06:51→21:14)
[2019-10-28] MEDS ORDERED: BISOPROLOL 5 MG TABLET PO SCH (09:00)
[2019-10-28] MEDS: GLIMEPIRIDE 2 MG TABLET PO SCH (09:54)
[2019-10-28] MEDS: INSULIN REGULAR 100 UNIT/ML SUBCUT SCH ×2 (09:54→18:34)
[2019-10-28] MEDS: GABAPENTIN 300 MG CAPSULE PO SCH ×3 (09:58→21:14)
[2019-10-28] MEDS: BISOPROLOL 5 MG TABLET PO SCH ×2 (09:58→21:13)
[2019-10-28] MEDS: FOLIC ACID 1 MG TABLET PO SCH (09:59)
[2019-10-28] MEDS: CLOPIDOGREL 75 MG TABLET PO SCH (09:59)
[2019-10-28] MEDS: ISOSORBIDE MONONITRATE 30 MG TABLET PO SCH ×3 (09:59→21:13)
[2019-10-28] MEDS: amLODIPine 5 MG TABLET PO SCH (09:59)
[2019-10-28] MEDS: hydrALAZINE 25 MG TABLET PO SCH ×3 (09:59→21:14)
[2019-10-28] MEDS: FUROSEMIDE 40 MG TABLET PO SCH (09:59)
[2019-10-28] MEDS: ASPIRIN EC 81 MG TABLET PO SCH (09:59)
[2019-10-28] MEDS: VENLAFAXINE 37.5 MG TABLET PO SCH (09:59)
[2019-10-28] MEDS: METHENAMINE HIPPURATE 1 GM TABLET PO SCH ×2 (09:59→21:13)
[2019-10-28] MEDS: DOCUSATE SODIUM 100 MG CAPSULE PO SCH ×3 (10:03→21:14)
[2019-10-28] MEDS: PANTOPRAZOLE 40 MG TABLET PO SCH (10:04)
[2019-10-28] MEDS: NITROGLYCERIN 2% OINT 1 INCH/GM PACK TOP SCH ×2 (10:04→21:16)
[2019-10-28] MEDS: LIDOCAINE 5% PATCH TRANSDERM SCH (10:06)
[2019-10-28] MEDS: HYDROmorphone 2 MG/1 ML VIAL IV PRN ×2 (11:18→19:44)
[2019-10-28] MEDS ORDERED: ROPIVACAINE 0.5% 30 ML VIAL NERVEBLOCK ONE (11:28)
[2019-10-28] MEDS ORDERED: TRIAMCINOLONE ACETONIDE 40 MG/1 ML VIAL MISC INJ ONE (11:29)
[2019-10-28] MEDS: SIMVASTATIN 10 MG TABLET PO SCH (21:14)
[2019-10-29] MEDS: methylPREDNISolone SOD SUC 40 MG/1 ML VIAL IV SCH ×3 (04:29→20:55)
[2019-10-29 06:59] LABS: Calcium 8.6 MG/DL (8.5-10.1); Osmolality,Calculated 294.4 MOS/KG (273-304)
[2019-10-29] MEDS: INSULIN REGULAR 100 UNIT/ML SUBCUT SCH ×2 (08:30→16:51)
[2019-10-29] MEDS: BISOPROLOL 5 MG TABLET PO SCH ×2 (09:31→20:53)
[2019-10-29] MEDS: FUROSEMIDE 40 MG TABLET PO SCH (09:32)
[2019-10-29] MEDS: ISOSORBIDE MONONITRATE 30 MG TABLET PO SCH ×3 (09:32→20:54)
[2019-10-29] MEDS: DOCUSATE SODIUM 100 MG CAPSULE PO SCH ×3 (09:32→20:54)
[2019-10-29] MEDS: CLOPIDOGREL 75 MG TABLET PO SCH (09:32)
[2019-10-29] MEDS: GLIMEPIRIDE 2 MG TABLET PO SCH (09:32)
[2019-10-29] MEDS: amLODIPine 5 MG TABLET PO SCH (09:32)
[2019-10-29] MEDS: PANTOPRAZOLE 40 MG TABLET PO SCH (09:32)
[2019-10-29] MEDS: GABAPENTIN 300 MG CAPSULE PO SCH ×3 (09:32→20:53)
[2019-10-29] MEDS: NITROGLYCERIN 2% OINT 1 INCH/GM PACK TOP SCH ×2 (09:32→21:00)
[2019-10-29] MEDS: METHENAMINE HIPPURATE 1 GM TABLET PO SCH ×2 (09:32→20:53)
[2019-10-29] MEDS: hydrALAZINE 25 MG TABLET PO SCH ×3 (09:32→20:54)
[2019-10-29] MEDS: ASPIRIN EC 81 MG TABLET PO SCH (09:32)
[2019-10-29] MEDS: VENLAFAXINE 37.5 MG TABLET PO SCH (09:33)
[2019-10-29] MEDS: FOLIC ACID 1 MG TABLET PO SCH (09:33)
[2019-10-29] MEDS: LIDOCAINE 5% PATCH TRANSDERM SCH (09:42)
[2019-10-29] MEDS: HYDROmorphone 2 MG/1 ML VIAL IV PRN ×2 (09:55→19:46)
[2019-10-29] MEDS ORDERED: fentaNYL 25 MCG/HR PATCH TRANSDERM SCH (13:00)
[2019-10-29] MEDS: SIMVASTATIN 10 MG TABLET PO SCH (20:54)
[2019-10-30] MEDS: methylPREDNISolone SOD SUC 40 MG/1 ML VIAL IV SCH (04:23)
[2019-10-30 06:54] LABS: Calcium 8.4 MG/DL (8.5-10.1)
[2019-10-30] MEDS ORDERED: HYDROmorphone 2 MG TABLET PO PRN (06:54)
[2019-10-30 07:56] VITALS: BP 153/72
[2019-10-30] MEDS: GLIMEPIRIDE 2 MG TABLET PO SCH (08:40)
[2019-10-30] MEDS: ASPIRIN EC 81 MG TABLET PO SCH (08:40)
[2019-10-30] MEDS: GABAPENTIN 300 MG CAPSULE PO SCH (08:40)
[2019-10-30] MEDS: FOLIC ACID 1 MG TABLET PO SCH (08:40)
[2019-10-30] MEDS: BISOPROLOL 5 MG TABLET PO SCH (08:40)
[2019-10-30] MEDS: METHENAMINE HIPPURATE 1 GM TABLET PO SCH (08:40)
[2019-10-30] MEDS: amLODIPine 5 MG TABLET PO SCH (08:40)
[2019-10-30] MEDS: hydrALAZINE 25 MG TABLET PO SCH (08:40)
[2019-10-30] MEDS: DOCUSATE SODIUM 100 MG CAPSULE PO SCH (08:41)
[2019-10-30] MEDS: CLOPIDOGREL 75 MG TABLET PO SCH (08:41)
[2019-10-30] MEDS: PANTOPRAZOLE 40 MG TABLET PO SCH (08:41)
[2019-10-30] MEDS: FUROSEMIDE 40 MG TABLET PO SCH (08:41)
[2019-10-30] MEDS: ISOSORBIDE MONONITRATE 30 MG TABLET PO SCH (08:41)
[2019-10-30] MEDS: LIDOCAINE 5% PATCH TRANSDERM SCH (08:42)
[2019-10-30] MEDS: VENLAFAXINE 37.5 MG TABLET PO SCH (08:45)
[2019-10-30] MEDS: INSULIN REGULAR 100 UNIT/ML SUBCUT SCH (11:21)
[2019-10-30] MEDS: NITROGLYCERIN 2% OINT 1 INCH/GM PACK TOP SCH (11:22)
== END 2019-10-30 11:20 | disposition home or self-care (01) | DRG 281 ==
LOC: EDBD → EDUNIT# → N.ED 06:38 → N.EDINP 09:05 → N.TELEN 14:01
PROVIDERS: ADMIT Family Medicine; ATTEND Family Medicine